=== PATIENT | male | born 1990 | race Caucasian/White ===

== ENCOUNTER 2020-03-09 08:18 | Emergency (ER) | payer BC ==
[2020-03-09 08:35] VITALS: BP 121/95; PULSE 74
--- NOTE | 2020-03-09 09:15 | EDM.PDOC ---
ED HPI GENERAL MEDICAL PROBLEM - General Chief Complaint: Abdominal Pain Stated Complaint: RT SIDE PAIN Time Seen by Provider: 03/09/20 09:02 - History of Present Illness INITIAL COMMENTS - FREE TEXT/NARRATIVE: 29-year-old male comes to the emergency room with abdominal pain. Patient has had on and off abdominal pain mostly on the right side for the last 4 to 5 weeks. He has not had associated vomiting diarrhea or constipation with this. Patient had a CAT scan done at the beginning of this month that may been suggestive of umbilical hernia but no acute pathology identified. The patient can only correlate the onset of this pain perhaps associated with dairy products. The pain is mostly right upper quadrant but tends to extend down into the right lower quadrant and occasionally into his back. Patient denies any bur angel or frequency with urination. Right Flank Pain Score (Numeric/FACES): 7 - Related Data Allergies Allergy/AdvReac Type Severity Reaction Status Date / Time Penicillins Allergy Cannot Verified 03/09/20 08:35 Remember pseudoephedrine Allergy Other Verified 03/09/20 08:35 Home Meds: Home Meds . [No Known Home Meds] 12/31/15 [History] Past Medical History - Past Health History Medical/Surgical History: Denies Medical/Surgical History Gastrointestinal History: Reports: GERD (untreated) Endocrine/Metabolic History: Reports: Obesity/BMI 30+ - Past Surgical History HEENT Surgical History: Reports: Adenoidectomy, Tonsillectomy Social & Family History - Living Situation & Occupation Living situation: Reports: , with Spouse Occupation: Employed ED ROS GENERAL - Review of Systems Review Of Systems: See Below Constitutional: Reports: No Symptoms HEENT: Reports: No Symptoms Respiratory: Reports: No Symptoms Cardiovascular: Reports: No Symptoms GI/Abdominal: Reports: Abdominal Pain. Denies: Constipation, Diarrhea, Nausea, Vomiting : Reports: No Symptoms Musculoskeletal: Reports: No Symptoms Skin: Reports: No Symptoms Neurological: Reports: No Symptoms Psychiatric: Reports: No Symptoms Hematologic/Lymphatic: Reports: No Symptoms ED EXAM, GI/ABD - Physical Exam Exam: See Below Exam Limited By: No Limitations General Appearance: Alert, No Apparent Distress Head: Atraumatic, Normocephalic Neck: Normal Inspection, Supple, Non-Tender, Full Range of Motion Respiratory/Chest: No Respiratory Distress, Lungs Clear, Normal Breath Sounds Cardiovascular: Regular Rate, Rhythm, No Edema, No Murmur GI/Abdominal Exam: Normal Bowel Sounds, Soft, Other (Significant obesity. He has some right-sided discomfort with palpation from the upper portion of the lower quadrant on up. This seems to be more lateral however he did have fairly significant discomfort in the area over the gallbladder.) Back Exam: Normal Inspection, CVA Tenderness (R) (This is somewhat vague). No: CVA Tenderness (L) Course - Vital Signs Last Recorded V/S: Last Vital Signs Temp 36.6 C 03/09/20 08:30 Pulse 74 03/09/20 08:30 Resp 16 03/09/20 08:30 BP 121/95 H 03/09/20 08:30 Pulse Ox 96 03/09/20 08:30 - Orders/Labs/Meds Labs: Laboratory Tests 03/09/20 03/09/20 03/09/20 Range/Units 09:45 09:45 11:05 WBC 7.03 (4.23-9.07) K/mm3 RBC 5.71 (4.63-6.08) M/mm3 Hgb 15.3 (13.7-17.5) gm/dl Hct 48.0 (40.1-51.0) % MCV 84.1 (79.0-92.2) fl MCH 26.8 (25.7-32.2) pg MCHC 31.9 L (32.2-35.5) g/dl RDW Std Deviation 42.2 (35.1-43.9) fL Plt Count 211 (163-337) K/mm3 MPV 13.0 H (9.4-12.3) fl Neut % (Auto) 64.1 (34.0-67.9) % Lymph % (Auto) 26.7 (21.8-53.1) % [place] % (Auto) 7.8 (5.3-12.2) % Eos % (Auto) 1.0 (0.8-7.0) Baso % (Auto) 0.3 (0.1-1.2) % Neut # (Auto) 4.50 (1.78-5.38) K/mm3 Lymph # (Auto) 1.88 (1.32-3.57) K/mm3 [place] # (Auto) 0.55 (0.30-0.82) K/mm3 Eos # (Auto) 0.07 (0.04-0.54) K/mm3 Baso # (Auto) 0.02 (0.01-0.08) K/mm3 Sodium 142 (136-145) mEq/L Potassium 4.5 (3.5-5.1) mEq/L Chloride 106 (98-107) mEq/L Carbon Dioxide 28 (21-32) mEq/L Anion Gap 12.5 (5-15) BUN 11 (7-18) mg/dL Creatinine 0.9 (0.7-1.3) mg/dL Est Cr Clr Drug Dosing 127.30 mL/min Estimated GFR (MDRD) > 60 (>60) mL/min BUN/Creatinine Ratio 12.2 L (14-18) Glucose 86 (74-106) mg/dL Calcium 9.1 (8.5-10.1) mg/dL Total Bilirubin 0.5 (0.2-1.0) mg/dL AST 30 (15-37) U/L ALT 69 H (16-63) U/L Alkaline Phosphatase 94 (46-116) U/L Total Protein 7.1 (6.4-8.2) g/dl Albumin 3.6 (3.4-5.0) g/dl Globulin 3.5 gm/dL Albumin/Globulin Ratio 1.0 (1-2) Lipase 81 (73-393) U/L Urine Color Yellow (Yellow) Urine Appearance Clear (Clear) Urine pH 7.5 (5.0-8.0) Ur Specific [place] 1.025 (1.005-1.030) Urine Protein Negative (Negative) Urine Glucose (UA) Negative (Negative) Urine Ketones Negative (Negative) Urine Occult Blood Negative (Negative) Urine Nitrite Negative (Negative) Urine Bilirubin Negative (Negative) Urine Urobilinogen 0.2 (0.2-1.0) Ur Leukocyte Esterase Negative (Negative) - Re-Assessments/Exams Free Text/Narrative Re-Assessment/Exam: 03/09/20 11:01 The blood work is unrevealing at this point. Urinalysis has not been obtained. 03/09/20 11:49 Laboratory evaluation including the urinalysis is unrevealing. I did discuss the pros and cons of a CT with the patient and we both agree that repeating it is of little to no benefit. We will proceed with an outpatient gallbladder ultrasound. At this time I think his pain could perhaps be muscle skeletal versus gallbladder. Not acting like a kidney stone and this probably would have shown up on his CT a few weeks ago. He has no rebound or guarding. Departure - Departure Time of Disposition: 11:52 Disposition: Home, Self-Care 01 Clinical Impression: Right upper quadrant pain - Discharge Information Referrals: Tiffani Rodas MD [Primary Care Provider] - Forms: ED Department Discharge Additional Instructions: Return to the emergency room with any questions problems or worsening symptoms. Follow-up with your regular physician at the end of this week. Have your gallbladder ultrasound done as directed. They will call and schedule this. You should follow-up with your regular healthcare provider to get the results of this. Consider Tylenol on a regular basis for the discomfort. Sepsis Event Note (ED) - Evaluation Sepsis Screening Result: No Definite Risk - Focused Exam Vital Signs: Vital Signs Temp Pulse Resp BP Pulse Ox 03/09/20 08:30 36.6 C 74 16 121/95 H 96
== END 2020-03-09 12:04 | disposition home or self-care (01) ==
LOC: JD.ED 08:18
DX: R10.11 Right upper quadrant pain (principal); E66.9 Obesity, unspecified; Z68.41 Body mass index [BMI] 40.0-44.9, adult; Z88.0 Allergy status to penicillin; Z88.8 Allergy status to other drugs, medicaments and biological substances
CPT/HCPCS: 36415; 80053; 81003; 83690; 85025; 99283; 99284

== ENCOUNTER 2020-04-20 11:13 | Emergency (ER) | payer BC ==
[2020-04-20] MEDS ORDERED: Ondansetron 4 MG/2 ML SDV IVPUSH ONE (11:45)
[2020-04-20] MEDS ORDERED: Sodium Chloride 0.9% 1,000 ML IV SCH (11:45)
[2020-04-20] MEDS ORDERED: HYDROmorphone 1 MG/ML Syringe IVPUSH STA (11:45)
[2020-04-20] MEDS ORDERED: Sodium Chloride 0.9% 10 ML Syringe FLUSH PRN (11:47)
[2020-04-20] MEDS ORDERED: Alum Hydrox/Mag Hydrox/Simeth 30 ML, Lidocaine 2% 15 ML PO ONE ×2 (11:48)
--- NOTE | 2020-04-20 11:54 | EDM.PDOC ---
ED HPI GENERAL MEDICAL PROBLEM - General Chief Complaint: Abdominal Pain Stated Complaint: POSSIBLE HERNIA /VOMITING X 2 WEEKS Time Seen by Provider: 04/20/20 11:34 Source of Information: Reports: Patient, RN Notes Reviewed History Limitations: Reports: No Limitations - History of Present Illness INITIAL COMMENTS - FREE TEXT/NARRATIVE: Patient is a 29-year-old male who presents to the ED for the evaluation of his abdominal pain, with associated nausea/vomiting. Patient notes that he does have an umbilical hernia, that he was diagnosed with roughly 2 months ago. He was worked up at [facility], but states he transferred care to our facility with Silvino Robles, and Dr. Banuelos for ongoing management. He had an appointment to see Dr. Banuelos roughly 2 weeks ago but he had a slight cough so they turned him away. His Covid test at that time was negative. He has not reported any increase in symptoms that would suggest Covid infection. He notes that he does have history of reflux with this hernia, and notes that his cough was due to that. He did reschedule his appoint with Dr. Banuelos, this week Monday. He does note however for the last 2 weeks, he has not been able to keep anything down for solid food and has been trying to keep up with Pedialyte and Gatorade. He states anytime he tries to eat solid food, it comes straight back up along with some stomach bile. He does note that he has lost about 15 to 20 pounds of weight over the last 2 to 3 weeks as well. He has no fevers or chills, cough, or shortness of breath, he does have some abdomen tenderness, by the hernia, and generalized around this. He notes that it hurts quite a bit to take a deep breath, so he feels subjectively short of breath due to this. Patient denies any other abdominal surgeries. Abdomen Pain Score (Numeric/FACES): 4 - Related Data Allergies Allergy/AdvReac Type Severity Reaction Status Date / Time Penicillins Allergy Cannot Verified 04/20/20 11:24 Remember pseudoephedrine Allergy Other Verified 04/20/20 11:24 Home Meds: Home Meds Cyclobenzaprine [Flexeril] 10 mg PO BID PRN 04/20/20 [History] Ondansetron [Zofran ODT] 8 mg SL ASDIRECTED PRN 04/20/20 [History] Past Medical History Gastrointestinal History: Reports: GERD, Other (See Below) Other Gastrointestinal History: umbilical hernia Musculoskeletal History: Reports: Fracture Endocrine/Metabolic History: Reports: Obesity/BMI 30+ - Past Surgical History HEENT Surgical History: Reports: Adenoidectomy, Tonsillectomy Social & Family History - Family History Family Medical History: No Pertinent Family History - Tobacco Use Tobacco Use Status *Q: Never Tobacco User Second Hand Smoke Exposure: No - Caffeine Use Caffeine Use: Reports: Soda - Recreational Drug Use Recreational Drug Use: No - Living Situation & Occupation Living situation: Reports: , with Spouse Occupation: Employed ED ROS GENERAL - Review of Systems Review Of Systems: Comprehensive ROS is negative, except as noted in HPI. ED EXAM, GI/ABD - Physical Exam Exam: See Below Exam Limited By: No Limitations General Appearance: Alert, WD/WN, No Apparent Distress Respiratory/Chest: No Respiratory Distress, Lungs Clear, Normal Breath Sounds, No Accessory Muscle Use, Chest Non-Tender Cardiovascular: Normal Peripheral Pulses, Regular Rate, Rhythm, No Edema GI/Abdominal Exam: Normal Bowel Sounds, Soft, No Distention, No Mass, Hernia (umbilical noted 12 o clock) Back Exam: Other (There are 2 areas on the patient's back, that he was suspicious of after getting the possible metastatic diagnosis. 1 is a pedunculated lesion on the left mid thoracic area, seems to be weeping at the base roughly dime sized. There is another area on the right shoulder as well, patient notes he has had a dermatologic work-up at some point and they told him not to worry about it.) Extremities: Normal Inspection, Normal Capillary Refill Neurological: Alert, Oriented, Normal Cognition, No Motor/Sensory Deficits Psychiatric: Normal Affect, Normal Mood Skin Exam: Warm, Dry, Intact, Normal Color, No Rash Course - Vital Signs Last Recorded V/S: Last Vital Signs Temp 98.9 F 04/20/20 16:47 Pulse 96 04/20/20 16:47 Resp 18 04/20/20 16:47 BP 132/93 H 04/20/20 16:47 Pulse Ox 96 04/20/20 16:47 - Orders/Labs/Meds Orders: Active Orders 24 hr Category Date Time Status Peripheral IV Insertion Adult [OM.PC] Routine Oth 04/20/20 11:47 Ordered Labs: Laboratory Tests 04/20/20 04/20/20 04/20/20 Range/Units 11:55 11:55 12:10 WBC 11.62 H (4.23-9.07) K/mm3 RBC 6.23 H (4.63-6.08) M/mm3 Hgb 16.5 (13.7-17.5) gm/dl Hct 50.6 (40.1-51.0) % MCV 81.2 (79.0-92.2) fl MCH 26.5 (25.7-32.2) pg MCHC 32.6 (32.2-35.5) g/dl RDW Std Deviation 40.7 (35.1-43.9) fL Plt Count 224 (163-337) K/mm3 MPV 13.3 H (9.4-12.3) fl Neutrophils % (Manual) 79 H (40-60) % Band Neutrophils % 0 (0-10) % Lymphocytes % (Manual) 14 L (20-40) % Atypical Lymphs % 0 % Monocytes % (Manual) 7 (2-10) % Eosinophils % (Manual) 0 L (0.8-7.0) % Basophils % (Manual) 0 L (0.2-1.2) Platelet Estimate Adequate RBC Morph Comment Normal Sodium 140 (136-145) mEq/L Potassium 4.1 (3.5-5.1) mEq/L Chloride 103 (98-107) mEq/L Carbon Dioxide 26 (21-32) mEq/L Anion Gap 15.1 H (5-15) BUN 10 (7-18) mg/dL Creatinine 0.9 (0.7-1.3) mg/dL Est Cr Clr Drug Dosing 127.30 mL/min Estimated GFR (MDRD) > 60 (>60) mL/min BUN/Creatinine Ratio 11.1 L (14-18) Glucose 85 (74-106) mg/dL Lactic Acid 1.1 (0.4-2.0) mmol/L Calcium 9.4 (8.5-10.1) mg/dL Total Bilirubin 0.8 (0.2-1.0) mg/dL AST 35 (15-37) U/L ALT 46 (16-63) U/L Alkaline Phosphatase 120 H (46-116) U/L C-Reactive Protein 4.6 H* (<1.0) mg/dL Total Protein 7.6 (6.4-8.2) g/dl Albumin 3.8 (3.4-5.0) g/dl Globulin 3.8 gm/dL Albumin/Globulin Ratio 1.0 (1-2) Urine Color (Yellow) Urine Appearance (Clear) Urine pH (5.0-8.0) Ur Specific [place] (1.005-1.030) Urine Protein (Negative) Urine Glucose (UA) (Negative) Urine Ketones (Negative) Urine Occult Blood (Negative) Urine Nitrite (Negative) Urine Bilirubin (Negative) Urine Urobilinogen (0.2-1.0) Ur Leukocyte Esterase (Negative) Urine RBC (0-5) /hpf Urine WBC (0-5) /hpf Ur Squamous Epith Cells (0-5) /hpf Urine Bacteria (FEW) /hpf Urine Mucus (FEW) /hpf Influenza Type A RNA (NEGATIVE) Influenza Type B RNA (NEGATIVE) SARS-CoV-2 RNA (MARI) (NEGATIVE) 04/20/20 04/20/20 Range/Units 14:25 14:45 WBC (4.23-9.07) K/mm3 RBC (4.63-6.08) M/mm3 Hgb (13.7-17.5) gm/dl Hct (40.1-51.0) % MCV (79.0-92.2) fl MCH (25.7-32.2) pg MCHC (32.2-35.5) g/dl RDW Std Deviation (35.1-43.9) fL Plt Count (163-337) K/mm3 MPV (9.4-12.3) fl Neutrophils % (Manual) (40-60) % Band Neutrophils % (0-10) % Lymphocytes % (Manual) (20-40) % Atypical Lymphs % % Monocytes % (Manual) (2-10) % Eosinophils % (Manual) (0.8-7.0) % Basophils % (Manual) (0.2-1.2) Platelet Estimate RBC Morph Comment Sodium (136-145) mEq/L Potassium (3.5-5.1) mEq/L Chloride (98-107) mEq/L Carbon Dioxide (21-32) mEq/L Anion Gap (5-15) BUN (7-18) mg/dL Creatinine (0.7-1.3) mg/dL Est Cr Clr Drug Dosing mL/min Estimated GFR (MDRD) (>60) mL/min BUN/Creatinine Ratio (14-18) Glucose (74-106) mg/dL Lactic Acid (0.4-2.0) mmol/L Calcium (8.5-10.1) mg/dL Total Bilirubin (0.2-1.0) mg/dL AST (15-37) U/L ALT (16-63) U/L Alkaline Phosphatase (46-116) U/L C-Reactive Protein (<1.0) mg/dL Total Protein (6.4-8.2) g/dl Albumin (3.4-5.0) g/dl Globulin gm/dL Albumin/Globulin Ratio (1-2) Urine Color Yellow (Yellow) Urine Appearance Clear (Clear) Urine pH 7.5 (5.0-8.0) Ur Specific [place] 1.010 (1.005-1.030) Urine Protein Negative (Negative) Urine Glucose (UA) Negative (Negative) Urine Ketones 3+ H (Negative) Urine Occult Blood Trace-intact H (Negative) Urine Nitrite Negative (Negative) Urine Bilirubin Negative (Negative) Urine Urobilinogen 0.2 (0.2-1.0) Ur Leukocyte Esterase Negative (Negative) Urine RBC 0-5 (0-5) /hpf Urine WBC 0-5 (0-5) /hpf Ur Squamous Epith Cells 0-5 (0-5) /hpf Urine Bacteria Few (FEW) /hpf Urine Mucus Not seen (FEW) /hpf Influenza Type A RNA Negative (NEGATIVE) Influenza Type B RNA Negative (NEGATIVE) SARS-CoV-2 RNA (MARI) Negative (NEGATIVE) Meds: Medications Discontinued Medications Generic Name Dose Route Start Last Admin Trade Name Freq PRN Reason Stop Dose Admin Al Hydroxide/Mg Hydroxide 30 0 ml 04/20/20 11:48 04/20/20 12:23 ml/ Lidocaine HCl 15 ml PO 04/20/20 11:49 45 ml ONETIME ONE Administration Diatrizoate Meglum/Diatrizoate Sod 90 ml 04/20/20 12:32 04/20/20 12:36 Gastrografin 37% PO 04/20/20 12:33 45 ml ONETIME ONE Administration Hydromorphone HCl 1 mg 04/20/20 11:45 04/20/20 12:17 Dilaudid IVPUSH 04/20/20 11:46 1 mg ONETIME STA Administration Hydromorphone HCl 1 mg 04/20/20 16:25 04/20/20 16:34 Dilaudid IVPUSH 04/20/20 16:26 1 mg ONETIME ONE Administration Sodium Chloride 1,000 mls @ 999 mls/hr 04/20/20 11:45 04/20/20 12:22 Normal Saline IV 999 mls/hr ASDIRECTED EVAN Administration Iopamidol 25 ml 04/20/20 12:32 04/20/20 12:35 Isovue-300 (61%) IVPUSH 04/20/20 12:33 25 ml ONETIME ONE Administration Iopamidol 100 ml 04/20/20 12:32 04/20/20 12:35 Isovue-300 (61%) IVPUSH 04/20/20 12:33 100 ml ONETIME ONE Administration Ondansetron HCl 4 mg 04/20/20 11:45 04/20/20 12:15 Zofran IVPUSH 04/20/20 11:46 4 mg ONETIME ONE Administration Sodium Chloride 10 ml 04/20/20 11:47 04/20/20 12:20 Saline Flush FLUSH 10 ml ASDIRECTED PRN Administration Keep Vein Open Sodium Chloride 10 ml 04/20/20 12:32 04/20/20 12:36 Saline Flush FLUSH 04/20/20 12:33 10 ml ONETIME ONE Administration - Re-Assessments/Exams Free Text/Narrative Re-Assessment/Exam: 04/20/20 11:53 Patient presents to the ED for his hernia with associated nausea/vomiting. I am concerned about the possibility of a strangulated hernia. We will get CT imaging for evaluation, get basic labs given some pain medications some nausea medications, for initial evaluation and management. 04/20/20 12:51 Patient's labs have been done, demonstrate no major focal abnormalities, CRP mildly elevated at 4.7, lactic acid in normal limits at 1.1. Again I am worried that there might be some strangulation going on. And it is also concerning that he is lost over 15 to 20 pounds in the last 2 weeks as he has not been able to eat any solid foods. Still awaiting CT results, but may be we can get the gentleman in for more urgent evaluation and/or management. 04/20/20 13:[address] has been performed, there are multiple nodular densities within the approximate greater omentum, suspicious for numerous lymph nodes possibly from metastatic disease. Ascites is identified within the abdomen and pelvis. Vague low-density lesions within the right lobe possibly due to metastatic lesions. Small left sided pleural effusion, and mild basilar left atelectasis, and there is a fat-containing umbilical hernia with no inflammatory change to suggest strangulation at this time. I did relay this information to the patient, we will get a chest x-ray, and a scrotum ultrasound for further evaluation. I did discuss this with Dr. Caballero as well, he states that testicle lesions, or lymphoma would be in the differential for possible etiology. I will try to call oncology at [facility], for further work-up. 04/20/20 14:53 Dr. Conley was oncologist outside [employer], and does tentatively accept the patient for admission pending discharges. They know it will be a few hours before he can be transferred to [place]. Again we are doing some further work-up to include ultrasounds. Chest x-ray was without remarkable findings at today's visit. We will try to get the patient transferred to [facility] for possible biopsies of areas that were suspicious. 04/20/20 15:52 Patient's COVID-19 screen did come back negative. We will discharge him at this time, for transfer to [place]. 04/20/20 15:58 There are a few skin lesions on the back, the patient was concerned about, I did tell him to follow-up with the doctors in [place], for possible biopsies of those areas. 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 A CT was performed, and there are multiple lymph nodes, that are suspicious for metastatic disease. You are being sent to [facility] in [place] for further evaluation, for biopsies. Please be forthcoming with the doctors about any lesions or otherwise on your body, so that they can provide you appropriate care. It is likely that you will just have biopsies taken, will need to wait a little bit for results, and then have an appropriate plan set forth for you. When you are discharged from this hospital, please try not to delay getting to [place], get what you need at home, and go straight to [place] for further management. You will probably have to present to the ER desk, and tell them you are there for direct admission. Sepsis Event Note (ED) - Evaluation Sepsis Screening Result: No Definite Risk - Focused Exam Vital Signs: Vital Signs Temp Pulse Resp BP Pulse Ox 04/20/20 16:47 98.9 F 96 18 132/93 H 96 04/20/20 16:25 98.9 F 96 18 132/93 H 96 04/20/20 11:20 96.9 F 104 H 18 140/102 H 96 - My Orders Last 24 Hours: My Active Orders 04/20/20 11:47 Peripheral IV Insertion Adult [OM.PC] Routine - Assessment/Plan Last 24 Hours: My Active Orders 04/20/20 11:47 Peripheral IV Insertion Adult [OM.PC] Routine
[2020-04-20] MEDS ORDERED: Sodium Chloride 0.9% 10 ML Syringe FLUSH ONE (12:32)
[2020-04-20] MEDS ORDERED: Diatrizoate Meglumine/Diatrizoate Sodium 37% 120 ML Bottle PO ONE (12:32)
[2020-04-20] MEDS ORDERED: Iopamidol 612 MG/ML 50 ML SDV IVPUSH ONE (12:32)
[2020-04-20] MEDS ORDERED: Iopamidol 612 MG/ML 100 ML Bottle IVPUSH ONE (12:32)
--- NOTE | 2020-04-20 13:16 | CT ---
CT abdomen and pelvis Technique: Multiple axial sections were obtained from above the dome of the diaphragm inferiorly through the pubic symphysis. Intravenous contrast was utilized. No oral contrast has been given. Reconstructed coronal and sagittal images were obtained. Findings: Small left-sided pleural effusion is seen. Minimal left basilar atelectasis is noted. There is a mild amount of ascites seen around the liver as well as within the abdomen and pelvis. Low density areas are seen within the left lobe of the liver. These low-density lesions are not well identified but the largest lesion measures approximately 2.6 cm. There is some fatty infiltration also seen within the right lobe of the liver. Spleen shows no focal abnormality. Adrenal glands show no nodule. Pancreas is within normal limits. Multiple small scattered nodular densities are seen anteriorly within the approximate greater omentum most likely due to multiple lymph nodes raising the possibility of metastatic disease. Small fat-containing umbilical hernia is noted. No pelvic mass or adenopathy is appreciated. Kidneys show symmetric contrast enhancement with no hydronephrosis or discrete mass. Delayed images show contrast excretion from both kidneys into nondilated ureters and into the bladder. Bone window settings were reviewed which show nothing acute. Impression: 1. Multiple nodular densities within the approximate greater omentum suspicious for numerous lymph nodes possibly from metastatic disease. 2. Ascites is identified within the abdomen and pelvis. 3. Vague low density lesions within the right lobes possibly due to metastatic lesions. 4. Small left-sided pleural effusion and mild left basilar atelectasis. 5. Fat-containing umbilical hernia with no inflammatory change. Diagnostic code #9
--- NOTE | 2020-04-20 14:46 | CR ---
Chest: 2 views of the chest were obtained. Comparison: Prior chest x-ray of 12/31/15. Heart size and mediastinum are normal. Lungs are clear with no acute parenchymal change. Bony structures appear within normal limits for the patient's age. Impression: 1. Nothing acute is seen on 2 view chest x-ray. Diagnostic code #1
[2020-04-20 15:39] LABS: CORONAVIRUS COVID-19 NAA NEGATIVE (NEGATIVE)
--- NOTE | 2020-04-20 15:58 | US ---
Testicular ultrasound: Multiple real-time images of both testicles were obtained. Comparison: No prior testicular imaging is available. Findings: Testicles show small calcifications. These are fairly widely distributed and most likely are benign. No focal abnormality is otherwise seen. Both arterial and venous blood flow are seen. Very small amount of fluid is seen around the left testicle. There is a left-sided epididymal cyst measuring 8 mm. Measurements: Right testicle: 4.4 x 2.2 x 2.8 cm Left testicle: 4.8 x 2.1 x 2.9 cm Impression: 1. Small scattered calcifications within both testicles. These are most likely benign given their wide distribution. 2. Other findings as noted above which are benign. Diagnostic code #3
--- NOTE | 2020-04-20 15:59 | US ---
Limited abdominal ultrasound: Multiple real-time images of the upper right abdomen were obtained. Comparison: Prior CT abdomen and pelvis performed earlier on the same day. Limitations: Poor ultrasound windows, unable to visualize left lobe of the liver, right lobe poorly visualized Findings: Liver not well seen. Gallbladder shows no shadowing gallstones. No gallbladder wall thickening is appreciated. Right kidney shows no hydronephrosis or mass. Right kidney has a length of approximately 10.6 cm. Pancreas is poorly seen. Scattered ascites is present. Main portal vein shows normal hepatopedal flow. Impression: 1. Suboptimal study as noted above. 2. Scattered ascites is seen. 3. No other gross abnormality is appreciated. Diagnostic code #2
[2020-04-20] MEDS ORDERED: HYDROmorphone 1 MG/ML Syringe IVPUSH ONE (16:25)
[2020-04-20 17:04] VITALS: BP 132/93
[2020-04-20 17:11] VITALS: PULSE 96
== END 2020-04-20 16:55 ==
LOC: JD.ED 11:13
DX: C77.8 Secondary and unspecified malignant neoplasm of lymph nodes of multiple regions (principal); C80.1 Malignant (primary) neoplasm, unspecified; J90 Pleural effusion, not elsewhere classified; R18.8 Other ascites; Z88.5 Allergy status to narcotic agent; Z88.8 Allergy status to other drugs, medicaments and biological substances
CPT/HCPCS: 0240U; 36415; 71046; 74177; 76705; 76870; 80053; 81001; 83605; 85007; 85027; 86140; 93975; 96374; 96375; 96376; 99285; A9270; J1170; J2405; J7030; Q9963; Q9967

== ENCOUNTER 2020-05-24 15:17 | Emergency (ER) | payer BC ==
[2020-05-24 15:53] VITALS: BP 141/99; PULSE 87
--- NOTE | 2020-05-24 17:02 | EDM.PDOC ---
ED HPI GENERAL MEDICAL PROBLEM - General Chief Complaint: Abdominal Pain Stated Complaint: ABDOMINAL PAIN Time Seen by Provider: 05/24/20 16:45 Source of Information: Reports: Patient, Family History Limitations: Reports: No Limitations - History of Present Illness INITIAL COMMENTS - FREE TEXT/NARRATIVE: 29-year-old male presents to the ED due to increased abdominal pain over the last 3 days. 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 Patient has developed significant ascites and required 4 paracentesis treatments in the last month to relieve abdominal pain and pressure. Today he presents with increased abdominal pain and pressure with difficulty taking a full deep breath. Patient last had chemotherapy on May 20. This subsequently has produced significant intermittent abdominal cramping pain with large volume diarrhea stool x3 yesterday and twice today. He took Imodium 2 tablets with initial diarrhea stool and subsequently 1 further after diarrhea stool. Mild associated nausea. He has been keeping down fluids and feels he has had adequate urinary flow. Denies fever or chills. Of note the patient is on Lovenox subcu once daily in the morning for prevention of DVT/pulmonary embolism. When the patient left [facility] and [place] he was on Lovenox twice daily. Patient is currently being followed by Dr. Retana oncologist at [facility] and care is going to be continued here in [place] at the infusion center by Dr. Joshua. She is currently on fentanyl patch he believes 12 mcg/h. He has a prescription for 50 mcg/h patches which she will fill tentatively tomorrow. Onset: Gradual Onset Date: 05/22/20 Duration: Day(s):, Getting Worse Location: Reports: Abdomen (Diffuse abdominal pressure discomfort with increased difficulty breathing today due to ascites.) Quality: Reports: Ache, Pressure, Other (Occasional sharp stabbing cramping pain usually) Severity: Severe Improves with: Reports: None Worsens with: Reports: Other Context: Reports: Other (She does identify April 202019 to have ascites secondary to nonspecific malignancy involving the omentum and peritoneum. Subsequent biopsy of lymph nodes revealed a nonspecific adenocarcinoma. Upper GI endoscopy proved to be negative. Colonoscopy proved to be difficult due to retention of stool but no definitive mass was appreciated in the large bowel. At present he is receiving chemotherapy on a weekly basis aimed at adenocarcinoma of the colon.). Denies: Activity, Exercise, Lifting, Sick Contact, Trauma Associated Symptoms: Reports: Cough, cough w sputum, Loss of Appetite, Malaise, Nausea/Vomiting, Shortness of Breath, Weakness (Intermittent nausea no vomiting Fuhs weakness). Denies: Confusion, Chest Pain, Diaphoresis, Fever/Chills, Headaches Treatments WIRE DRAWING SETTER: Reports: Other (see below) Other Treatments WIRE DRAWING SETTER: dilaudid 3 mg Abdomen Pain Score (Numeric/FACES): 7 - Related Data Allergies Allergy/AdvReac Type Severity Reaction Status Date / Time Penicillins Allergy Severe Cannot Verified 05/24/20 15:45 Remember pseudoephedrine Allergy Severe Other Verified 05/24/20 15:45 Home Meds: Home Meds Cyclobenzaprine [Flexeril] 10 mg PO BID PRN 04/20/20 [History] Ondansetron [Zofran ODT] 8 mg SL ASDIRECTED PRN 04/20/20 [History] Past Medical History Other Cardiovascular History: 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-getting lovenox shots Gastrointestinal History: Reports: GERD, Other (See Below) Other Gastrointestinal History: umbilical hernia Musculoskeletal History: Reports: Fracture Endocrine/Metabolic History: Reports: Obesity/BMI 30+ Oncologic (Cancer) History: Reports: Other (See Below) Other Oncologic History: lymph node of abdominal wall - Past Surgical History HEENT Surgical History: Reports: Adenoidectomy, Tonsillectomy Social & Family History - Family History Family Medical History: No Pertinent Family History - Tobacco Use Tobacco Use Status *Q: Former Tobacco User Used Tobacco, but Quit: Yes Month/Year Tobacco Last Used: 3 months - Caffeine Use Caffeine Use: Reports: None - Recreational Drug Use Recreational Drug Use: No - Living Situation & Occupation Living situation: Reports: , with Spouse Occupation: Employed ED ROS GENERAL - Review of Systems Review Of Systems: See Below Constitutional: Reports: Malaise, Weakness, Fatigue, Decreased Appetite, Weight Loss. Denies: Fever, Chills HEENT: Reports: No Symptoms Respiratory: Reports: Shortness of Breath, Cough. Denies: Wheezing, Pleuritic Chest Pain, Sputum, Hemoptysis (Nonproductive cough) Cardiovascular: Reports: Dyspnea on Exertion ( Mild edema lower extremities), Edema (Remittent.), Lightheadedness, Orthopnea. Denies: Chest Pain, Blood Pressure Problem, Claudication, Palpitations Endocrine: Reports: Fatigue GI/Abdominal: Reports: Abdominal Pain (See history of present illness), Diarrhea (Dense chemotherapy given 3 days ago. On average 3 loose bowel movements per day) : Reports: No Symptoms Musculoskeletal: Reports: No Symptoms Skin: Reports: No Symptoms Neurological: Reports: No Symptoms Psychiatric: Reports: No Symptoms Hematologic/Lymphatic: Reports: No Symptoms Immunologic: Reports: No Symptoms ED EXAM, GI/ABD - Physical Exam Exam: See Below Exam Limited By: No Limitations General Appearance: Alert, WD/WN, Mild Distress, Other (Patient is pallid in color and appears to be in moderate discomfort. Temperature was 35.8. Heart rate 87 and sinus on the monitor respiratory of 20 with O2 sats of 97% room air BP initially elevated 1 4199.) Eyes: Bilateral: Normal Appearance (Mild blepharal pallor and very minimal scleral icterus appreciated on exam) Throat/Mouth: Other (Tongue is moist. No oropharyngeal thrush or) Head: Atraumatic, Normocephalic ( inflammation) Neck: Normal Inspection, Supple, Non-Tender, Full Range of Motion. No: Carotid Bruit, Lymphadenopathy (L), Lymphadenopathy (R) Respiratory/Chest: Lungs Clear (Tachypnea at rest), Normal Breath Sounds, No Accessory Muscle Use, Respiratory Distress. No: Rales, Rhonchi, Wheezing Cardiovascular: Normal Peripheral Pulses, Regular Rate, Rhythm, No Edema, No Gallop, No Murmur, No Rub GI/Abdominal Exam: Distended (The abdomen is diffusely distended and firm to palpation compatible with ascites. No palpable masses appreciated on the abdominal wall), Tender (Diffuse abdominal tenderness worse right upper quadrant of the abdomen distribution of his liver. Liver is palpable 1 cm below the right costal margin.), Abnormal Bowel Sounds (Bowel sounds are active in all 4 quadrants.), Hepatomegaly, Other (Abdominal wall has numerous superficial ecchymoses secondary to Lovenox injections twice daily for the last week). No: Splenomegaly Back Exam: Normal Inspection, Full Range of Motion. No: CVA Tenderness (L), CVA Tenderness (R) Extremities: Normal Inspection, Normal Range of Motion, Non-Tender, Pedal Edema (Is pedal edema right lower extremity) Neurological: Alert, Oriented, CN II-XII Intact, Normal Cognition Psychiatric: Normal Affect, Normal Mood Skin Exam: Warm, Dry, Intact, Pallor (Pallor.) Course - Vital Signs Last Recorded V/S: Last Vital Signs Temp 35.8 C L 05/24/20 15:51 Pulse 87 05/24/20 15:51 Resp 20 05/24/20 15:51 BP 141/99 H 05/24/20 15:51 Pulse Ox 97 05/24/20 15:51 - Orders/Labs/Meds Orders: Active Orders 24 hr Category Date Time Status Chest 1V Frontal [CR] Stat Exams 05/24/20 17:01 Taken fentaNYL [Duragesic] Med 05/24/20 22:45 Active 25 mcg TRDERM Q72H Medication Orders Fentanyl (Duragesic) 25 mcg TRDERM Q72H EVAN Last Admin: 05/24/20 23:02 Dose: 25 mcg Documented by: ROSALIE Meds: Medications Generic Name Dose Route Start Last Admin Trade Name Freq PRN Reason Stop Dose Admin Fentanyl 25 mcg 05/24/20 22:45 05/24/20 23:02 Duragesic TRDERM 25 mcg Q72H EVAN Administration Discontinued Medications Generic Name Dose Route Start Last Admin Trade Name Freq PRN Reason Stop Dose Admin Hydromorphone HCl 1 mg 05/24/20 18:04 05/24/20 19:35 Dilaudid IVPUSH 05/24/20 18:05 1 mg ONETIME ONE Administration Hydromorphone HCl Confirm 05/24/20 21:18 05/24/20 21:24 Dilaudid Administered 05/24/20 21:19 Not Given Dose 1 mg .ROUTE .STK-MED ONE Hydromorphone HCl 1 mg 05/24/20 21:20 05/24/20 21:37 Dilaudid IVPUSH 05/24/20 21:21 1 mg ONETIME ONE Administration Hydromorphone HCl 1 mg 05/24/20 22:31 05/24/20 23:01 Dilaudid IVPUSH 05/24/20 22:32 1 mg ONETIME ONE Administration Lidocaine/Epinephrine 20 ml 05/24/20 18:05 05/24/20 22:00 Xylocaine 1% With Epinephrine 1:100,000 INJECT 05/24/20 18:06 20 ml ONETIME ONE Administration Lidocaine/Epinephrine Confirm 05/24/20 18:17 05/24/20 21:25 Xylocaine 1% With Epinephrine 1:100,000 Administered 05/24/20 18:18 Not Given Dose 20 ml .ROUTE .STK-MED ONE Metoclopramide HCl 10 mg 05/24/20 21:21 05/24/20 21:35 Reglan IVPUSH 05/24/20 21:22 10 mg ONETIME ONE Administration Metoclopramide HCl Confirm 05/24/20 21:21 05/24/20 21:25 Reglan Administered 05/24/20 21:22 Not Given Dose 10 mg .ROUTE .STK-MED ONE Midazolam HCl 2 mg 05/24/20 18:05 Versed 1 Mg/Ml IVPUSH 05/24/20 18:06 ONETIME ONE Midazolam HCl Confirm 05/24/20 18:22 05/24/20 21:24 Versed 1 Mg/Ml Administered 05/24/20 18:23 Not Given Dose 4 mg .ROUTE .STK-MED ONE Midazolam HCl 2 mg 05/24/20 21:20 05/24/20 21:40 Versed 1 Mg/Ml IVPUSH 05/24/20 21:21 2 mg ONETIME ONE Administration - Radiology Interpretation Free Text/Narrative:: 29-year-old male presents to the ED in the hopes of getting a paracentesis done to relieve his diffuse abdominal pain. 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 Subsequently he was seen at [facility]. Initial biopsies there revealed a nonspecific adenocarcinoma. Upper GI endoscopy did n ot reveal any positive findings. Lower GI endoscopy revealed significant stool in the colon but no positive findings for a colonic tumor. Patient is being treated at this time by oncology services at [facility] in [place] primarily by Dr. Retana with a transfer to Dr. Joshua who comes to [place] every 2 weeks for treatment with chemotherapy at the infusion center to lessen his travel needs to [place]. Patient has had paracentesis x4 in the last month with the last procedure performed on May 20. Last dose of chemotherapy was given May 22. Patient has subsequently had mild nausea and diarrhea post chemotherapy treatment. Examination confirms significant ascites with decreased air entry to both lower lung lopez. No rales appreciated on exam of the lungs. Patient feels he is getting adequate fluids at this time and declines IV. He has a PICC line left antecubital fossa. Plan chest x-ray to be completed to make sure there is no significant pleural effusions. Plan will then be to perform paracentesis under local anesthetic. - Re-Assessments/Exams Free Text/Narrative Re-Assessment/Exam: 05/24/20 18:06 chest x-ray reveals decreased volume of both lung lopez due to ascites. There is mild diffuse vascular congestion pattern without pleural effusion. Cardiac silhouette is normal in size. Patient wishes to pursue paracentesis to relieve his shortness of breath. Last paracentesis was done 6 days ago in [facility] in [place]. Consent form to be signed. Plan to use lidocaine 1% with epinephrine since he is injecting himself once daily with Lovenox. 05/24/20 21:21 patient has been patiently waiting in the busy ER for paracentesis procedure to be performed. Initial medications i.e. Dilaudid 1 mg and Versed 1 mg have worn off. At present he is nauseated with increased diffuse abdominal pain due to a combination of invasion of the peritoneum from carcinoma and significant ascites. Patient will be given Reglan 10 mg IV with repeat Dilaudid 1 mg IV and Versed 2 mg IV at this time. Plan to go ahead with paracentesis once he is comfortable. 05/24/20 22:32 Attempts at paracentesis x2 were unsuccessful at removing any fluid from the abdominal cavity. I was fairly confident that I had reached the peritoneal cavity on both occasions. Patient tolerated procedure very well. Subsequent ultrasound performed at the bedside reveals only about 100 250 mils of fluid in the pelvis and a few pockets of fluid in the right paracolic gutter. I could see no fluid in the left paracolic gutter or around the spleen. Procedure was therefore abandoned. It appears that the patient's increased abdominal pain is actually probably invasion of tumor into the peritoneum. I believe his respiratory splinting is secondary to increased abdominal pain and inability to take a full deep breath. Bedside ultrasound did not reveal any significant fluid around the liver either. Urinary bladder is empty. Plan I am going to place the patient on 25 mcg/h fentanyl patch as he is currently been on the 12 mcg/h patches for the last 2 weeks without control of his pain. He has been using 2 mg Dilaudid tablets 1-1/2 tablets every 4 hours as needed for breakthrough pain with very little relief. Departure - Departure Time of Disposition: 22:45 Disposition: Home, Self-Care 01 Condition: Fair Clinical Impression: Adenocarcinoma carcinomatosis Abdominal pain Qualifiers: Abdominal location: generalized Qualified Code(s): R10.84 - Generalized abdominal pain - Discharge Information *PRESCRIPTION DRUG MONITORING PROGRAM REVIEWED*: Not Applicable *COPY OF PRESCRIPTION DRUG MONITORING REPORT IN PATIENT SIMONE: Not Applicable Instructions: Abdominal Pain, Adult, [id number] Referrals: Narayan Robles NP [Primary Care Provider] - Forms: ED Department Discharge Additional Instructions: Evaluation in the emergency room today in regards to increased abdominal pain and diffuse pressure throughout the abdomen worsened by deep breathing and movement. Associated development of diarrhea since having chemotherapy on Monday last week. Recent diagnosis of an adenocarcinoma in the abdomen of unclear source or etiology. 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 Concern today was of increased abdominal pressure discomfort felt to be secondary to accumulation of fluid in the abdomen which we called ascites. Last paracentesis or drainage of fluid from the abdomen was done 5 days ago while you were in [place]. An x-ray of your chest performed in the ED today revealed decreased filling of the lungs to about 65% of normal capacity felt to be limited by fluid in the abdomen. Unfortunately on attempts at removing fluid from the abdomen call paracentesis in your right lower quadrant no fluid was obtained. An ultrasound done at the bedside revealed only small pockets of fluid in the pelvis and right lower quadrant with no fluid in the left paracolic gutter. Therefore it appears that your limited ability to take a deep breath secondary to deep breathing making the abdominal pain worse. Pain management is required and I would suggest increasing her fentanyl patch in the morning from 12 mcg/h to 25 mcg/h which will get you through the next 72 hours and hopefully things can be sorted out with your insurance company about fentanyl prescription and appropriate dosage. Usually we would only double the dose every week to 2 weeks before increasing the dose. Also oral Dilaudid may not be very helpful as it is poorly absorbed. You might find Percocet 10/325 mg 1 tablet or 2 tablets every 4-6 hours for breakthrough pain more successful in pain management. Return to medical care this week as planned. Pain management needs to become involved in getting your abdominal pain under control. Return to medical care sooner if you develop any fever chills or persistent nausea and vomiting. Hopefully diarrhea will settle down with pain management. Fluids to be Gatorade/Powerade which is identical to IV fluid replacement. Ideally sipping 5 to 6 ounces per hour will usually be absorbed without aggravating diarrhea. Avoid all dairy products and no apple juice or grape juice until stools are formed back up after recent chemotherapy. Sepsis Event Note (ED) - Evaluation Sepsis Screening Result: No Definite Risk - Focused Exam Vital Signs: Vital Signs Temp Pulse Resp BP Pulse Ox 05/24/20 15:51 35.8 C L 87 20 141/99 H 97 - My Orders Last 24 Hours: My Active Orders 05/24/20 17:01 Chest 1V Frontal [CR] Stat 05/24/20 22:45 fentaNYL [Duragesic] 25 mcg TRDERM Q72H - Assessment/Plan Last 24 Hours: My Active Orders 05/24/20 17:01 Chest 1V Frontal [CR] Stat 05/24/20 22:45 fentaNYL [Duragesic] 25 mcg TRDERM Q72H
[2020-05-24] MEDS ORDERED: HYDROmorphone 1 MG/ML Syringe IVPUSH ONE ×3 (18:04→22:31)
[2020-05-24] MEDS ORDERED: Lidocaine 1% with EPINEPHrine 1:100,000 20 ML MDV INJECT ONE (18:05)
[2020-05-24] MEDS ORDERED: Midazolam 1 MG/ML 2 ML SDV IVPUSH ONE ×2 (18:05→21:20)
[2020-05-24] MEDS ORDERED: Lidocaine 1% with EPINEPHrine 1:100,000 10 ML MDV ONE (18:17)
[2020-05-24] MEDS ORDERED: Midazolam 1 MG/ML 2 ML SDV ONE (18:22)
[2020-05-24] MEDS ORDERED: HYDROmorphone 1 MG/ML Syringe ONE (21:18)
[2020-05-24] MEDS ORDERED: Metoclopramide 10 MG/2 ML SDV IVPUSH ONE (21:21)
[2020-05-24] MEDS ORDERED: Metoclopramide 10 MG/2 ML SDV ONE (21:21)
[2020-05-24] MEDS ORDERED: fentaNYL 25 MCG/HR Transdermal Patch TRDERM SCH (22:45)
--- NOTE | 2020-05-25 09:43 | CR ---
Chest: Portable view of the chest was obtained. Comparison: No prior chest imaging is available. Heart size and mediastinum are normal. Left-sided PICC line is seen with tip lying within the superior vena cava. Lungs are clear with no acute parenchymal change. Bony structures are grossly intact. Impression: 1. Presumed PICC line with tip lying within the superior vena cava. 2. Nothing acute is otherwise appreciated on portable chest x-ray. Diagnostic code #2
== END 2020-05-24 23:10 | disposition home or self-care (01) ==
LOC: JD.ED 15:17
DX: R10.84 Generalized abdominal pain (principal); C80.0 Disseminated malignant neoplasm, unspecified; E66.9 Obesity, unspecified; Z68.41 Body mass index [BMI] 40.0-44.9, adult; Z87.891 Personal history of nicotine dependence
CPT/HCPCS: 71045; 96374; 96375; 96376; 99152; 99284; A9270; J1170; J2250; J2765; 99285

== ENCOUNTER 2020-05-29 14:56 | Emergency (ER) | payer BC ==
[2020-05-29 15:27] VITALS: BP 156/108; PULSE 100
[2020-05-29] MEDS ORDERED: cefTRIAXone 2 GM in Sodium Chloride 0.9% 100 ML IV ONE (16:04)
--- NOTE | 2020-05-29 16:11 | EDM.PDOC ---
ED HPI GENERAL MEDICAL PROBLEM - General Chief Complaint: Skin Complaint Stated Complaint: PICC LINE IS HOT AND PAINFUL Time Seen by Provider: 05/29/20 15:40 Source of Information: Reports: Patient, Family (mother), RN Notes Reviewed History Limitations: Reports: No Limitations - History of Present Illness INITIAL COMMENTS - FREE TEXT/NARRATIVE: Patient is a 29-year-old male who presents to the ED for the evaluation of a suspected infection. Patient has extensive cancer, and does have a PICC line to his left inner arm. The dressing has no sort of drainage, and is intact, and it was last accessed or changed on May 27, 2020. Patient notes that his last chemo treatment was 05/22/2020. Patient notes that he just feels generalized fatigue, and pain all over which does not seem to be out of his normal aches and pains. He is had no nausea/vomiting/diarrhea, mother notes that he had a temperature at home of 99 F and 101 F. Patient states he does not feel febrile. He is complaining of some left lateral upper arm redness and warmth. Patient's oncologist is Dr. Vanessa but also will be seeing Dr. Johnston. Patient notes that he had a Neupogen injection on Monday, and also dexamethasone in his PICC line on Monday of this last week. He has had IM shots or injections to his left upper arm that he was aware of. Abdominal Pain Score (Numeric/FACES): 6 - Related Data Allergies Allergy/AdvReac Type Severity Reaction Status Date / Time metoclopramide [From Reglan] Allergy Severe Tremors Verified 05/29/20 17:30 Penicillins Allergy Severe Cannot Verified 05/29/20 17:30 Remember pseudoephedrine Allergy Severe Other Verified 05/29/20 17:30 Home Meds: Home Meds Cyclobenzaprine [Flexeril] 10 mg PO BID PRN 04/20/20 [History] Ondansetron [Zofran ODT] 8 mg SL ASDIRECTED PRN 04/20/20 [History] Cefdinir [Omnicef] 300 mg PO BID 7 Days #14 cap 05/29/20 [Rx] Dicyclomine [Bentyl] 20 mg PO ASDIRECTED 05/29/20 [History] Enoxaparin [Lovenox] 1 syringe SUBCUT BID 05/29/20 [History] Escitalopram [Lexapro] 10 mg PO ASDIRECTED 05/29/20 [History] HYDROmorphone [Dilaudid] 1.5 tab PO Q2HR PRN 05/29/20 [History] LORazepam [Ativan] 0.5 mg PO ASDIRECTED 05/29/20 [History] Loperamide [Imodium] 2 mg PO ASDIRECTED 05/29/20 [History] Melatonin 5 mg PO ASDIRECTED 05/29/20 [History] Promethazine [Phenergan] 25 mg TOP ASDIRECTED PRN 05/29/20 [History] dexAMETHasone [Decadron] 8 mg PO ASDIRECTED 05/29/20 [History] fentaNYL [Duragesic] 25 mcg TD Q72H 05/29/20 [History] Past Medical History Other Cardiovascular History: 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-getting lovenox shots Gastrointestinal History: Reports: GERD, Other (See Below) Other Gastrointestinal History: umbilical hernia Musculoskeletal History: Reports: Fracture Endocrine/Metabolic History: Reports: Obesity/BMI 30+ Oncologic (Cancer) History: Reports: Metastatic (thought to be adenocarcinoma; source unspecified), Other (See Below) Other Oncologic History: lymph node of abdominal wall - Past Surgical History HEENT Surgical History: Reports: Adenoidectomy, Tonsillectomy Other Oncologic Surgeries/Procedures: reports GI cancer Social & Family History - Family History Family Medical History: No Pertinent Family History - Tobacco Use Tobacco Use Status *Q: Former Tobacco User Used Tobacco, but Quit: Yes Month/Year Tobacco Last Used: 2019 - Caffeine Use Caffeine Use: Reports: Coffee, Energy Drinks, Soda, Tea - Recreational Drug Use Recreational Drug Use: No - Living Situation & Occupation Living situation: Reports: , with Spouse Occupation: Employed ED ROS GENERAL - Review of Systems Review Of Systems: Comprehensive ROS is negative, except as noted in HPI. ED EXAM, SKIN/RASH Exam: See Below Exam Limited By: No Limitations General Appearance: Alert, WD/WN, No Apparent Distress Respiratory/Chest: No Respiratory Distress, Lungs Clear, Normal Breath Sounds, No Accessory Muscle Use, Chest Non-Tender Cardiovascular: Normal Peripheral Pulses, Regular Rate, Rhythm, No Edema Peripheral Pulses: 2+: Radial (L), Radial (R) GI/Abdominal: Normal Bowel Sounds, Soft, Non-Tender, No Distention, No Mass, Other (multiple ecchymotic lesions to abdomen wall, but no tenderness/warmth) Extremities: Normal Capillary Refill, Increased Warmth (to left upper lateral arm), Redness (to Left upper lateral arm) Neurological: Alert, Oriented, Normal Cognition, No Motor/Sensory Deficits Psychiatric: Normal Affect, Normal Mood Skin: Warm, Dry, Intact, No Rash, Erythema (to Left upper lateral arm) Course - Vital Signs Last Recorded V/S: Last Vital Signs Temp 96.9 F 05/29/20 15:23 Pulse 100 05/29/20 15:23 Resp 16 05/29/20 15:23 BP 156/108 H 05/29/20 15:23 Pulse Ox 98 05/29/20 15:23 - Orders/Labs/Meds Orders: Active Orders 24 hr Category Date Time Status CULTURE BLOOD [BC] Stat Lab 05/29/20 16:11 Ordered CULTURE BLOOD [BC] Stat Lab 05/29/20 16:11 Ordered OCCULT BLOOD DIAGNOSTIC [OP] Routine Lab 05/29/20 16:55 Received Blood Culture x2 Reflex Set [OM.PC] Stat Oth 05/29/20 16:11 Ordered Labs: Laboratory Tests 05/29/20 05/29/20 05/29/20 Range/Units 16:19 16:19 16:20 WBC 2.66 L (4.23-9.07) K/mm3 RBC 5.06 (4.63-6.08) M/mm3 Hgb 13.2 L D (13.7-17.5) gm/dl Hct 41.5 (40.1-51.0) % MCV 82.0 (79.0-92.2) fl MCH 26.1 (25.7-32.2) pg MCHC 31.8 L (32.2-35.5) g/dl RDW Std Deviation 45.5 H (35.1-43.9) fL Plt Count 109 L D (163-337) K/mm3 MPV 12.6 H (9.4-12.3) fl Neutrophils % (Manual) 46 (40-60) % Band Neutrophils % 3 (0-10) % Lymphocytes % (Manual) 39 (20-40) % Atypical Lymphs % 0 % Monocytes % (Manual) 11 H (2-10) % Eosinophils % (Manual) 1 (0.8-7.0) % Basophils % (Manual) 0 L (0.2-1.2) Platelet Estimate Decreased Plt Morphology Comment See note RBC Morph Comment Normal Sodium 140 (136-145) mEq/L Potassium 4.0 (3.5-5.1) mEq/L Chloride 102 (98-107) mEq/L Carbon Dioxide 27 (21-32) mEq/L Anion Gap 15.0 (5-15) BUN 11 (7-18) mg/dL Creatinine 0.7 (0.7-1.3) mg/dL Est Cr Clr Drug Dosing 163.67 mL/min Estimated GFR (MDRD) > 60 (>60) mL/min BUN/Creatinine Ratio 15.7 (14-18) Glucose 86 (74-106) mg/dL Calcium 9.1 (8.5-10.1) mg/dL Total Bilirubin 0.7 (0.2-1.0) mg/dL AST 114 H (15-37) U/L ALT 216 H (16-63) U/L Alkaline Phosphatase 145 H (46-116) U/L C-Reactive Protein 4.0 H* (<1.0) mg/dL Total Protein 6.7 (6.4-8.2) g/dl Albumin 3.1 L (3.4-5.0) g/dl Globulin 3.6 gm/dL Albumin/Globulin Ratio 0.9 L (1-2) MRSA (PCR) Negative Meds: Medications Discontinued Medications Generic Name Dose Route Start Last Admin Trade Name Freq PRN Reason Stop Dose Admin Hydromorphone HCl 1 mg 05/29/20 17:09 05/29/20 17:16 Dilaudid IVPUSH 05/29/20 17:10 1 mg ONETIME ONE Administration Ceftriaxone Sodium 2 gm/ 100 mls @ 200 mls/hr 05/29/20 16:04 05/29/20 16:23 Sodium Chloride IV 05/29/20 16:33 200 mls/hr ONETIME ONE Administration Metoclopramide HCl 10 mg 05/29/20 17:09 05/29/20 17:18 Reglan IVPUSH 05/29/20 17:10 Not Given ONETIME ONE Ondansetron HCl 4 mg 05/29/20 17:19 05/29/20 17:23 Zofran IVPUSH 05/29/20 17:20 4 mg ONETIME ONE Administration - Re-Assessments/Exams Free Text/Narrative Re-Assessment/Exam: 05/29/20 16:09 Patient presents to the ED for a red and warm upper arm. Basic labs will be obtained along with a set of cultures from the PICC line, MRSA swab by PCR, I did have Dr. Caballero evaluate his arm pain he does think that this is an early cellulitis. He does suggest trying 2 g Rocephin in the ER. 05/29/20 18:15 Patient does have a decreased white count but again he is going through chemo. He did get the 2 g Rocephin in the ER, and tolerated this well however he had some nausea and pain while being in the ER he was given 1 mg Dilaudid and some Zofran for ongoing management. Patient's MRSA swab is negative. We will get the patient home with Omnicef twice daily for the next 7 days for suspected cellulitis and have him follow-up with his provider on Monday. Departure - Departure Time of Disposition: 18:16 Disposition: Home, Self-Care 01 Condition: Good Clinical Impression: Cellulitis of upper extremity Qualifiers: Laterality: left Qualified Code(s): L03.114 - Cellulitis of left upper limb - Discharge Information *PRESCRIPTION DRUG MONITORING PROGRAM REVIEWED*: No *COPY OF PRESCRIPTION DRUG MONITORING REPORT IN PATIENT SIMONE: No Prescriptions: Cefdinir [Omnicef] 300 mg PO BID 7 Days #14 cap Instructions: Cellulitis, Adult, [id number] Referrals: Narayan Robles NP [Primary Care Provider] - Forms: ED Department Discharge Additional Instructions: You were evaluated in the ER today regarding a suspected skin infection. It does appear that you have a cellulitis. You were given an antibiotic, Omnicef 1 tablet 2 times a day, please take as prescribed until the course is done or told otherwise by different provider. Please note that this antibiotic will take at least 48 hours to start working appropriately. You were given a dose of IV Rocephin in the ER, for the suspected cellulitis. The antibiotic was electronically prescribed to [facility], you will need to go there tomorrow between the hours of 9 AM to 12 PM, to obtain the medication and take as directed as they were only open during this timeframe tomorrow. You may try to use heat/ice packs to the area to help reduce pain/swelling. Please continue all other medications as previously prescribed by your regular doctor. Recommend you follow-up with your oncologist/primary care physician on Monday, to make sure that your symptoms are getting better as expected. Please return to the ER at any time if your symptoms change or worsen. Sepsis Event Note (ED) - Evaluation Sepsis Screening Result: No Definite Risk - Focused Exam Vital Signs: Vital Signs Temp Pulse Resp BP Pulse Ox 05/29/20 15:23 96.9 F 100 16 156/108 H 98 - My Orders Last 24 Hours: My Active Orders 05/29/20 16:11 CULTURE BLOOD [BC] Stat CULTURE BLOOD [BC] Stat Blood Culture x2 Reflex Set [OM.PC] Stat - Assessment/Plan Last 24 Hours: My Active Orders 05/29/20 16:11 CULTURE BLOOD [BC] Stat CULTURE BLOOD [BC] Stat Blood Culture x2 Reflex Set [OM.PC] Stat
[2020-05-29] MEDS ORDERED: HYDROmorphone 1 MG/ML Syringe IVPUSH ONE (17:09)
[2020-05-29] MEDS ORDERED: Metoclopramide 10 MG/2 ML SDV IVPUSH ONE (17:09)
[2020-05-29] MEDS ORDERED: Ondansetron 4 MG/2 ML SDV IVPUSH ONE (17:19)
== END 2020-05-29 18:35 | disposition home or self-care (01) ==
LOC: JD.ED 14:56
DX: L03.114 Cellulitis of left upper limb (principal); E66.9 Obesity, unspecified; Z68.38 Body mass index [BMI] 38.0-38.9, adult; Z87.891 Personal history of nicotine dependence
CPT/HCPCS: 36415; 80053; 82272; 85007; 85027; 86140; 87040; 87641; 96365; 96375; 99283; J0696; J1170; J2405; 99284

== ENCOUNTER 2020-06-04 16:20 | Emergency (ER) | payer BC ==
[2020-06-04 16:31] VITALS: BP 127/96; PULSE 123
[2020-06-04] MEDS ORDERED: HYDROmorphone 1 MG/ML Syringe IVPUSH ONE ×2 (16:57→18:20)
--- NOTE | 2020-06-04 16:59 | EDM.PDOC ---
ED HPI GENERAL MEDICAL PROBLEM - General Chief Complaint: Respiratory Problem Stated Complaint: SOB/FLUID ON LUNGS Time Seen by Provider: 06/04/20 16:30 Source of Information: Reports: Patient, Family (Other) History Limitations: Reports: Other (And is very fatigued tired looking.) - History of Present Illness INITIAL COMMENTS - FREE TEXT/NARRATIVE: 29-year-old male patient presents to the ED at the request of Dr. Hollins, surgeon at [facility]. Apparently Nakia Fleming had a CT scan of his chest abdomen pelvis done yesterday through the [facility] and was identified to have bilateral pleural effusions taking up about 25% of both lung lopez slightly worse on the left side as compared to the right. He had phoned into the clinic later in the day and felt that he could not make it until tomorrow to get to [place] where plan thoracentesis has been arranged. Therefore Dr. Lopez gave me a call and the patient and advised him to come to the ED where I would perform thoracentesis for the patient. However once he came to the emergency room with his mother they asked if interventional radiology would become involved for the procedure. Apparently this is what is done in [place]. I advised them that we are critical care access hospital and do not have access to interventional radiology services. I offered my services since I have done thoracentesis on a multitude of occasions over the last 40 years. However they felt uncomfortable without interventional radiology availability. I did discuss this with Dr. Sanchez--and he agreed he does not have access to interventional radiology either and that they perhaps would be better served by going to [facility] if he is finding the difficulty breathing intolerable. Looking at his CT it does not appear to be severe at this point time. He does have an associated diffuse ascites but not an overabundance of ascites that would benefit from paracentesis of the abdomen. During his stay in the emergency room he asked for some medication for pain relief. He was therefore given Dilaudid 1 mg IV through his PICC line. While we were sorting out whether or not they were going to [facility] or wait to tomorrow morning the patient felt markedly improved from the Dilaudid IV and was finally able to get a little bit asleep even in the ER on the [facility] . The patient felt that this was the first time he gotten good enough pain relief that he could finally sleep for a period of time in spite of being on fentanyl patch 25 mcg/h. The made a conscious decision due to the weather being bad as it is -18 below 0 with 38 below windshield that they would travel to [place] during the daylight hours tomorrow for proposed interventional radiology services. Onset: Gradual Onset Date: 05/31/20 (X-ray done 5 degrees ago did not show any evidence of pleural effusions.) Duration: Day(s):, Getting Worse Location: Reports: Chest (Identified bilateral pleural effusions on CT scan of the chest abdomen pelvis done yesterday. 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 He is currently receiving chemotherapy on a weekly basis.) Quality: Reports: Other (Pain with breathing and dyspnea.) Severity: Moderate Improves with: Reports: None Worsens with: Reports: Other (Not lay flat due to dyspnea.) Context: Denies: Activity, Exercise, Lifting, Sick Contact, Trauma, Other Associated Symptoms: Reports: Cough, Loss of Appetite, Malaise (Nonproductive), Nausea/Vomiting (Nausea and still spitting up), Shortness of Breath, Weakness (Severe and generalized.). Denies: Confusion, Chest Pain, cough w sputum, Diaphoresis, Fever/Chills, Headaches, Rash ( combination of saliva and gastric content), Seizure, Syncope Treatments FOOD ORDER DELIVERY RUNNER: Denies: Acetaminophen Chest Pain Score (Numeric/FACES): 10 - Related Data Allergies Allergy/AdvReac Type Severity Reaction Status Date / Time metoclopramide [From Reglan] Allergy Severe Tremors Verified 05/29/20 17:30 Penicillins Allergy Severe Cannot Verified 05/29/20 17:30 Remember pseudoephedrine Allergy Severe Other Verified 05/29/20 17:30 Home Meds: Home Meds Cyclobenzaprine [Flexeril] 10 mg PO BID PRN 04/20/20 [History] Ondansetron [Zofran ODT] 8 mg SL ASDIRECTED PRN 04/20/20 [History] Cefdinir [Omnicef] 300 mg PO BID 7 Days #14 cap 05/29/20 [Rx] Dicyclomine [Bentyl] 20 mg PO ASDIRECTED 05/29/20 [History] Enoxaparin [Lovenox] 1 syringe SUBCUT BID 05/29/20 [History] Escitalopram [Lexapro] 10 mg PO ASDIRECTED 05/29/20 [History] HYDROmorphone [Dilaudid] 1.5 tab PO Q2HR PRN 05/29/20 [History] LORazepam [Ativan] 0.5 mg PO ASDIRECTED 05/29/20 [History] Loperamide [Imodium] 2 mg PO ASDIRECTED 05/29/20 [History] Melatonin 5 mg PO ASDIRECTED 05/29/20 [History] Promethazine [Phenergan] 25 mg TOP ASDIRECTED PRN 05/29/20 [History] dexAMETHasone [Decadron] 8 mg PO ASDIRECTED 05/29/20 [History] fentaNYL [Duragesic] 25 mcg TD Q72H 05/29/20 [History] Past Medical History Other Cardiovascular History: 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-getting lovenox shots Gastrointestinal History: Reports: GERD, Other (See Below) Other Gastrointestinal History: umbilical hernia Musculoskeletal History: Reports: Fracture Endocrine/Metabolic History: Reports: Obesity/BMI 30+ Oncologic (Cancer) History: Reports: Metastatic, Other (See Below) Other Oncologic History: lymph node of abdominal wall - Past Surgical History HEENT Surgical History: Reports: Adenoidectomy, Tonsillectomy Other Oncologic Surgeries/Procedures: reports GI cancer Social & Family History - Family History Family Medical History: No Pertinent Family History - Tobacco Use Tobacco Use Status *Q: Never Tobacco User - Caffeine Use Caffeine Use: Reports: Soda - Recreational Drug Use Recreational Drug Type: Reports: Marijuana/Hashish Other Recreational Drug Type: medical card - Living Situation & Occupation Living situation: Reports: , with Spouse Occupation: Employed [employer] [facility] [facility] GENER[facility] - Review of Systems Review Of Systems: See Below Constitutional: Reports: Malaise, Weakness, Fatigue, Decreased Appetite, Weight Loss. Denies: Fever, Chills HEENT: Reports: Other Respiratory: Reports: Shortness of Breath, Cough, Other. Denies: Wheezing (Right mouth), Pleuritic Chest Pain, Sputum, Hemoptysis (Nonproductive cough) Cardiovascular: Reports: Dyspnea on Exertion ( both lower extremities with associated ascites), Edema (Occasionally), Lightheadedness. Denies: Chest Pain, Blood Pressure Problem, Claudication, Orthopnea Endocrine: Reports: Fatigue GI/Abdominal: Reports: Abdominal Pain (Persistent diffuse abdominal pain due to invasion of the peritoneum and omentum with adenocarcinoma of unclear etiology.), Diarrhea, Nausea (Postchemotherapy usually large-volume diarrhea stools yellow in color 3-4 times daily). Denies: Distension, Flatus, Hematemesis, Hematochezia, Melena, Vomiting : Reports: No Symptoms Musculoskeletal: Reports: Back Pain Skin: Reports: Bruising (Bruises easily.) Neurological: Reports: Dizziness Psychiatric: Reports: No Symptoms Hematologic/Lymphatic: Reports: No Symptoms Immunologic: Reports: No Symptoms ED EXAM, GENERAL - Physical Exam Exam: See Below Exam Limited By: No Limitations General Appearance: Alert, WD/WN, Moderate Distress, Other (Patient appears quite ill. He continues to have a very pallid appearance to his skin. He appears fatigued and tired. Temperature was 37.7 degrees by nursing staff heart rate was 123 at the bedside respiratory of 20 O2 sats of 92% room air BP 127/96.) Eye Exam: Bilateral Eye: Normal Inspection (He does have some mild scleral icterus as well as lateral pallor.) Throat/Mouth: Other (Tongue is mildly dry and coated) Head: Normocephalic Neck: Normal Inspection, Supple, Non-Tender, Full Range of Motion. No: Lymphadenopathy (L), Lymphadenopathy (R) Respiratory/Chest: Respiratory Distress, Decreased Breath Sounds (Mild tachypnea. Wheeze breath sounds to both posterior lung lopez.) Cardiovascular: Normal Peripheral Pulses, No Edema, No Gallop, No Murmur, No Rub (Cardiac arrest.), Tachycardia Course - Vital Signs Last Recorded V/S: Last Vital Signs Temp 37.7 C 06/04/20 16:28 Pulse 123 H 06/04/20 16:28 Resp 20 06/04/20 16:28 BP 127/96 H 06/04/20 16:28 Pulse Ox 91 L 06/04/20 16:28 - Orders/Labs/Meds Meds: Medications Discontinued Medications Generic Name Dose Route Start Last Admin Trade Name Freq PRN Reason Stop Dose Admin Hydromorphone HCl 1 mg 06/04/20 16:57 06/04/20 17:10 Dilaudid IVPUSH 06/04/20 16:58 1 mg ONETIME ONE Administration Hydromorphone HCl 1 mg 06/04/20 18:20 06/04/20 18:29 Dilaudid IVPUSH 06/04/20 18:21 1 mg ONETIME ONE Administration - Radiology Interpretation Free Text/Narrative:: 29-year-old male who has known to have advanced carcinomatosis of the abdomen i nvolving the peritoneum and the omentum diagnosed April [address] exam. Subsequent biopsies done in [place] revealed it to be an adenocarcinoma but no clear etiology. Upper EGD D exam did not reveal any obvious source of pathology. A colonoscopy was done as part of his staging process but unfortunately was limited by retention of stool in the colon but no obvious tumors were identified within the colon. Subsequently oncologist have been treating him with a combination of chemotherapeutic agents aimed at primarily colon cancer as the likely primary. He came to the ED today at the request of Dr. Lopez after the fall in the office late in the day suggesting that he was so short of breath that he required a thoracentesis. When the patient and the mother came to the ED they were expecting to be met by an interventional radiologist to perform the procedure. Of course this service is not available in our [facility]. I perform thoracentesis on a fairly regular basis through the ER but they did not feel comfortable without interventional radiology services being available. I therefore indicated that they would have to travel to [place] for this service to be available and they have plans to attend the hospital there tomorrow for this procedure be done. Patient is having a good deal of pain while in the department and was therefore given Dilaudid 1 mg IV through his PICC line and he found that this relieved a good portion of his abdominal and thoracic pain to the point that he was able to fall asleep for period of time. While we ironed out the difficulties and decision whether to travel to [place] tonight patient felt that he had gotten satisfactory pain relief with the Dilaudid and requested a second dose so that he might get some sleep tonight as he has not slept well for the last 3-4 nights.. They will travel to [place] tomorrow for planned interventional radiology thoracentesis procedure. He was given a dose of Dilaudid 1 mg IV thro ugh his PICC line at the time of discharge which was about an hour apart from the initial dosage. Departure - Departure Time of Disposition: 18:03 Disposition: Home, Self-Care 01 Condition: Serious Clinical Impression: Bilateral pleural effusion, Ascites, malignant, Adenocarcinoma carcinomatosis - Discharge Information *PRESCRIPTION DRUG MONITORING PROGRAM REVIEWED*: Not Applicable *COPY OF PRESCRIPTION DRUG MONITORING REPORT IN PATIENT SIMONE: Not Applicable Instructions: Pleural Effusion Referrals: Narayan Robles NP [Primary Care Provider] - Forms: ED Department Discharge Additional Instructions: Evaluation in the emergency room today in regards to possible thoracentesis to r emove fluid from your lung. You were under the impression that we had the availability of interventional radiology to perform this procedure. Unfortunately that is not the case. We are a critical care access hospital with only 25 beds and no specialist other than surgeons that work primarily at [facility] here in [place]. We do have a hospital surgeon who works party plan demonstrator and an orthopedic surgeon or bone surgeon that works for [employer] but happens to live here in [place] and takes call 10 days a month. Other that we have no specialized services. It is therefore my opinion that he would be best served by traveling to [place] tomorrow as planned where interventional radiology is certainly available at [facility] in [place]. You did receive Dilaudid 1 mg intravenously through your PICC line for pain relief while in the emergency department tonight. Continue all medications at home as previously prescribed. Sepsis Event Note (ED) - Evaluation Sepsis Screening Result: No Definite Risk - Focused Exam Vital Signs: Vital Signs Temp Pulse Resp BP Pulse Ox 06/04/20 16:28 37.7 C 123 H 20 127/96 H 91 L
== END 2020-06-04 18:55 | disposition home or self-care (01) ==
LOC: JD.ED 16:20
DX: J90 Pleural effusion, not elsewhere classified (principal); R18.0 Malignant ascites; C80.0 Disseminated malignant neoplasm, unspecified; E66.9 Obesity, unspecified; Z68.38 Body mass index [BMI] 38.0-38.9, adult; Z88.8 Allergy status to other drugs, medicaments and biological substances; Z88.0 Allergy status to penicillin; Z79.01 Long term (current) use of anticoagulants; Z79.899 Other long term (current) drug therapy
CPT/HCPCS: 96374; 96376; 99283; J1170; 99284

== ENCOUNTER 2020-06-30 14:17 | Emergency (ER) | payer BC ==
[2020-06-30] MEDS ORDERED: Sodium Chloride 0.9% 10 ML Syringe FLUSH PRN (14:57)
[2020-06-30] MEDS ORDERED: HYDROmorphone 1 MG/ML Syringe IVPUSH ONE ×2 (14:57→17:33)
[2020-06-30] MEDS ORDERED: Lactated Ringers 1,000 ML IV ONE (14:59)
--- NOTE | 2020-06-30 15:37 | CR ---
Chest: Portable view of the chest was obtained. Comparison: Prior portable chest x-ray of 05/24/20. Left-sided PICC line is seen. Tip lies in satisfactory position near the right atrial and superior vena cava junction. Lungs are clear with no acute parenchymal change. Heart size and mediastinum are normal. No acute osseous finding is appreciated. Impression: 1. Left-sided PICC line satisfactory in position. 2. Nothing acute is seen on portable chest x-ray. Diagnostic code #2
[2020-06-30] MEDS ORDERED: Potassium Chloride 10 MEQ in Premix Bag 1 BAG IV ONE ×2 (16:06→17:43)
--- NOTE | 2020-06-30 17:11 | EDM.PDOC ---
ED HPI GENERAL MEDICAL PROBLEM - General Chief Complaint: Abdominal Pain Stated Complaint: [facility] Time Seen by Provider: 06/30/20 14:44 Source of Information: Reports: Patient, Family (spouse), RN Notes Reviewed - History of Present Illness INITIAL COMMENTS - FREE TEXT/NARRATIVE: 29 yr old male comes in with N/vomiting, generalized weakness, diarrhea. He has hx of cancer diagnosed about 3 1/2 months ago. 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 He has had very poor appetite. It is about 2 1/2 weeks since his last chemo. which was "round 3" He states the first 2 rounds of chemo were not too bad but this last one has really made him ill. He has had ascites and has also had what he describes as prior pleral effusion drained by IR. He has an appointment tomorrow morning in [place] to see IR for "further drainage". Abdominal Pain Score (Numeric/FACES): 3 - Related Data Allergies Allergy/AdvReac Type Severity Reaction Status Date / Time metoclopramide [From Reglan] Allergy Severe Tremors Verified 06/30/20 14:18 Penicillins Allergy Severe Cannot Verified 06/30/20 14:18 Remember pseudoephedrine Allergy Severe Other Verified 06/30/20 14:18 Home Meds: Home Meds Cyclobenzaprine [Flexeril] 10 mg PO BID PRN 04/20/20 [History] Ondansetron [Zofran ODT] 8 mg SL ASDIRECTED PRN 04/20/20 [History] Cefdinir [Omnicef] 300 mg PO BID 7 Days #14 cap 05/29/20 [Rx] Dicyclomine [Bentyl] 20 mg PO ASDIRECTED 05/29/20 [History] Enoxaparin [Lovenox] 1 syringe SUBCUT BID 05/29/20 [History] Escitalopram [Lexapro] 10 mg PO ASDIRECTED 05/29/20 [History] HYDROmorphone [Dilaudid] 1.5 tab PO Q2HR PRN 05/29/20 [History] LORazepam [Ativan] 0.5 mg PO ASDIRECTED 05/29/20 [History] Loperamide [Imodium] 2 mg PO ASDIRECTED 05/29/20 [History] Melatonin 5 mg PO ASDIRECTED 05/29/20 [History] Promethazine [Phenergan] 25 mg TOP ASDIRECTED PRN 05/29/20 [History] dexAMETHasone [Decadron] 8 mg PO ASDIRECTED 05/29/20 [History] fentaNYL [Duragesic] 25 mcg TD Q72H 05/29/20 [History] Past Medical History Other Cardiovascular History: 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-getting lovenox shots Gastrointestinal History: Reports: GERD, Other (See Below) Other Gastrointestinal History: umbilical hernia Musculoskeletal History: Reports: Fracture Endocrine/Metabolic History: Reports: Obesity/BMI 30+ Oncologic (Cancer) History: Reports: Metastatic, Other (See Below) Other Oncologic History: lymph node of abdominal wall - Past Surgical History HEENT Surgical History: Reports: Adenoidectomy, Tonsillectomy Other Oncologic Surgeries/Procedures: reports GI cancer Social & Family History - Family History Family Medical History: No Pertinent Family History - Tobacco Use Tobacco Use Status *Q: Unknown Ever Used Tobacco - Caffeine Use Caffeine Use: Reports: Soda - Living Situation & Occupation Living situation: Reports: , with Spouse Occupation: Employed ED ROS GENERAL - Review of Systems Review Of Systems: See Below Constitutional: Denies: Fever, Chills HEENT: Denies: Throat Pain Respiratory: Reports: Shortness of Breath (mild). Denies: Cough Cardiovascular: Denies: Chest Pain GI/Abdominal: Reports: Diarrhea, Nausea, Vomiting. Denies: Abdominal Pain Skin: Denies: Rash Neurological: Reports: Dizziness, Weakness (generalized) ED EXAM, GENERAL - Physical Exam Exam: See Below General Appearance: Alert, Mild Distress, Cachetic Throat/Mouth: Other (oral mucosa mildly dry) Head: Atraumatic Neck: Supple Respiratory/Chest: No Respiratory Distress, Lungs Clear, Normal Breath Sounds Cardiovascular: Regular Rate, Rhythm GI/Abdominal: Soft, Tender (moderate diffuse tenderness, extensive bruising R abd (from lovenox injections)) Back Exam: No: CVA Tenderness (L), CVA Tenderness (R) Extremities: No: Pedal Edema, Leg Pain, Redness Neurological: Alert, Oriented, No Motor/Sensory Deficits Skin Exam: Warm, Dry, Pallor Course - Vital Signs Last Recorded V/S: Last Vital Signs Temp 97.4 F 06/30/20 16:18 Pulse 99 06/30/20 16:18 Resp 18 06/30/20 16:18 BP 131/92 H 06/30/20 16:18 Pulse Ox 95 06/30/20 16:18 - Orders/Labs/Meds Orders: Active Orders 24 hr Category Date Time Status Peripheral IV Care [RC] . DIRECTED Care 06/30/20 14:59 Active Sodium Chloride 0.9% [Saline Flush] Med 06/30/20 14:57 Active 10 ml FLUSH ASDIRECTED PRN Peripheral IV Insertion Adult [OM.PC] Stat Oth 06/30/20 14:57 Ordered Labs: Laboratory Tests 06/30/20 06/30/20 06/30/20 Range/Units 15:18 15:18 15:18 WBC 18.82 H (4.23-9.07) K/mm3 RBC 4.16 L (4.63-6.08) M/mm3 Hgb 10.9 L D (13.7-17.5) gm/dl Hct 34.1 L (40.1-51.0) % MCV 82.0 (79.0-92.2) fl MCH 26.2 (25.7-32.2) pg MCHC 32.0 L (32.2-35.5) g/dl RDW Std Deviation 54.9 H (35.1-43.9) fL Plt Count 140 L (163-337) K/mm3 MPV 11.7 (9.4-12.3) fl Neut % (Auto) 80.3 H (34.0-67.9) % Lymph % (Auto) 5.5 L (21.8-53.1) % Blanco % (Auto) 7.7 (5.3-12.2) % Eos % (Auto) 0 L (0.8-7.0) Baso % (Auto) 0.5 (0.1-1.2) % Neut # (Auto) 15.13 H (1.78-5.38) K/mm3 Lymph # (Auto) 1.04 L (1.32-3.57) K/mm3 Blanco # (Auto) 1.44 H (0.30-0.82) K/mm3 Eos # (Auto) 0.00 L (0.04-0.54) K/mm3 Baso # (Auto) 0.09 H (0.01-0.08) K/mm3 Manual Slide Review Abnormal smear Sodium 139 (136-145) mEq/L Potassium 3.0 L (3.5-5.1) mEq/L Chloride 97 L (98-107) mEq/L Carbon Dioxide 30 (21-32) mEq/L Anion Gap 15.0 (5-15) BUN 12 (7-18) mg/dL Creatinine 0.5 L (0.7-1.3) mg/dL Est Cr Clr Drug Dosing 229.14 mL/min Estimated GFR (MDRD) > 60 (>60) mL/min BUN/Creatinine Ratio 24.0 H (14-18) Glucose 84 (74-106) mg/dL Calcium 8.7 (8.5-10.1) mg/dL Magnesium (1.8-2.4) mg/dl Total Bilirubin 0.7 (0.2-1.0) mg/dL AST 44 H (15-37) U/L ALT 29 (16-63) U/L Alkaline Phosphatase 127 H (46-116) U/L NT-Pro-B Natriuret Pep 399 H (0-125) pg/mL Total Protein 6.0 L (6.4-8.2) g/dl Albumin 2.4 L (3.4-5.0) g/dl Globulin 3.6 gm/dL Albumin/Globulin Ratio 0.7 L (1-2) Lipase 289 (73-393) U/L 06/30/20 Range/Units 15:18 WBC (4.23-9.07) K/mm3 RBC (4.63-6.08) M/mm3 Hgb (13.7-17.5) gm/dl Hct (40.1-51.0) % MCV (79.0-92.2) fl MCH (25.7-32.2) pg MCHC (32.2-35.5) g/dl RDW Std Deviation (35.1-43.9) fL Plt Count (163-337) K/mm3 MPV (9.4-12.3) fl Neut % (Auto) (34.0-67.9) % Lymph % (Auto) (21.8-53.1) % Blanco % (Auto) (5.3-12.2) % Eos % (Auto) (0.8-7.0) Baso % (Auto) (0.1-1.2) % Neut # (Auto) (1.78-5.38) K/mm3 Lymph # (Auto) (1.32-3.57) K/mm3 Blanco # (Auto) (0.30-0.82) K/mm3 Eos # (Auto) (0.04-0.54) K/mm3 Baso # (Auto) (0.01-0.08) K/mm3 Manual Slide Review Sodium (136-145) mEq/L Potassium (3.5-5.1) mEq/L Chloride (98-107) mEq/L Carbon Dioxide (21-32) mEq/L Anion Gap (5-15) BUN (7-18) mg/dL Creatinine (0.7-1.3) mg/dL Est Cr Clr Drug Dosing mL/min Estimated GFR (MDRD) (>60) mL/min BUN/Creatinine Ratio (14-18) Glucose (74-106) mg/dL Calcium (8.5-10.1) mg/dL Magnesium 2.0 (1.8-2.4) mg/dl Total Bilirubin (0.2-1.0) mg/dL AST (15-37) U/L ALT (16-63) U/L Alkaline Phosphatase (46-116) U/L NT-Pro-B Natriuret Pep (0-125) pg/mL Total Protein (6.4-8.2) g/dl Albumin (3.4-5.0) g/dl Globulin gm/dL Albumin/Globulin Ratio (1-2) Lipase (73-393) U/L - Re-Assessments/Exams Free Text/Narrative Re-Assessment/Exam: 06/30/20 17:37 WBC 18,800, hgb 10.9, K+ 3.0, anion gap 15. AST 44, ALT nl, Alk phos 127, BNP 399. 06/30/20 19:10. 2nd bag of IV potassium is close to done. He has been given 1 liter of NS plus the extra fluid with 2 bags 10 meq potassium IV. He has had 2 mg dilaudid IV while here in the ED. He has a lot of opiates on board with his long acting morphine, fentanyl patch and the 1 mg dilaudid IV en route by ambulance 5 hrs ago plus what we have given IV while here in the ED. Departure - Departure Time of Disposition: 19:06 Disposition: Home, Self-Care 01 Condition: Fair Clinical Impression: Vomiting, Dehydration, Peritoneal carcinoma, Hypokalemia - Discharge Information Referrals: Narayan Robles, CLEARING DISTRIBUTION CLERK [Primary Care Provider] - Forms: ED Department Discharge Additional Instructions: Zofran as previously prescribed if needed for further nausea or vomiting. See IR tomorrow AM in [place] as planned. Consider going to [facility] tomorrow if you do not feel well enough to continue at home. Return to our ED as needed. Sepsis Event Note (ED) - Evaluation Sepsis Screening Result: No Definite Risk - Focused Exam Vital Signs: Vital Signs Temp Pulse Resp BP Pulse Ox 06/30/20 16:18 97.4 F 99 18 131/92 H 95 06/30/20 14:19 96.7 F L 107 H 16 135/97 H 95 - My Orders Last 24 Hours: My Active Orders 06/30/20 14:57 Sodium Chloride 0.9% [Saline Flush] 10 ml FLUSH ASDIRECTED PRN Peripheral IV Insertion Adult [OM.PC] Stat 06/30/20 14:59 Peripheral IV Care [RC] . DIRECTED - Assessment/Plan Last 24 Hours: My Active Orders 06/30/20 14:57 Sodium Chloride 0.9% [Saline Flush] 10 ml FLUSH ASDIRECTED PRN Peripheral IV Insertion Adult [OM.PC] Stat 06/30/20 14:59 Peripheral IV Care [RC] . DIRECTED
[2020-06-30] MEDS ORDERED: Potassium Chloride 100 ML ONE (17:44)
[2020-06-30 19:42] VITALS: BP 134/96; PULSE 95
== END 2020-06-30 19:30 | disposition home or self-care (01) ==
LOC: SUPCPDRO 14:17 → JD.ED 14:17
DX: E86.0 Dehydration (principal); C48.2 Malignant neoplasm of peritoneum, unspecified; E87.6 Hypokalemia; R11.10 Vomiting, unspecified; E66.9 Obesity, unspecified; Z68.34 Body mass index [BMI] 34.0-34.9, adult; Z88.8 Allergy status to other drugs, medicaments and biological substances; Z88.0 Allergy status to penicillin; Z79.899 Other long term (current) drug therapy
CPT/HCPCS: 36415; 71045; 80053; 83690; 83735; 83880; 85025; 96365; 96366; 96375; 96376; 99285; J1170; J3480; J7120; 99284

== ENCOUNTER 2020-07-01 08:44 | Emergency (ER) | payer BC ==
[2020-07-01] MEDS ORDERED: Promethazine 25 MG in Sodium Chloride 0.9% 50 ML IV ONE (09:05)
[2020-07-01] MEDS ORDERED: HYDROmorphone 1 MG/ML Syringe IVPUSH ONE ×3 (09:05→15:12)
[2020-07-01] MEDS ORDERED: Ondansetron 4 MG/2 ML SDV IVPUSH ONE ×2 (09:08→15:11)
--- NOTE | 2020-07-01 09:10 | EDM.PDOC ---
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 Patient was diagnosed with cancer involving the abdomen primarily in the omentum with ascites on April 20, 2020. Subsequently has been receiving chemotherapy on a weekly basis for an adenocarcinoma presumably of GI or colonic origin. He presents today with acute onset of nausea vomiting and diffuse abdominal pain. He is scheduled for or paracentesis with interventional radiology services at [facility] at 11:00 this morning. Pain is primarily coming from the abdomen. He is currently on fentanyl 25 mcg patch and a 12 mcg patch at the same time to relieve his pain. Currently pain is rated as 10 out of 10 in his abdomen. Cannot take a deep breath due to limitations from pain. He reports he is still voiding. Cannot keep anything down at this point time. He estimates now that he lost about 100 pounds of weight in total. Onset: Other (Chronic abdominal pain just worse today.) Onset Date: 04/14/20 Duration: Chronic, Getting Worse Location: Reports: Chest (Feels short of breath.), Abdomen (Diffuse severe abdominal pain suspect due to invasion of the peritoneum from carcinoma. Known to have metastatic disease to his liver.) Quality: Reports: Other (This morning.) Severity: Severe (Early pain is 10/10.) Improves with: Reports: Rest Worsens with: Reports: Other Context: Denies: Activity, Exercise, Lifting, Sick Contact, Trauma, Other Associated Symptoms: Reports: Chest Pain (Occasional cough nonproductive), Cough, Loss of Appetite, Malaise, Nausea/Vomiting, Shortness of Breath, Weakness (Did once this morning after changing his fentanyl patches. Generalized severe weakness.). Denies: No Other Symptoms ( feels full in his chest.), Confusion, cough w sputum, Diaphoresis, Fever/Chills, Headaches, Rash, Seizure, Syncope Treatments BATTERY CHARGER TESTER: Reports: Other (see below) (None.) Abdomen Pain Score (Numeric/FACES): 10 - Related Data Allergies Allergy/AdvReac Type Severity Reaction Status Date / Time Penicillins Allergy Unknown Cannot Verified 07/01/20 12:26 Remember pseudoephedrine Allergy Unknown Other Verified 07/01/20 12:26 metoclopramide [From Reglan] AdvReac Intermediate Tremors Verified 07/01/20 12:26 Home Meds: Home Meds Cyclobenzaprine [Flexeril] 10 mg PO BID PRN 04/20/20 [History] Ondansetron [Zofran ODT] 8 mg SL ASDIRECTED PRN 04/20/20 [History] Dicyclomine [Bentyl] 20 mg PO ASDIRECTED 05/29/20 [History] Escitalopram [Lexapro] 10 mg PO ASDIRECTED 05/29/20 [History] HYDROmorphone [Dilaudid] 1.5 tab PO Q2HR PRN 05/29/20 [History] LORazepam [Ativan] 0.5 mg PO ASDIRECTED 05/29/20 [History] Loperamide [Imodium] 2 mg PO ASDIRECTED 05/29/20 [History] Promethazine [Phenergan] 25 mg TOP ASDIRECTED PRN 05/29/20 [History] dexAMETHasone [Decadron] 8 mg PO ASDIRECTED 05/29/20 [History] fentaNYL [Duragesic] 25 mcg TD Q72H 05/29/20 [History] Apixaban [Eliquis] 5 mg PO BID 07/01/20 [History] Cannabidiol (Cbd) Extract [CBD Oil] 1 dose PO ASDIRECTED PRN 07/01/20 [History] fentaNYL [Duragesic] 12 mcg TOP ASDIRECTED PRN 07/01/20 [History] Past Medical History Other Cardiovascular History: 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-getting lovenox shots Gastrointestinal History: Reports: GERD, Other (See Below) Other Gastrointestinal History: umbilical hernia Musculoskeletal History: Reports: Fracture Endocrine/Metabolic History: Reports: Obesity/BMI 30+ Oncologic (Cancer) History: Reports: Metastatic, Other (See Below) Other Oncologic History: lymph node of abdominal wall - Past Surgical History HEENT Surgical History: Reports: Adenoidectomy, Tonsillectomy Other Oncologic Surgeries/Procedures: reports GI cancer Social & Family History - Family History Family Medical History: No Pertinent Family History - Tobacco Use Tobacco Use Status *Q: Never Tobacco User - Caffeine Use Caffeine Use: Reports: None - Recreational Drug Use Recreational Drug Use: No - Living Situation & Occupation Living situation: Reports: , with Spouse Occupation: Employed ED ROS GENERAL - Review of Systems Review Of Systems: See Below Constitutional: Reports: Malaise, Weakness, Fatigue, Decreased Appetite, Weight Loss (Since onset of illness in April 20 he has lost approximately). Denies: Fever, Chills HEENT: Reports: No Symptoms ( 100 pounds.) Respiratory: Reports: Shortness of Breath, Cough. Denies: Wheezing, Pleuritic Chest Pain Cardiovascular: Reports: Chest Pain (Productive), Dyspnea on Exertion (Times.), Lightheadedness. Denies: Blood Pressure Problem, Claudication, Edema, Orthopnea Endocrine: Reports: Fatigue GI/Abdominal: Reports: Abdominal Pain (See history of present illness.). Denies: Constipation : Reports: No Symptoms Musculoskeletal: Reports: Back Pain Skin: Reports: Bruising (Easily. Abdominal wall is covered with bruises from injections.) Neurological: Reports: No Symptoms Psychiatric: Reports: No Symptoms Hematologic/Lymphatic: Reports: No Symptoms Immunologic: Reports: No Symptoms ED EXAM, GI/ABD - Physical Exam Exam: See Below Exam Limited By: No Limitations General Appearance: Alert, WD/WN, Severe Distress, Other (Pallid and cool to touch. Mildly diaphoretic) Eyes: Bilateral: Normal Appearance (Mild blepharal pallor. No scleral icterus.) Throat/Mouth: Other (Is moist today.) Neck: Normal Inspection, Supple, Non-Tender, Full Range of Motion. No: Lymphadenopathy (L), Lymphadenopathy (R) Respiratory/Chest: No Respiratory Distress, Lungs Clear, Normal Breath Sounds, No Accessory Muscle Use, Respiratory Distress (Shallow breathing.) Cardiovascular: Regular Rate, Rhythm, No Edema, No Gallop, No Murmur, No Rub GI/Abdominal Exam: Normal Bowel Sounds, Soft, Tender (Normalized tenderness throughout the entire abdomen. The abdominal wall is covered with multiple large ecchymoses from injections of Lovenox.) Back Exam: No: CVA Tenderness (L), CVA Tenderness (R) Extremities: Normal Inspection, Normal Range of Motion, Non-Tender, No Pedal Edema, Other (She has a PICC line left antecubital fossa) Neurological: Alert, Oriented, CN II-XII Intact, Normal Cognition Psychiatric: Flat Affect Skin Exam: Warm, Dry, Intact, Pallor (Palliative encounter.) Course - Vital Signs Last Recorded V/S: Last Vital Signs Temp 36.7 C 07/01/20 12:49 Pulse 92 07/01/20 15:30 Resp 13 07/01/20 08:52 BP 130/90 07/01/20 15:30 Pulse Ox 98 07/01/20 15:30 - Orders/Labs/Meds Labs: Laboratory Tests 07/01/20 07/01/20 07/01/20 Range/Units 09:30 09:30 10:55 WBC 18.45 H (4.23-9.07) K/mm3 RBC 3.86 L (4.63-6.08) M/mm3 Hgb 10.2 L (13.7-17.5) gm/dl Hct 31.9 L (40.1-51.0) % MCV 82.6 (79.0-92.2) fl MCH 26.4 (25.7-32.2) pg MCHC 32.0 L (32.2-35.5) g/dl RDW Std Deviation 54.3 H (35.1-43.9) fL Plt Count 117 L (163-337) K/mm3 MPV 11.7 (9.4-12.3) fl Neut % (Auto) 82.3 H (34.0-67.9) % Lymph % (Auto) 5.0 L (21.8-53.1) % Dent % (Auto) 8.0 (5.3-12.2) % Eos % (Auto) 0.2 L (0.8-7.0) Baso % (Auto) 0.2 (0.1-1.2) % Neut # (Auto) 15.20 H (1.78-5.38) K/mm3 Lymph # (Auto) 0.92 L (1.32-3.57) K/mm3 Dent # (Auto) 1.47 H (0.30-0.82) K/mm3 Eos # (Auto) 0.03 L (0.04-0.54) K/mm3 Baso # (Auto) 0.04 (0.01-0.08) K/mm3 Manual Slide Review Abnormal smear Sodium 138 (136-145) mEq/L Potassium 3.0 L (3.5-5.1) mEq/L Chloride 97 L (98-107) mEq/L Carbon Dioxide 28 (21-32) mEq/L Anion Gap 16.0 H (5-15) BUN 11 (7-18) mg/dL Creatinine 0.6 L (0.7-1.3) mg/dL Est Cr Clr Drug Dosing 190.95 mL/min Estimated GFR (MDRD) > 60 (>60) mL/min BUN/Creatinine Ratio 18.3 H (14-18) Glucose 81 (74-106) mg/dL Lactic Acid 1.1 (0.4-2.0) mmol/L Calcium 8.5 (8.5-10.1) mg/dL Magnesium 1.8 (1.8-2.4) mg/dl Total Bilirubin 0.7 (0.2-1.0) mg/dL GGT 123 H (15-85) U/L AST 41 H (15-37) U/L ALT 25 (16-63) U/L Alkaline Phosphatase 117 H (46-116) U/L C-Reactive Protein 8.1 H* (<1.0) mg/dL Total Protein 5.9 L (6.4-8.2) g/dl Albumin 2.3 L (3.4-5.0) g/dl Globulin 3.6 gm/dL Albumin/Globulin Ratio 0.6 L (1-2) Lipase 319 (73-393) U/L SARS-CoV-2 RNA (MARI) (NEGATIVE) 07/01/20 Range/Units 11:05 WBC (4.23-9.07) K/mm3 RBC (4.63-6.08) M/mm3 Hgb (13.7-17.5) gm/dl Hct (40.1-51.0) % MCV (79.0-92.2) fl MCH (25.7-32.2) pg MCHC (32.2-35.5) g/dl RDW Std Deviation (35.1-43.9) fL Plt Count (163-337) K/mm3 MPV (9.4-12.3) fl Neut % (Auto) (34.0-67.9) % Lymph % (Auto) (21.8-53.1) % Dent % (Auto) (5.3-12.2) % Eos % (Auto) (0.8-7.0) Baso % (Auto) (0.1-1.2) % Neut # (Auto) (1.78-5.38) K/mm3 Lymph # (Auto) (1.32-3.57) K/mm3 Dent # (Auto) (0.30-0.82) K/mm3 Eos # (Auto) (0.04-0.54) K/mm3 Baso # (Auto) (0.01-0.08) K/mm3 Manual Slide Review Sodium (136-145) mEq/L Potassium (3.5-5.1) mEq/L Chloride (98-107) mEq/L Carbon Dioxide (21-32) mEq/L Anion Gap (5-15) BUN (7-18) mg/dL Creatinine (0.7-1.3) mg/dL Est Cr Clr Drug Dosing mL/min Estimated GFR (MDRD) (>60) mL/min BUN/Creatinine Ratio (14-18) Glucose (74-106) mg/dL Lactic Acid (0.4-2.0) mmol/L Calcium (8.5-10.1) mg/dL Magnesium (1.8-2.4) mg/dl Total Bilirubin (0.2-1.0) mg/dL GGT (15-85) U/L AST (15-37) U/L ALT (16-63) U/L Alkaline Phosphatase (46-116) U/L C-Reactive Protein (<1.0) mg/dL Total Protein (6.4-8.2) g/dl Albumin (3.4-5.0) g/dl Globulin gm/dL Albumin/Globulin Ratio (1-2) Lipase (73-393) U/L SARS-CoV-2 RNA (MARI) Negative (NEGATIVE) - Radiology Interpretation Free Text/Narrative:: 29-year-old male with 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 Presents with recurrent ascites. He had associated development of nausea and vomiting this morning after changing his fentanyl patches. Currently on the 25 mcg/h patch and a 12 mcg/h patch for pain relief. Started vomiting and this is what brought him to the ED this morning. Complains of severe diffuse abdominal pain. Patient is scheduled for interventional radiology to remove fluid from the peritoneal cavity or paracentesis today in [place] at 11:00. Patient does have a PICC line left upper extremity. It will be accessed. He was given Zofran 4 mg IV for initial nausea relief and 1 mg of Dilaudid. Plan will also be to give him Phenergan 25 mg IV for further nausea relief. He is hoping to be admitted to the hospital. Preferably this will be done in [place] where he can have his paracentesis done either later today or tomorrow. Routine labs were ordered. - Re-Assessments/Exams Free Text/Narrative Re-Assessment/Exam: 07/01/20 10:35 reevaluation he still having a significant amount of abdominal pain. He rates it currently as a 4 out of 10. He is dry in the mouth and will be offered some water with ice. Will repeat Dilaudid 0.5 mg IV for further pain relief. Mother is present now. The plan was for him to travel to [place] today for interventional radiology to perform his paracentesis. At this point time he believes he needs admission to the hospital. Mother does not believe she can take him by car and therefore he would have to be transported by ambulance. I will discuss with hospitalist at [place] in this regard. 07/01/20 10:48 White count is elevated at 18.45. I believe white count is elevated secondary to dexamethasone use. Differential shows 82.3% neutrophils. Hemoglobin is low at 10.2 with hematocrit of 31.9. Platelet count is 117,000. The smear reveals 1+ anisocytosis and lymphopenia. Sodium 138 potassium low at 3.0 chloride 97 bicarb is 28. Anion gap is 16.0 BUN is 11 with a creatinine of 0.6 GFR is 60. Glucose 81 with a calcium of 8.5. Magnesium 1.8 total b ilirubin is 0.7 and GGT elevated at 123 AST is 41 with an ALT of 25 alk phosphatase 117. C-reactive protein is elevated at 8.1. Total protein is 5.9 with an albumin fraction of 2.3 globulin is 3.6 lipase 319. 07/01/20 10:49 discussion with the family i.e. his mother and himself they prefer to be transferred to [place] so that he can have interventional radiology pursue paracentesis as had been planned earlier this morning. Mother does not believe she can transport him at this point time via private vehicle. IV will be started at normal saline 75 mils per hour. 07/01/20 11:04 I have spoken through the 1 call nurse at [facility] in [place] and she is going to discuss case with Dr. Rosales engineer remote control diesel for oncology today. Then she will speak with hospitalist Dr. Quesada. At this point time they are very short of beds and may be a while till we can transfer him to that facility. He is going to follow me back when she gets things ironed out in that regard. 07/01/20 11:25 I have spoke with Dr. Quesada at [facility] in [place] on- call hospitalist and she is graciously accepted care. There will be a delay since there is no bed available at this time. Patient will be transferred to that facility. Per ground ambulance once a bed becomes available. COVID-19 screen did come back negative. 07/01/20 13:13 I just rechecked the patient. He states he still has pain 3 out of 10 but does not want any further analgesia at this time. Still awaiting a bed to become available at [facility] before transport. Free Text/Narrative Re-Assessment/Exam: 07/01/20 14:53 a bed has now become available in [facility]. Therefore ambulance has been summoned to provide transport to that facility. 07/01/20 15:12 right at the time of discharge the patient began retching and vomiting. Will repeat Zofran 4 mg IV and Dilaudid 1 mg IV for pain relief. Departure - Departure Time of Disposition: 15:30 Disposition: DC/Tfer to Acute Hospital 02 Condition: Serious Clinical Impression: Carcinomatosis peritonei, Ascites, malignant, Hypokalemia Chronic pain Qualifiers: Chronic pain type: chronic pain syndrome Qualified Code(s): G89.4 - Chronic pain syndrome - Discharge Information *PRESCRIPTION DRUG MONITORING PROGRAM REVIEWED*: Not Applicable *COPY OF PRESCRIPTION DRUG MONITORING REPORT IN PATIENT SIMONE: Not Applicable Referrals: Narayan Robles, HAND SHOES SEWER [Primary Care Provider] - Forms: ED Department Discharge Additional Instructions: Patient transferred to [facility] in [place] for control of nausea vomiting and pain management. He also is going to require paracentesis which is carried out primarily by interventional radiology at that facility almost on a weekly basis since diagnosis of adenocarcinoma of the abdomen of unclear etiology in the early part of April of this year. Sepsis Event Note (ED) - Evaluation Sepsis Screening Result: No Definite Risk - Focused Exam Vital Signs: Vital Signs Temp Pulse Resp BP Pulse Ox 07/01/20 15:30 92 130/90 98 07/01/20 12:49 36.7 C 94 133/89 98 07/01/20 09:35 95 129/88 07/01/20 08:52 36.3 C 101 H 13 150/98 H 98
[2020-07-01] MEDS ORDERED: HYDROmorphone 0.5 MG/0.5 ML Syringe IVPUSH ONE (10:34)
[2020-07-01] MEDS ORDERED: Dextrose 5%-0.9% NaCl 1,000 ML IV SCH (10:45)
[2020-07-01] MEDS: Potassium Chloride 10 MEQ in Premix Bag 1 BAG IV SCH ×3 (12:13→14:24)
[2020-07-01] MEDS ORDERED: HYDROmorphone 1 MG/ML Syringe ONE (15:14)
[2020-07-01] MEDS ORDERED: Ondansetron 4 MG/2 ML SDV ONE (15:15)
[2020-07-01 15:52] VITALS: BP 130/90; PULSE 92
== END 2020-07-01 15:30 ==
LOC: JD.ED 08:44
DX: C78.6 Secondary malignant neoplasm of retroperitoneum and peritoneum (principal); R18.0 Malignant ascites; E87.6 Hypokalemia; E66.9 Obesity, unspecified; Z88.0 Allergy status to penicillin; Z88.8 Allergy status to other drugs, medicaments and biological substances; Z79.899 Other long term (current) drug therapy; Z79.01 Long term (current) use of anticoagulants; Z20.822 Contact with and (suspected) exposure to COVID-19
CPT/HCPCS: 36415; 80053; 82977; 83605; 83690; 83735; 85025; 86140; 87635; 96365; 96366; 96367; 96375; 96376; 99284; J1170; J2405; J2550; J3480; J7042; 99285; U0002

== ENCOUNTER 2020-08-03 18:16 | Emergency (ER) | payer BC ==
[2020-08-03] MEDS ORDERED: Sodium Chloride 0.9% 10 ML Syringe FLUSH PRN (19:06)
[2020-08-03] MEDS ORDERED: HYDROmorphone 1 MG/ML Syringe IVPUSH ONE ×2 (19:08→21:17)
--- NOTE | 2020-08-03 19:44 | EDM.PDOC ---
<LuxJameson A - Last Filed: 08/04/20 00:02> ED HPI GENERAL MEDICAL PROBLEM - General Chief Complaint: Abdominal Pain Stated Complaint: [facility] Time Seen by Provider: 08/03/20 18:29 - Related Data Allergies Allergy/AdvReac Type Severity Reaction Status Date / Time lactose Allergy Severe Vomiting Verified 08/03/20 20:37 metoclopramide [From Reglan] Allergy Severe Abdominal Verified 08/03/20 20:37 Pain Penicillins Allergy Severe Hives Verified 08/03/20 20:37 pseudoephedrine Allergy Severe Other Verified 08/03/20 20:37 Home Meds: Home Meds Cyclobenzaprine [Flexeril] 10 mg PO BID PRN 04/20/20 [History] Dicyclomine [Bentyl] 20 mg PO QID 05/29/20 [History] Escitalopram [Lexapro] 10 mg PO DAILY 05/29/20 [History] LORazepam [Ativan] 0.5 mg PO ASDIRECTED 05/29/20 [History] Loperamide [Imodium] 2 mg PO ASDIRECTED PRN 05/29/20 [History] Promethazine [Phenergan] 25 mg TOP Q6H PRN 05/29/20 [History] fentaNYL [Duragesic] 25 mcg TD Q72H 05/29/20 [History] Apixaban [Eliquis] 5 mg PO BID 07/01/20 [History] Cannabidiol (Cbd) Extract [CBD Oil] 1 dose PO ASDIRECTED PRN 07/01/20 [History] Furosemide [Lasix] 40 mg PO DAILY 08/03/20 [History] Melatonin 5 mg PO BEDTIME 08/03/20 [History] Mirtazapine [Remeron] 15 mg PO BEDTIME 08/03/20 [History] Ondansetron [Zofran ODT] 4 mg SL QID PRN 08/03/20 [History] amLODIPine [Norvasc] 10 mg PO DAILY 08/03/20 [History] hydrALAZINE [Apresoline] 25 mg PO TID 08/03/20 [History] oxyCODONE HCl [Oxycontin] 30 mg PO BID PRN 08/03/20 [History] Course - Re-Assessments/Exams Free Text/Narrative Re-Assessment/Exam: 08/03/20 23:54 Case received from Ame Cotter NP. I agree with the history and physical exam as documented. CT of the abdomen and pelvis with oral and IV contrast is read by Goyo as: 1. Numerous peritoneal nodules with omental caking which is consistent with peritoneal metastatic disease with progression since comparison examination. Correlate with patient history. 2. Areas of low density in the liver roughly along the location of the inter lobar fissure which given degree of peritoneal disease probably represents extension of peritoneal disease along the inter lobar fissure with extension into the liver. 3. Moderate ascites which has increased in extent since the comparison examination, presumably malignant ascites. 4. Stable splenomegaly. 5. Multiple small bowel air-fluid levels with borderline/mild small bowel distention without clear point of small bowel obstruction. This likely represents mild ileus. 6. Moderate sized bilateral pleural effusions with associated compressive atelectasis at the lung bases. 7. Stable enlarged pericardial lymph node. 08/04/20 00:02 Test results discussed with the patient and his mother, who is at the bedside. The patient is anxious to go home, but requested an additional shot of Dilaudid prior to discharge. He states that he does not need any new prescriptions for anything. Departure - Departure Time of Disposition: 00:03 Disposition: Home, Self-Care 01 Condition: Fair Clinical Impression: Adenocarcinoma Abdominal pain Qualifiers: Abdominal location: generalized Qualified Code(s): R10.84 - Generalized abdominal pain - Discharge Information *PRESCRIPTION DRUG MONITORING PROGRAM REVIEWED*: Not Applicable *COPY OF PRESCRIPTION DRUG MONITORING REPORT IN PATIENT SIMONE: Not Applicable Instructions: Abdominal Pain, Adult Referrals: Narayan Robles NP [Primary Care Provider] - Forms: ED Department Discharge Additional Instructions: You were seen in the emergency room for abdominal pain in the setting of adenocarcinoma. Work-up in the ER included several blood tests, 2 sets of blood cultures, a urinalysis, a chest x-ray, and a CT of your abdomen and pelvis with oral and IV contrast. Your work-up found evidence for metastatic disease, but with no acute problems, such as a small bowel obstruction. Your pain is most likely due to the development of tolerance to your opioid pain relievers. We recommend that you contact the provider who prescribes your pain medications, to discuss modification of the prescriptions. If any other problems, please do not hesitate to return to the ER. <Ame Cotter - Last Filed: 08/05/20 09:48> ED HPI GENERAL MEDICAL PROBLEM - General Source of Information: Reports: Patient History Limitations: Reports: No Limitations - History of Present Illness INITIAL COMMENTS - FREE TEXT/NARRATIVE: 29-year-old male with a history of adenocarcinoma of the abdomen presents to the emergency department today with complaints of abdominal pain. Patient was recently discharged from [facility] in [place] 4 days ago. Patient was in the hospital for about a month prior to being discharged. He states that he is trying to get stronger at this time as his oncologist, , has discussed the possibility of a fourth round of chemotherapy as he has already undergone 3. Patient presents today with increased abdominal pain to right and left upper quadrants. He does have a low-grade temp of 100.0 at presentation to the emergency department. Patient states that his fentanyl patch is due to be changed tomorrow and he feels like he is just having breakthrough pain due to this. Of note the patient also takes oxycodone short acting and long lasting an addition to the fentanyl patches. Patient states that he had a paracentesis completed just prior to his discharge from [facility] on which was 4 days ago. Patient does have a PICC line in place and he receives TPN 14/11. Bilateral Upper Abdomen Pain Score (Numeric/FACES): 5 Past Medical History Cardiovascular History: Reports: Hypertension Other Cardiovascular History: 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-getting lovenox shots, tachycardia Gastrointestinal History: Reports: GERD, Other (See Below) Other Gastrointestinal History: umbilical hernia, ascities with paracentesis performed, adenocarcinoma with paratenial spread stage 4 Musculoskeletal History: Reports: Fracture Psychiatric History: Reports: Anxiety, Depression Endocrine/Metabolic History: Reports: Obesity/BMI 30+ Hematologic History: Reports: Anticoagulation Therapy Oncologic (Cancer) History: Reports: Metastatic, Other (See Below) Other Oncologic History: lymph node of abdominal wall. adenocarcinoma with parat ineal spread stage 4 - Past Surgical History HEENT Surgical History: Reports: Adenoidectomy, Tonsillectomy GI Surgical History: Reports: Other (See Below) Other GI Surgeries/Procedures: sx attempted to place feeding tube but unsucessfull. Other Oncologic Surgeries/Procedures: reports GI cancer Social & Family History - Family History Family Medical History: No Pertinent Family History - Tobacco Use Tobacco Use Status *Q: Never Tobacco User Second Hand Smoke Exposure: No - Caffeine Use Caffeine Use: Reports: None - Recreational Drug Use Recreational Drug Use: Yes Recreational Drug Type: Reports: Marijuana/Hashish Recreational Drug Use Frequency: Daily - Living Situation & Occupation Living situation: Reports: , with Spouse Occupation: Employed ED ROS GENERAL - Review of Systems Review Of Systems: Comprehensive ROS is negative, except as noted in HPI. ED EXAM, GI/ABD - Physical Exam Exam: See Below Exam Limited By: No Limitations General Appearance: Alert, WD/WN, Mild Distress Ears: Normal External Exam, Hearing Grossly Normal Nose: Normal Inspection Throat/Mouth: Normal Inspection, Normal Lips, Normal Voice, No Airway Compromise Head: Atraumatic, Normocephalic Neck: Normal Inspection, Supple Respiratory/Chest: No Respiratory Distress, Lungs Clear, Normal Breath Sounds, No Accessory Muscle Use, Chest Non-Tender Cardiovascular: Normal Peripheral Pulses, Regular Rate, Rhythm, No Edema, No Murmur GI/Abdominal Exam: Distended, Tender (right and left upper quadrant). No: Normal Bowel Sounds (hypoactive), Soft (slightly firm) (Male) Exam: Deferred Rectal (Males) Exam: Deferred Back Exam: Normal Inspection Extremities: Normal Inspection, Normal Range of Motion, Non-Tender, No Pedal Edema, Normal Capillary Refill Neurological: Alert, Oriented, Normal Cognition Psychiatric: Normal Affect, Normal Mood Skin Exam: Warm, Dry, Intact, No Rash, Pallor Lymphatic: No Adenopathy Course - Vital Signs Text/Narrative:: 29-year-old male with a history of adenocarcinoma recently discharged from [facility] in [place]. Presenting to the emergency department with complaints of increased right and left upper quadrant abdominal pain. Patient states he is on a fentanyl patch 25 mics to be changed every 72 hours. He states that is due to be changed tomorrow so he feels as though he is having breakthrough pain at this time. However on presentation to the emergency department he does have a low-grade temp of 100.0, he is tachycardic and tachypneic. I have ordered a full septic work-up on this patient. I discussed the potential for the need for him to be admitted and he states he does not want to be transferred to [place] if we feel that he needs to be admitted. Last Recorded V/S: Last Vital Signs Temp 99 F 08/04/20 00:31 Pulse 110 H 08/04/20 00:31 Resp 16 08/04/20 00:31 BP 141/99 H 08/04/20 00:31 Pulse Ox 95 08/04/20 00:31 - Orders/Labs/Meds Labs: Laboratory Tests 08/03/20 08/03/20 08/03/20 Range/Units 18:45 19:29 19:37 WBC 6.25 (4.23-9.07) K/mm3 RBC 3.22 L (4.63-6.08) M/mm3 Hgb 8.3 L D (13.7-17.5) gm/dl Hct 29.4 L (40.1-51.0) % MCV 91.3 D (79.0-92.2) fl MCH 25.8 (25.7-32.2) pg MCHC 28.2 L (32.2-35.5) g/dl RDW Std Deviation 65.3 H (35.1-43.9) fL Plt Count 213 D (163-337) K/mm3 MPV 11.8 (9.4-12.3) fl Neutrophils % (Manual) 71 H (40-60) % Band Neutrophils % 2 (0-10) % Lymphocytes % (Manual) 13 L (20-40) % Atypical Lymphs % 0 % Monocytes % (Manual) 12 H (2-10) % Eosinophils % (Manual) 0 L (0.8-7.0) % Basophils % (Manual) 2 H (0.2-1.2) Platelet Estimate Adequate Polychromasia Few Hypochromasia 1+ slight Anisocytosis 1+ slight Macrocytosis 1+ slight RBC Morph Comment Not Reportable PT (9.7-12.0) SECONDS INR Sodium (136-145) mEq/L Potassium (3.5-5.1) mEq/L Chloride (98-107) mEq/L Carbon Dioxide (21-32) mEq/L Anion Gap (5-15) BUN (7-18) mg/dL Creatinine (0.7-1.3) mg/dL Est Cr Clr Drug Dosing mL/min Estimated GFR (MDRD) (>60) mL/min BUN/Creatinine Ratio (14-18) Glucose (74-106) mg/dL Lactic Acid 0.9 (0.4-2.0) mmol/L Calcium (8.5-10.1) mg/dL Total Bilirubin (0.2-1.0) mg/dL AST (15-37) U/L ALT (16-63) U/L Alkaline Phosphatase (46-116) U/L C-Reactive Protein (<1.0) mg/dL Total Protein (6.4-8.2) g/dl Albumin (3.4-5.0) g/dl Globulin gm/dL Albumin/Globulin Ratio (1-2) Urine Color Yellow (Yellow) Urine Appearance Cloudy H (Clear) Urine pH 6.0 (5.0-8.0) Ur Specific [place] > or = 1.030 (1.005-1.030) Urine Protein 2+ H (Negative) Urine Glucose (UA) Negative (Negative) Urine Ketones Negative (Negative) Urine Occult Blood Negative (Negative) Urine Nitrite Negative (Negative) Urine Bilirubin 1+ H (Negative) Urine Urobilinogen 1.0 (0.2-1.0) Ur Leukocyte Esterase Negative (Negative) Urine RBC 0-5 (0-5) /hpf Urine WBC 0-5 (0-5) /hpf Ur Squamous Epith Cells 0-5 (0-5) /hpf Amorphous Sediment Few H (NOT SEEN) /hpf Urine Bacteria Many H (FEW) /hpf Urine Mucus Many H (FEW) /hpf 08/03/20 08/03/20 Range/Units 19:37 19:37 WBC (4.23-9.07) K/mm3 RBC (4.63-6.08) M/mm3 Hgb (13.7-17.5) gm/dl Hct (40.1-51.0) % MCV (79.0-92.2) fl MCH (25.7-32.2) pg MCHC (32.2-35.5) g/dl RDW Std Deviation (35.1-43.9) fL Plt Count (163-337) K/mm3 MPV (9.4-12.3) fl Neutrophils % (Manual) (40-60) % Band Neutrophils % (0-10) % Lymphocytes % (Manual) (20-40) % Atypical Lymphs % % Monocytes % (Manual) (2-10) % Eosinophils % (Manual) (0.8-7.0) % Basophils % (Manual) (0.2-1.2) Platelet Estimate Polychromasia Hypochromasia Anisocytosis Macrocytosis RBC Morph Comment PT 11.3 (9.7-12.0) SECONDS INR 1.06 Sodium 137 (136-145) mEq/L Potassium 3.8 (3.5-5.1) mEq/L Chloride 101 (98-107) mEq/L Carbon Dioxide 25 (21-32) mEq/L Anion Gap 14.8 (5-15) BUN 18 (7-18) mg/dL Creatinine 0.4 L (0.7-1.3) mg/dL Est Cr Clr Drug Dosing 286.42 mL/min Estimated GFR (MDRD) > 60 (>60) mL/min BUN/Creatinine Ratio 45.0 H (14-18) Glucose 92 (74-106) mg/dL Lactic Acid (0.4-2.0) mmol/L Calcium 8.8 (8.5-10.1) mg/dL Total Bilirubin 0.6 (0.2-1.0) mg/dL AST 53 H (15-37) U/L ALT 26 (16-63) U/L Alkaline Phosphatase 167 H (46-116) U/L C-Reactive Protein 7.1 H* (<1.0) mg/dL Total Protein 6.3 L (6.4-8.2) g/dl Albumin 2.1 L (3.4-5.0) g/dl Globulin 4.2 gm/dL Albumin/Globulin Ratio 0.5 L (1-2) Urine Color (Yellow) Urine Appearance (Clear) Urine pH (5.0-8.0) Ur Specific [place] (1.005-1.030) Urine Protein (Negative) Urine Glucose (UA) (Negative) Urine Ketones (Negative) Urine Occult Blood (Negative) Urine Nitrite (Negative) Urine Bilirubin (Negative) Urine Urobilinogen (0.2-1.0) Ur Leukocyte Esterase (Negative) Urine RBC (0-5) /hpf Urine WBC (0-5) /hpf Ur Squamous Epith Cells (0-5) /hpf Amorphous Sediment (NOT SEEN) /hpf Urine Bacteria (FEW) /hpf Urine Mucus (FEW) /hpf Meds: Medications Discontinued Medications Generic Name Dose Route Start Last Admin Trade Name Freq PRN Reason Stop Dose Admin Hydromorphone HCl 1 mg 08/03/20 19:08 08/03/20 19:18 Hydromorphone 1 Mg/Ml Syringe IVPUSH 08/03/20 19:09 1 mg ONETIME ONE Administration Hydromorphone HCl 1 mg 08/03/20 21:17 08/03/20 21:31 Hydromorphone 1 Mg/Ml Syringe IVPUSH 08/03/20 21:18 1 mg ONETIME ONE Administration Hydromorphone HCl 1 mg 08/04/20 00:02 08/04/20 00:08 Hydromorphone 1 Mg/Ml Syringe IVPUSH 08/04/20 00:03 1 mg ONETIME ONE Administration Sodium Chloride 10 ml 08/03/20 19:06 08/03/20 19:24 Sodium Chloride 0.9% 10 Ml Syringe FLUSH 10 ml ASDIRECTED PRN Administration Keep Vein Open - Re-Assessments/Exams Free Text/Narrative Re-Assessment/Exam: 08/03/20 21:01 Radiologist impression portable view of the chest: 1. Nothing acute is appreciated on portable chest x-ray. 08/03/20 21:28 Hematology reveals a WBC of 6.25, hemoglobin 8.3, hematocrit 29.4, 213 Coagulation reveals a pro time 11.3, INR 1.06 Chemistry reveals a sodium of 137, potassium 3.8, chloride 101, BUN 18, creatinine 0.4, glucose 92, lactic acid 0.9, AST 53, ALT 26, alk phos 167, C- reactive protein 7.1 Urinalysis reveals 2+ protein, 1+ bilirubin, nitrite negative, urine leuk esterase negative The patient's mother was able to pull up his most recent lab work from July 30 when he was discharged from [facility]. At that time he had a white blood cell count of 10 and a hemoglobin of 8.2. They did not have CRP readily available at that time. With the patient's worsening abdominal pain although he contributes this to needing to have his fentanyl patch changed, I have elected to order CT of the abdomen and pelvis and the patient is agreeable to this. He is also requesting more pain medication at this time and I have ordered another dose of Dilaudid for him. 08/03/20 22:35 Nursing staff rechecks the patient's temp and report that it is 99.0 Sepsis Event Note (ED) - Evaluation Sepsis Screening Result: Possible Sepsis Risk
--- NOTE | 2020-08-03 20:03 | CR ---
Chest: Portable view of the chest was obtained. Comparison: Prior chest x-ray of 06/30/20. Heart size and mediastinum are normal. Lungs are clear with no acute parenchymal change. Bony structures are grossly intact. Impression: 1. Nothing acute is appreciated on portable chest x-ray. Diagnostic code #1
[2020-08-04] MEDS ORDERED: HYDROmorphone 1 MG/ML Syringe IVPUSH ONE (00:02)
[2020-08-04 00:32] VITALS: BP 141/99; PULSE 110
--- NOTE | 2020-08-04 08:16 | CT ---
CT abdomen and pelvis Technique: Multiple axial sections were obtained from above the dome of the diaphragm inferiorly through the pubic symphysis. Intravenous contrast was utilized. Delayed images were also obtained through the abdomen and pelvis. Reconstructed coronal and sagittal images were obtained. Comparison: Prior CT abdomen and pelvis exam of 04/20/20. Findings: Moderate sized bilateral pleural effusions are noted. Areas of atelectasis are noted adjacent to the pleural effusions. Several lymph nodes are seen within the sub-diaphragmatic area within the mid and right side. Largest lymph node measures about 2.4 cm. These lymph nodes are felt to be fairly stable from prior exam. Irregular density is noted within the left lobe of the liver. This finding does not appear to represent simple cysts and most likely is due to liver metastatic disease. Exact overall dimension is difficult to obtain but measures approximately 5.6 cm. There may be slight extension outside the liver inferiorly. Findings are slightly more prominent than on previous exam. Liver shows fatty infiltration. Spleen is enlarged. Spleen has a length of about 15.0 cm. Adrenal glands show no nodule. Pancreas is atrophied but shows no discrete abnormality. Kidneys show symmetric contrast enhancement without hydronephrosis or mass. Abdominal aorta shows no aneurysm. Scattered small retroperitoneal lymph nodes are noted. Mesenteric lymph nodes are also seen. There is diffuse soft tissue density within the greater omentum compatible with omental metastasis. These lymph nodes are slightly more prominent than on prior exam. Diffuse ascites is noted. Scattered air-fluid level is seen within the small bowel which shows no abrupt termination and this is felt to be incidental. No pelvic mass or adenopathy is appreciated. Appendix is not visualized with certainty. Delayed images show contrast within the bladder and distal ureters. Bone window settings were reviewed which show no acute osseous abnormality. Small fat-containing umbilical hernia is noted. Impression: 1. Stable lymph nodes above the mid and right-sided sub-diaphragmatic region. 2. Moderate bilateral pleural effusions which have increased from prior exam. Areas of atelectasis are seen adjacent to the pleural effusions. 3. Ascites is seen which has increased from prior exam. 4. Left-sided liver mass which shows apparent extension outside the liver. This appears to be slightly increased from prior exam. 5. Small retroperitoneal lymph nodes are seen. Multiple mesenteric lymph nodes as well as caking within the greater omentum are noted. Findings are compatible with diffuse metastatic disease which has worsened from prior exam. 6. Other findings which are believed to be stable and incidental as noted above. Diagnostic code #9 I agree with preliminary report from Goyo, finalized on 0 08/04/20, 12:26 AM CDT
== END 2020-08-04 00:25 | disposition home or self-care (01) ==
LOC: JD.ED 18:16
DX: C76.2 Malignant neoplasm of abdomen (principal); I10 Essential (primary) hypertension; K21.9 Gastro-esophageal reflux disease without esophagitis; E66.9 Obesity, unspecified; Z68.34 Body mass index [BMI] 34.0-34.9, adult; Z91.048 Other nonmedicinal substance allergy status; Z88.8 Allergy status to other drugs, medicaments and biological substances; Z88.0 Allergy status to penicillin; Z79.899 Other long term (current) drug therapy; Z79.01 Long term (current) use of anticoagulants
CPT/HCPCS: 36415; 71045; 74177; 80053; 81001; 83605; 85007; 85027; 85610; 86140; 87040; 96374; 96376; 99285; J1170; 99284

== ENCOUNTER 2020-08-07 18:20 | Emergency (ER) | payer BC ==
[2020-08-07] MEDS ORDERED: HYDROmorphone 1 MG/ML Syringe IVPUSH ONE (18:24)
[2020-08-07] MEDS ORDERED: Ondansetron 4 MG/2 ML SDV IVPUSH ONE (18:25)
[2020-08-07 18:29] VITALS: BP 135/74; PULSE 95
--- NOTE | 2020-08-07 18:30 | EDM.PDOC ---
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 He remains on chemotherapy. He is currently receiving continuous TPN feedings through a PICC line in his left cephalic vein. This afternoon or shortly before arrival they were going to start his TPN which apparently is a new formulation and he started to bleed from his PICC line. Therefore he had to clamp the PICC line to stop the bleeding. Upon arrival here we found there was a scab on the end of the PICC line without a proper pressure valve to prevent any leakage from the PICC line. It was then irrigated with normal saline with no problems. Mom is going to bring up his PICC line attachment to his TPN to make sure that it engages appropriately before we send him home. 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 He will be given Dilaudid 1 mg IV with Zofran 4 mg IV. 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 He has been treated aggressively with chemotherapy for suspect adenocarcinoma of the colon.). Denies: Activity, Exercise, Lifting, Sick Contact, Trauma Associated Symptoms: Denies: Confusion, Chest Pain, Cough, cough w sputum, Diaphoresis, Fever/Chills, Headaches, Loss of Appetite, Malaise, Nausea/Vomiting, Rash, Seizure, Shortness of Breath, Syncope - Related Data Allergies Allergy/AdvReac Type Severity Reaction Status Date / Time lactose Allergy Severe Vomiting Verified 08/07/20 18:25 metoclopramide [From Reglan] Allergy Severe Abdominal Verified 08/07/20 18:25 Pain Penicillins Allergy Severe Hives Verified 08/07/20 18:25 pseudoephedrine Allergy Severe Other Verified 08/07/20 18:25 Home Meds: Home Meds Cyclobenzaprine [Flexeril] 10 mg PO BID PRN 04/20/20 [History] Dicyclomine [Bentyl] 20 mg PO QID 05/29/20 [History] Escitalopram [Lexapro] 10 mg PO DAILY 05/29/20 [History] LORazepam [Ativan] 0.5 mg PO ASDIRECTED 05/29/20 [History] Loperamide [Imodium] 2 mg PO ASDIRECTED PRN 05/29/20 [History] Promethazine [Phenergan] 25 mg TOP Q6H PRN 05/29/20 [History] fentaNYL [Duragesic] 25 mcg TD Q72H 05/29/20 [History] Apixaban [Eliquis] 5 mg PO BID 07/01/20 [History] Cannabidiol (Cbd) Extract [CBD Oil] 1 dose PO ASDIRECTED PRN 07/01/20 [History] Furosemide [Lasix] 40 mg PO DAILY 08/03/20 [History] Melatonin 5 mg PO BEDTIME 08/03/20 [History] Mirtazapine [Remeron] 15 mg PO BEDTIME 08/03/20 [History] Ondansetron [Zofran ODT] 4 mg SL QID PRN 08/03/20 [History] amLODIPine [Norvasc] 10 mg PO DAILY 08/03/20 [History] hydrALAZINE [Apresoline] 25 mg PO TID 08/03/20 [History] oxyCODONE HCl [Oxycontin] 30 mg PO BID PRN 08/03/20 [History] Past Medical History Cardiovascular History: Reports: Hypertension Other Cardiovascular History: 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-getting lovenox shots, tachycardia Gastrointestinal History: Reports: GERD, Other (See Below) Other Gastrointestinal History: umbilical hernia, ascities with paracentesis performed, adenocarcinoma with paratenial spread stage 4 Musculoskeletal History: Reports: Fracture Psychiatric History: Reports: Anxiety, Depression Endocrine/Metabolic History: Reports: Obesity/BMI 30+ Hematologic History: Reports: Anticoagulation Therapy Oncologic (Cancer) History: Reports: Metastatic, Other (See Below) Other Oncologic History: lymph node of abdominal wall. adenocarcinoma with paratineal spread stage 4 - Past Surgical History HEENT Surgical History: Reports: Adenoidectomy, Tonsillectomy GI Surgical History: Reports: Other (See Below) Other GI Surgeries/Procedures: sx attempted to place feeding tube but unsucessfull. Other Oncologic Surgeries/Procedures: reports GI cancer Social & Family History - Family History Family Medical History: No Pertinent Family History - Caffeine Use Caffeine Use: Reports: None - Living Situation & Occupation Living situation: Reports: , with Spouse Occupation: Employed ED ROS GENERAL - Review of Systems Review Of Systems: See Below Constitutional: Reports: Malaise, Weakness, Fatigue, Decreased Appetite, Weight Loss. Denies: Fever, Chills HEENT: Reports: No Symptoms Respiratory: Reports: Shortness of Breath (Has problems with recurrent pleural effusions and requiring) Cardiovascular: Reports: No Symptoms ( thoracentesis.) Endocrine: Reports: Fatigue GI/Abdominal: Reports: Abdominal Pain (Patient has primary adenocarcinoma of unclear primary etiology. It is presumed to be coming from the colon. He is continue to receive chemotherapy in this regard. Diagnosis was made April 202019. He has been receiving chemotherapy almost every week since. He has developed significant asc) : Reports: No Symptoms Musculoskeletal: Reports: Muscle Pain Skin: Reports: Bruising (Relief.) Neurological: Reports: No Symptoms Psychiatric: Reports: Depression Hematologic/Lymphatic: Reports: No Symptoms Immunologic: Reports: No Symptoms ED EXAM, GENERAL - Physical Exam Exam: See Below Exam Limited By: No Limitations General Appearance: Alert, WD/WN, Anxious, Mild Distress, Other (Vital signs are stable.) Extremities: Other (Lamination was limited to the PICC line in his left upper extremity. It appears to enter the cephalic vein. He had a green cap on the end of the PICC line which would allow blood to discharge from the PICC line. Therefore he had the PICC line clamped with a plastic scissors clamp used in dialysis). No: Limited Range of Motion, Increased Warmth, Mottled, Pallor, Redness Neurological: Alert, Oriented, CN II-XII Intact, Normal Cognition Psychiatric: Normal Affect, Normal Mood Skin Exam: Warm, Dry, Intact, Pallor (Pallor.) Course - Vital Signs Last Recorded V/S: Last Vital Signs Temp 36.4 C 08/07/20 18:25 Pulse 95 08/07/20 18:25 Resp 18 08/07/20 18:25 BP 135/74 08/07/20 18:25 Pulse Ox 98 08/07/20 18:25 - Orders/Labs/Meds Meds: Medications Discontinued Medications Generic Name Dose Route Start Last Admin Trade Name Peggy PRN Reason Stop Dose Admin Hydromorphone HCl 1 mg 08/07/20 18:24 08/07/20 18:36 Hydromorphone 1 Mg/Ml Syringe IVPUSH 08/07/20 18:25 1 mg ONETIME ONE Administration Ondansetron HCl 4 mg 08/07/20 18:25 08/07/20 18:36 Ondansetron 4 Mg/2 Ml Sdv IVPUSH 08/07/20 18:26 4 mg ONETIME ONE Administration - Radiology Interpretation Free Text/Narrative:: 29-year-old male presents to our ED for evaluation of blood leaking from his PICC line which is in his left upper arm in the cephalic vein. He uses this daily for TPN and chemotherapy on a weekly basis. Patient has a primary adenocarcinoma of unclear etiology although it is presumed to be coming from the large bowel. He has been receiving chemotherapy every week for the last 3-1/2 months. Today there was blood leaking from the end of his PICC line where he attaches his TPN. We identified that there was a simple cap on the end of his PICC line which when removed would allow free flow of blood out of the PICC line. We simply replaced it with a pressure valve that is used on the end of IV catheter lines for IV tubing etc. His mother will bring up his attachment for his TPN to make sure that it fits into the pressure valve. In the meantime he is asking for something for pain. He is currently on fentanyl 37.5 mg q. hourly. He uses Percocet tablets as needed for breakthrough pain. He will be given Dilaudid 1 mg IV and Zofran 4 mg IV for pain relief. - Re-Assessments/Exams Free Text/Narrative Re-Assessment/Exam: 08/07/20 18:49 mother brought up his TPN fitting and it will work just fine. Patient will therefore be discharged home in the care of mom. Departure - Departure Time of Disposition: 18:49 Disposition: Home, Self-Care 01 Condition: Fair Clinical Impression: Bleeding from PICC line Qualifiers: Encounter type: initial encounter Qualified Code(s): T82.838A - Hemorrhage due to vascular prosthetic devices, implants and grafts, initial encounter - Discharge Information *PRESCRIPTION DRUG MONITORING PROGRAM REVIEWED*: Not Applicable *COPY OF PRESCRIPTION DRUG MONITORING REPORT IN PATIENT SIMONE: Not Applicable Forms: ED Department Discharge Additional Instructions: Evaluation in the emergency room today in regards to spontaneous bleeding from the end of your PICC line in your left upper extremity. This was placed many months ago for chemotherapy and TPN on a daily basis. The cap that was fitting on the end of the PICC line is not used regularly for this. We simply remove this and attached a proper pressure valve that we use in the hospital to attach IV tubing and other lines so that blood or fluids cannot come back out through the pressure valve. The area was irrigated with saline and flushed easily. He did receive pain medication Dilaudid 1 mg IV with Zofran 4 mg IV for acute pain relief while you were in the department. May begin to use TPN as soon as you get home as per your usual with flushing of the line with saline after use. Sepsis Event Note (ED) - Focused Exam Vital Signs: Vital Signs Temp Pulse Resp BP Pulse Ox 08/07/20 18:25 36.4 C 95 18 135/74 98
== END 2020-08-07 19:14 | disposition home or self-care (01) ==
LOC: JD.ED 18:20
DX: T82.838A Hemorrhage due to vascular prosthetic devices, implants and grafts, initial encounter (principal); E66.9 Obesity, unspecified; Z68.41 Body mass index [BMI] 40.0-44.9, adult; Z91.048 Other nonmedicinal substance allergy status; Z88.8 Allergy status to other drugs, medicaments and biological substances; Z88.0 Allergy status to penicillin; Z79.01 Long term (current) use of anticoagulants; Z79.899 Other long term (current) drug therapy; I10 Essential (primary) hypertension
CPT/HCPCS: 96374; 96375; 99283; J1170; J2405; 99284

== ENCOUNTER 2020-08-09 18:58 | Emergency (ER) | payer BC ==
[2020-08-09] MEDS ORDERED: HYDROmorphone 1 MG/ML Syringe IVPUSH ONE ×3 (19:40→23:05)
[2020-08-09] MEDS ORDERED: Ondansetron 4 MG/2 ML SDV IVPUSH ONE (19:40)
[2020-08-09] MEDS ORDERED: Sodium Chloride 0.9% 1,000 ML IV SCH (19:45)
--- NOTE | 2020-08-09 19:46 | EDM.PDOC ---
ED HPI GENERAL MEDICAL PROBLEM - General Chief Complaint: Abdominal Pain Stated Complaint: BACK AND ABDOMINAL PAIN MULTIPLE ISSUES Time Seen by Provider: 08/09/20 19:16 Source of Information: Reports: Patient, Family (Mother) History Limitations: Reports: No Limitations - History of Present Illness INITIAL COMMENTS - FREE TEXT/NARRATIVE: Mr. Fleming is a very pleasant 29-year-old gentleman with a past medical history significant for adenocarcinoma of the abdomen, unknown primary source, diagnosed in March 2020, status post chemotherapy only, although not currently on it d ue to generalized weakness, who states that he has had abdominal and back pain waxing and waning since February 2020, which got much worse today. He also developed nausea and vomiting today. He feels that he is constipated, having only a very small movement today, but no real BM since 08/01/2020. No recent fever. The patient is on several narcotics, including a fentanyl patch. His fentanyl patch was changed yesterday morning, 08/08/2020. Here in the ED, the patient was initially found to be tachycardic at 131 bpm and slightly tachypneic at 22 rpm. He is afebrile, saturating 99% on room air. The patient's PCP is Narayan Robles NP. His Oncologist is Dr. Kwesi Johnston. Generalized Pain Score (Numeric/FACES): 10 - Related Data Allergies Allergy/AdvReac Type Severity Reaction Status Date / Time Penicillins Allergy Severe Hives Verified 08/09/20 19:41 pseudoephedrine Allergy Severe Other Verified 08/09/20 19:41 lactose AdvReac Severe Vomiting Verified 08/09/20 19:41 Home Meds: Home Meds Cyclobenzaprine [Flexeril] 10 mg PO BID PRN 04/20/20 [History] Dicyclomine [Bentyl] 20 mg PO QID 05/29/20 [History] Escitalopram [Lexapro] 10 mg PO DAILY 05/29/20 [History] LORazepam [Ativan] 0.5 mg PO ASDIRECTED 05/29/20 [History] Loperamide [Imodium] 2 mg PO ASDIRECTED PRN 05/29/20 [History] Promethazine [Phenergan] 25 mg TOP Q6H PRN 05/29/20 [History] fentaNYL [Duragesic] 25 mcg TD Q72H 05/29/20 [History] Apixaban [Eliquis] 5 mg PO BID 07/01/20 [History] Cannabidiol (Cbd) Extract [CBD Oil] 1 dose PO ASDIRECTED PRN 07/01/20 [History] Furosemide [Lasix] 40 mg PO DAILY 08/03/20 [History] Melatonin 5 mg PO BEDTIME 08/03/20 [History] Mirtazapine [Remeron] 15 mg PO BEDTIME 08/03/20 [History] Ondansetron [Zofran ODT] 4 mg SL QID PRN 08/03/20 [History] amLODIPine [Norvasc] 10 mg PO DAILY 08/03/20 [History] hydrALAZINE [Apresoline] 25 mg PO TID 08/03/20 [History] oxyCODONE HCl [Oxycontin] 30 mg PO BID PRN 08/03/20 [History] Lactulose 15 ml PO DAILY 08/09/20 [History] Past Medical History Cardiovascular History: Reports: Hypertension Gastrointestinal History: Reports: GERD Psychiatric History: Reports: Anxiety, Depression Endocrine/Metabolic History: Reports: Obesity/BMI 30+ Oncologic (Cancer) History: Reports: Other (See Below) (Stage IV adenocarcinoma of the abdomen, unknown primary source, s/p CTx) - Past Surgical History HEENT Surgical History: Reports: Adenoidectomy, Tonsillectomy Cardiovascular Surgical History: Reports: Other (See Below) (LUE PICC line) GI Surgical History: Reports: Colonoscopy (x 1), EGD (x 1) Other Oncologic Surgeries/Procedures: reports GI cancer Social & Family History - Tobacco Use Tobacco Use Status *Q: Former Tobacco User Tobacco Use Within Last Twelve Months: Vaping (THC) - Caffeine Use Caffeine Use: Reports: None - Alcohol Use Alcohol Use History: Yes Alcohol Use Frequency: Rarely - Recreational Drug Use Recreational Drug Use: No - Living Situation & Occupation Living situation: Reports: , with Family Occupation: Unemployed ED ROS GENERAL - Review of Systems Review Of Systems: Comprehensive ROS is negative, except as noted in HPI. ED EXAM, GI/ABD - Physical Exam Exam: See Below Exam Limited By: No Limitations General Appearance: Alert, WD/WN, Mild Distress (appears to be in pain and vomited during my evaluation) Eyes: Bilateral: Normal Appearance, EOMI Ears: Normal External Exam, Hearing Grossly Normal Nose: Normal Inspection Throat/Mouth: Normal Inspection, Normal Lips, Normal Voice, No Airway Compromise Head: Atraumatic, Normocephalic Neck: Normal Inspection, Full Range of Motion Respiratory/Chest: No Respiratory Distress, Lungs Clear, Normal Breath Sounds, No Accessory Muscle Use Cardiovascular: Normal Peripheral Pulses, Regular Rate, Rhythm, No Gallop, No JVD, No Murmur, No Rub GI/Abdominal Exam: No Distention, No Abnormal Bruit, No Mass, Tender (generalized, non-focal), Abnormal Bowel Sounds (no bowel sounds heard) Extremities: Normal Inspection, Normal Range of Motion, Normal Capillary Refill Neurological: Alert, Oriented, Normal Cognition, No Motor/Sensory Deficits Psychiatric: Normal Affect Skin Exam: Warm, Dry, Intact, Normal Color, No Rash Course - Vital Signs Last Recorded V/S: Last Vital Signs Temp 38.8 C H 08/09/20 23:14 Pulse 129 H 08/09/20 23:14 Resp 18 08/09/20 23:14 BP 134/100 H 08/09/20 23:14 Pulse Ox 97 08/09/20 23:14 - Orders/Labs/Meds Orders: Active Orders 24 hr Category Date Time Status Abdomen Pelvis w Cont [CT] Stat Exams 08/09/20 19:39 Taken CULTURE BLOOD [BC] Stat Lab 08/09/20 23:30 Received CULTURE BLOOD [BC] Stat Lab 08/09/20 23:35 Received Levofloxacin/Dextrose 5%-Water [Levaquin in D5W 750 MG/ Med 08/09/20 23:17 Active 150 ML] 750 mg Premix Bag 1 bag IV ONETIME Sodium Chloride 0.9% [Normal Saline] 1,000 ml Med 08/09/20 19:45 Active IV ASDIRECTED Blood Culture x2 Reflex Set [OM.PC] Stat Oth 08/09/20 23:16 Ordered Medication Orders Sodium Chloride (Normal Saline) 1,000 mls @ 150 mls/hr IV ASDIRECTED EVAN Last Admin: 08/09/20 19:57 Dose: 150 mls/hr Documented by: HERMMIC Levofloxacin/Dextrose 750 mg/ (Premix) 150 mls @ 100 mls/hr IV ONETIME STA Stop: 08/10/20 00:46 Last Admin: 08/09/20 23:42 Dose: 100 mls/hr Documented by: HERMMIC Labs: Laboratory Tests 08/09/20 08/09/20 08/09/20 Range/Units 19:55 19:55 22:43 WBC 7.06 (4.23-9.07) K/mm3 RBC 3.38 L (4.63-6.08) M/mm3 Hgb 8.6 L (13.7-17.5) gm/dl Hct 30.5 L (40.1-51.0) % MCV 90.2 (79.0-92.2) fl MCH 25.4 L (25.7-32.2) pg MCHC 28.2 L (32.2-35.5) g/dl RDW Std Deviation 60.3 H (35.1-43.9) fL Plt Count 273 (163-337) K/mm3 MPV 12.4 H (9.4-12.3) fl Neutrophils % (Manual) 70 H (40-60) % Band Neutrophils % 0 (0-10) % Lymphocytes % (Manual) 16 L (20-40) % Atypical Lymphs % 0 % Monocytes % (Manual) 14 H (2-10) % Eosinophils % (Manual) 0 L (0.8-7.0) % Basophils % (Manual) 0 L (0.2-1.2) Platelet Estimate Adequate Hypochromasia 2+ moderate Anisocytosis 2+ moderate RBC Morph Comment Abnormal Sodium 140 (136-145) mEq/L Potassium 3.7 (3.5-5.1) mEq/L Chloride 103 (98-107) mEq/L Carbon Dioxide 25 (21-32) mEq/L Anion Gap 15.7 H (5-15) BUN 22 H (7-18) mg/dL Creatinine 0.5 L (0.7-1.3) mg/dL Est Cr Clr Drug Dosing 214.70 mL/min Estimated GFR (MDRD) > 60 (>60) mL/min BUN/Creatinine Ratio 44.0 H (14-18) Glucose 87 (74-106) mg/dL Calcium 9.0 (8.5-10.1) mg/dL Magnesium 1.9 (1.8-2.4) mg/dl Total Bilirubin 0.6 (0.2-1.0) mg/dL AST 56 H (15-37) U/L ALT 28 (16-63) U/L Alkaline Phosphatase 170 H (46-116) U/L Total Protein 6.8 (6.4-8.2) g/dl Albumin 2.2 L (3.4-5.0) g/dl Globulin 4.6 gm/dL Albumin/Globulin Ratio 0.5 L (1-2) SARS-CoV-2 RNA (MARI) Negative (NEGATIVE) Meds: Medications Generic Name Dose Route Start Last Admin Trade Name Freq PRN Reason Stop Dose Admin Sodium Chloride 1,000 mls @ 150 mls/hr 08/09/20 19:45 08/09/20 19:57 Normal Saline IV 150 mls/hr ASDIRECTED EVAN Administration Levofloxacin/Dextrose 750 mg/ 150 mls @ 100 mls/hr 08/09/20 23:17 08/09/20 23:42 Premix IV 08/10/20 00:46 100 mls/hr ONETIME STA Administration Discontinued Medications Generic Name Dose Route Start Last Admin Trade Name Peggy PRN Reason Stop Dose Admin Hydromorphone HCl 1 mg 08/09/20 19:40 08/09/20 19:58 Hydromorphone 1 Mg/Ml Syringe IVPUSH 08/09/20 19:41 1 mg ONETIME ONE Administration Hydromorphone HCl 1 mg 08/09/20 21:45 08/09/20 22:13 Hydromorphone 1 Mg/Ml Syringe IVPUSH 08/09/20 21:46 1 mg ONETIME ONE Administration Hydromorphone HCl 1 mg 08/09/20 23:05 08/09/20 23:41 Hydromorphone 1 Mg/Ml Syringe IVPUSH 08/09/20 23:06 1 mg ONETIME ONE Administration Metoclopramide HCl 10 mg 08/09/20 21:45 08/09/20 22:13 Metoclopramide 10 Mg/2 Ml Sdv IVPUSH 08/09/20 21:46 10 mg ONETIME STA Administration Ondansetron HCl 4 mg 08/09/20 19:40 08/09/20 19:58 Ondansetron 4 Mg/2 Ml Sdv IVPUSH 08/09/20 19:41 4 mg ONETIME ONE Administration - Re-Assessments/Exams Free Text/Narrative Re-Assessment/Exam: 08/09/20 19:41 As above, the patient has stage IV adenocarcinoma of the abdomen, with waxing and waning abdominal and back pain since February, worse today than usual, along with nausea and vomiting. He also reports that he has not had a bowel movement since last Monday. On examination, I hear no bowel sounds. I have ordered a work-up that includes several blood tests, and a CT of the abdomen and pelvis with IV contrast. In the meantime, the patient will be given IV Dilaudid, IV Zofran, and IV fluid. 08/09/20 21:51 The patient's CBC is remarkable for an H/H depressed at 8.6/30.5, with the remainder of his CBC being unremarkable. His CMP is remarkable for an anion gap slightly elevated at 15.7, but with a bicarbonate normal at 25. His BUN is slightly elevated at 22, with a Cr normal at 0.5. His AST is slightly elevated at 56, with an ALT normal at 28, and his alkaline phosphatase is mildly elevated at 170, with the remainder of his CMP being unremarkable. His magnesium level is within normal limits at 1.9. 08/09/20 22:00 CT of the abdomen and pelvis with IV contrast is read by [facility] as: 1. Abnormal gas pattern. Partial/early proximal small bowel obstruction when questioned. 2. There are large bilateral pleural effusions with significant areas of atelectasis at the bases. 3. Epicardial/omental/mesenteric abnormalities suspect for diffuse metastatic disease. 4. Stable pre rectal [sic] fluid collection, smoothly marginated, is is [sic] of unknown significance. 5. Probable hepatic metastatic disease. Pattern stable 6. Diffuse edematous state is a suspect. 7. Other findings as described 08/09/20 22:37 Test results discussed with the patient and his mother. A small bowel obstruction would explain the patient's abdominal pain, nausea, and vomiting. I believe the patient is too complicated for admission to this hospital, therefo re I am recommending transfer to [place]. The patient prefers [facility] in [place]. 08/09/20 22:48 Case discussed with Rosey at [facility] at 22:42. Case then discussed with Dr. Lewis, Hospitalist at [facility], at 22:45. He accepted the patient for admission to their facility. The patient will be transported by ground ambulance. The CT images were pushed to [facility]. 08/09/20 23:14 Notified by Dilia GROVES that the patient has developed a fever of 102 degrees. I will order 2 sets of blood cultures and start the patient on IV Levaquin. Departure - Departure Time of Disposition: 22:49 Disposition: DC/Tfer to [facility] 02 Condition: Fair Clinical Impression: Cancer of abdomen, Partial small bowel obstruction, Nausea & vomiting Abdominal pain Qualifiers: Abdominal location: generalized Qualified Code(s): R10.84 - Generalized abdominal pain - Discharge Information *PRESCRIPTION DRUG MONITORING PROGRAM REVIEWED*: Not Applicable *COPY OF PRESCRIPTION DRUG MONITORING REPORT IN PATIENT SIMONE: Not Applicable Referrals: Narayan Robles NP [Primary Care Provider] - Kwesi Johnston MD [Ordering Only Provider] - Forms: ED Department Discharge Sepsis Event Note (ED) - Evaluation Sepsis Screening Result: No Definite Risk - Focused Exam Vital Signs: Vital Signs Temp Pulse Resp BP BP Pulse Ox 08/09/20 23:14 38.8 C H 129 H 18 134/100 H 97 08/09/20 19:14 37.2 C 131 H 22 H 114/81 99 - My Orders Last 24 Hours: My Active Orders 08/09/20 19:39 Abdomen Pelvis w Cont [CT] Stat 08/09/20 19:45 Sodium Chloride 0.9% [Normal Saline] 1,000 ml IV ASDIRECTED 08/09/20 23:16 Blood Culture x2 Reflex Set [OM.PC] Stat 08/09/20 23:17 Levofloxacin/Dextrose 5%-Water [Levaquin in D5W 750 MG/150 ML] 750 mg Premix Bag 1 bag IV ONETIME 08/09/20 23:30 CULTURE BLOOD [BC] Stat 08/09/20 23:35 CULTURE BLOOD [BC] Stat - Assessment/Plan Last 24 Hours: My Active Orders 08/09/20 19:39 Abdomen Pelvis w Cont [CT] Stat 08/09/20 19:45 Sodium Chloride 0.9% [Normal Saline] 1,000 ml IV ASDIRECTED 08/09/20 23:16 Blood Culture x2 Reflex Set [OM.PC] Stat 08/09/20 23:17 Levofloxacin/Dextrose 5%-Water [Levaquin in D5W 750 MG/150 ML] 750 mg Premix Bag 1 bag IV ONETIME 08/09/20 23:30 CULTURE BLOOD [BC] Stat 08/09/20 23:35 CULTURE BLOOD [BC] Stat
[2020-08-09] MEDS ORDERED: Metoclopramide 10 MG/2 ML SDV IVPUSH STA (21:45)
[2020-08-09 23:15] VITALS: BP 134/100; PULSE 129
[2020-08-09] MEDS ORDERED: Levofloxacin/Dextrose 5%-Water 750 MG in Premix Bag 1 BAG IV STA (23:17)
--- NOTE | 2020-08-10 07:42 | CT ---
CT abdomen and pelvis Technique: Multiple axial sections were obtained from above the dome of the diaphragm inferiorly through the pubic symphysis. Intravenous contrast was utilized. No oral contrast has been given. Reconstructed coronal and sagittal images were obtained as well as delayed images. Comparison: Prior CT abdomen and pelvis exam of 08/03/20. Findings: Moderate bilateral pleural effusions are noted. Slight atelectasis is noted within both posterior lung bases. Scattered areas of low density are noted within the left lobe of the liver. There may be slight extension outside the liver. These appear to be fairly similar to prior exam. Right lobe shows no discrete abnormality. Spleen is enlarged. Adrenal glands show no nodule. Gallbladder contains no calcified gallstones. Pancreas appears atrophied without discrete focal abnormality. Large lymph node is noted within the upper retroperitoneum. Stable lymph node is noted next to the inferior and anterior heart and next to the right diaphragm. There is omental caking being seen within the upper abdomen. This is stable from prior exam. Diffuse ascites is seen within the abdomen or pelvis which is stable. Multiple lymph nodes are noted within the mesentery. Slightly unusual bowel gas pattern is seen. This may relate to ascites but difficult to exclude a mild early partial bowel obstruction. Delayed images show contrast excretion into the ureters and into the bladder. No acute osseous abnormality is appreciated. Impression: 1. Stable mass within the left lobe of the liver. Omental caking is seen as well as multiple mesenteric lymph nodes. Other adenopathy as noted above. 2. Bilateral pleural effusions with bibasilar atelectasis. Ascites is seen within the abdomen and pelvis. 3. Slightly abnormal small bowel pattern. Difficult to exclude a mild partial small bowel obstruction versus change from ascites. 4. Other findings as noted above which are stable. Diagnostic code #9 I agree with preliminary report from [facility], finalized on 08/09/20, 10:55 PM CDT, code #1
== END 2020-08-10 00:05 ==
LOC: JD.ED 18:58
DX: K56.600 Partial intestinal obstruction, unspecified as to cause (principal); C76.2 Malignant neoplasm of abdomen; R11.2 Nausea with vomiting, unspecified; I10 Essential (primary) hypertension; K21.9 Gastro-esophageal reflux disease without esophagitis; E66.9 Obesity, unspecified; Z68.38 Body mass index [BMI] 38.0-38.9, adult; Z88.0 Allergy status to penicillin; Z88.8 Allergy status to other drugs, medicaments and biological substances; Z91.048 Other nonmedicinal substance allergy status; Z79.01 Long term (current) use of anticoagulants; Z79.899 Other long term (current) drug therapy; Z20.822 Contact with and (suspected) exposure to COVID-19
CPT/HCPCS: 36415; 74177; 80053; 83735; 85007; 85027; 87040; 87635; 96365; 96375; 96376; 99285; J1170; J1956; J2405; J2765; J7030; U0002

== ENCOUNTER 2020-08-18 17:26 | Emergency (ER) | payer BC ==
[2020-08-18 17:32] VITALS: BP 138/97; PULSE 118
--- NOTE | 2020-08-18 17:52 | EDM.PDOC ---
ED HPI GENERAL MEDICAL PROBLEM - General Chief Complaint: Chest Pain Stated Complaint: [facility] Time Seen by Provider: 08/18/20 17:50 - History of Present Illness INITIAL COMMENTS - FREE TEXT/NARRATIVE: 29-year-old male presents the emergency room with abdominal pain. Patient is looking for better pain control. 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 The patient was discharged from [facility] [place] where he received mostly IV pain medication he was admitted with a suspected bowel obstruction and had a pneumonia. He was admitted there after being evaluated here on the . Today with his oral pain medications and his fentanyl patch she is not been able to control his pain. He was informed by his oncology group that they really had nothing else to offer him and recommended hospice. However, he would like to try a few more options and has a home palliative care company coming in to try and put together a treatment plan for him. He has not had any recent fevers or chills the patient is unable to eat by mouth gets all his nutrition from [facility] through a PICC line. chest Pain Score (Numeric/FACES): 6 - Related Data Allergies Allergy/AdvReac Type Severity Reaction Status Date / Time Penicillins Allergy Intermediate Hives Verified 08/18/20 17:32 pseudoephedrine Allergy Unknown Other Verified 08/18/20 17:32 lactose AdvReac Intermediate Vomiting Verified 08/18/20 17:32 Home Meds: Home Meds Cyclobenzaprine [Flexeril] 10 mg PO BID PRN 04/20/20 [History] Dicyclomine [Bentyl] 20 mg PO QID 05/29/20 [History] Escitalopram [Lexapro] 10 mg PO DAILY 05/29/20 [History] LORazepam [Ativan] 0.5 mg PO ASDIRECTED 05/29/20 [History] Loperamide [Imodium] 2 mg PO ASDIRECTED PRN 05/29/20 [History] Promethazine [Phenergan] 25 mg TOP Q6H PRN 05/29/20 [History] fentaNYL [Duragesic] 25 mcg TD Q72H 05/29/20 [History] Apixaban [Eliquis] 5 mg PO BID 07/01/20 [History] Cannabidiol (Cbd) Extract [CBD Oil] 1 dose PO ASDIRECTED PRN 07/01/20 [History] Furosemide [Lasix] 40 mg PO DAILY 08/03/20 [History] Melatonin 5 mg PO BEDTIME 08/03/20 [History] Mirtazapine [Remeron] 15 mg PO BEDTIME 08/03/20 [History] Ondansetron [Zofran ODT] 4 mg SL QID PRN 08/03/20 [History] amLODIPine [Norvasc] 10 mg PO DAILY 08/03/20 [History] hydrALAZINE [Apresoline] 25 mg PO TID 08/03/20 [History] oxyCODONE HCl [Oxycontin] 30 mg PO BID PRN 08/03/20 [History] Lactulose 15 ml PO DAILY 08/09/20 [History] Past Medical History Cardiovascular History: Reports: Hypertension Other Cardiovascular History: 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-getting lovenox shots, tachycardia Gastrointestinal History: Reports: GERD Other Gastrointestinal History: umbilical hernia, ascities with paracentesis performed, adenocarcinoma with paratenial spread stage 4 Musculoskeletal History: Reports: Fracture Psychiatric History: Reports: Anxiety, Depression Endocrine/Metabolic History: Reports: Obesity/BMI 30+ Hematologic History: Reports: Anticoagulation Therapy Oncologic (Cancer) History: Reports: Other (See Below) Other Oncologic History: lymph node of abdominal wall. adenocarcinoma with paratineal spread stage 4 - Past Surgical History HEENT Surgical History: Reports: Adenoidectomy, Tonsillectomy Cardiovascular Surgical History: Reports: Other (See Below) GI Surgical History: Reports: Colonoscopy, EGD Other GI Surgeries/Procedures: sx attempted to place feeding tube but unsucessfull. Other Oncologic Surgeries/Procedures: reports GI cancer Social & Family History - Family History Family Medical History: No Pertinent Family History - Tobacco Use Tobacco Use Status *Q: Never Tobacco User - Caffeine Use Caffeine Use: Reports: None - Recreational Drug Use Recreational Drug Type: Reports: Marijuana/Hashish - Living Situation & Occupation Living situation: Reports: , with Family Occupation: Unemployed ED ROS GENERAL - Review of Systems Review Of Systems: See Below Constitutional: Reports: No Symptoms HEENT: Reports: No Symptoms Respiratory: Denies: Shortness of Breath Cardiovascular: Reports: No Symptoms GI/Abdominal: Reports: Abdominal Pain, Constipation : Reports: No Symptoms Musculoskeletal: Reports: No Symptoms Skin: Reports: No Symptoms Neurological: Reports: No Symptoms ED EXAM, GENERAL - Physical Exam Exam: See Below Exam Limited By: No Limitations General Appearance: Alert, No Apparent Distress, Other (He did receive a milligram of Dilaudid in route here and this is helped some but not completely) Head: Atraumatic, Normocephalic Neck: Normal Inspection, Supple, Non-Tender, Full Range of Motion Respiratory/Chest: No Respiratory Distress, Lungs Clear, Normal Breath Sounds Cardiovascular: Regular Rate, Rhythm, No Edema, No Murmur GI/Abdominal: Normal Bowel Sounds, Soft, Tender (He has generalized tenderness no rigidity rebound or guarding) Back Exam: Normal Inspection. No: CVA Tenderness (L), CVA Tenderness (R) Neurological: Alert, Oriented #1 Interpretation EKG Date: 08/18/20 Rhythm: Other (Sinus tach) Rate (Beats/Min): 113 [place]: Normal P-Wave: Present QRS: Other (Normal morphology early transition) ST-T: Normal QT: Normal Comparison: NA - No Prior EKG EKG Interpretation Comments: Abnormal EKG Sinus tachycardia Course - Vital Signs Last Recorded V/S: Last Vital Signs Temp 36.7 C 08/18/20 17:27 Pulse 118 H 08/18/20 17:27 Resp 17 08/18/20 17:27 BP 138/97 H 08/18/20 17:27 Pulse Ox 98 08/18/20 17:27 - Orders/Labs/Meds Orders: Active Orders 24 hr Category Date Time Status EKG 12 Lead [EKG Documentation Completion] [RC] STAT Care 08/18/20 17:29 Active UA RFX DUNG AND CULT IF INDIC [URIN] Stat Lab 08/18/20 18:20 Ordered Sodium Chloride 0.9% [Saline Flush] Med 08/18/20 18:30 Active 10 ml FLUSH ASDIRECTED Medication Orders Sodium Chloride (Sodium Chloride 0.9% 10 Ml Syringe) 10 ml FLUSH ASDIRECTED EVAN Last Admin: 08/18/20 19:42 Dose: 10 ml Documented by: RON Labs: Laboratory Tests 08/18/20 08/18/20 Range/Units 18:58 18:58 WBC 10.98 H (4.23-9.07) K/mm3 RBC 3.48 L (4.63-6.08) M/mm3 Hgb 8.8 L (13.7-17.5) gm/dl Hct 31.1 L (40.1-51.0) % MCV 89.4 (79.0-92.2) fl MCH 25.3 L (25.7-32.2) pg MCHC 28.3 L (32.2-35.5) g/dl RDW Std Deviation 57.1 H (35.1-43.9) fL Plt Count 216 (163-337) K/mm3 MPV 12.3 (9.4-12.3) fl Neut % (Auto) 80.4 H (34.0-67.9) % Lymph % (Auto) 9.0 L (21.8-53.1) % [place] % (Auto) 9.8 (5.3-12.2) % Eos % (Auto) 0.3 L (0.8-7.0) Baso % (Auto) 0.1 (0.1-1.2) % Neut # (Auto) 8.83 H (1.78-5.38) K/mm3 Lymph # (Auto) 0.99 L (1.32-3.57) K/mm3 [place] # (Auto) 1.08 H (0.30-0.82) K/mm3 Eos # (Auto) 0.03 L (0.04-0.54) K/mm3 Baso # (Auto) 0.01 (0.01-0.08) K/mm3 Manual Slide Review Abnormal smear Sodium 140 (136-145) mEq/L Potassium 3.2 L (3.5-5.1) mEq/L Chloride 102 (98-107) mEq/L Carbon Dioxide 30 (21-32) mEq/L Anion Gap 11.2 (5-15) BUN 16 (7-18) mg/dL Creatinine 0.5 L (0.7-1.3) mg/dL Est Cr Clr Drug Dosing 229.14 mL/min Estimated GFR (MDRD) > 60 (>60) mL/min BUN/Creatinine Ratio 32.0 H (14-18) Glucose 96 (74-106) mg/dL Calcium 8.5 (8.5-10.1) mg/dL Total Bilirubin 0.6 (0.2-1.0) mg/dL AST 56 H (15-37) U/L ALT 25 (16-63) U/L Alkaline Phosphatase 139 H (46-116) U/L Total Protein 6.4 (6.4-8.2) g/dl Albumin 2.1 L (3.4-5.0) g/dl Globulin 4.3 gm/dL Albumin/Globulin Ratio 0.5 L (1-2) Meds: Medications Generic Name Dose Route Start Last Admin Trade Name Freq PRN Reason Stop Dose Admin Sodium Chloride 10 ml 08/18/20 18:30 08/18/20 19:42 Sodium Chloride 0.9% 10 Ml Syringe FLUSH 10 ml ASDIRECTED EVAN Administration Discontinued Medications Generic Name Dose Route Start Last Admin Trade Name Freq PRN Reason Stop Dose Admin Hydromorphone HCl 1 mg 08/18/20 18:01 08/18/20 18:10 Hydromorphone 1 Mg/Ml Syringe IVPUSH 08/18/20 18:02 1 mg ONETIME ONE Administration Hydromorphone HCl 1 mg 08/18/20 20:35 Hydromorphone 1 Mg/Ml Syringe IVPUSH 08/18/20 20:36 ONETIME ONE Iopamidol 50 ml 08/18/20 18:21 08/18/20 19:42 Iopamidol 612 Mg/Ml 50 Ml Sdv IVPUSH 08/18/20 18:22 50 ml ONETIME ONE Administration Iopamidol 100 ml 08/18/20 18:21 08/18/20 19:42 Iopamidol 612 Mg/Ml 100 Ml Bottle IVPUSH 08/18/20 18:22 100 ml ONETIME ONE Administration Ondansetron HCl 4 mg 08/18/20 18:01 08/18/20 18:19 Ondansetron 4 Mg/2 Ml Sdv IVPUSH 08/18/20 18:02 4 mg ONETIME ONE Administration - Re-Assessments/Exams Free Text/Narrative Re-Assessment/Exam: 08/18/20 19:08 Patient received 1 mg of Dilaudid in route by EMS we will give another 1/2 mg and then repeated if necessary. We will check a CT of his abdomen and include the chest to make sure nothing else is going on. 08/18/20 20:38 We will give the patient another milligram of Dilaudid at this point his CT shows no acute changes in his abdomen compared to his prior study on the 12th of this month. He has ascites which appears stable and metastatic liver lesions which appear stable and stable appearing omental caking. Chest CT T shows moderate to large bilateral pleural effusions the patient is in no respiratory distress and he has good O2 saturation. I discussed the findings with this with the patient. Discussed the pros and cons of going to [place] which he is really not eager to do. There is no clear medical reason to do a thoracentesis at this time he is breathing okay is maintaining well with what he is got the other problem is he is good skin have reaccumulation with this. Tomorrow he is supposed to meet with the palliative care group to come up with a better home treatment option for his discomfort. After thorough discussion we will discharge him home we will give him another milligram of Dilaudid at this point the patient got through last night without too much difficulty with increasing his OxyIR to 20 mg every 4 hours from 10 which she has been instructed that he could do. Departure - Departure Time of Disposition: 20:41 Disposition: Home, Self-Care 01 Clinical Impression: Adenocarcinoma carcinomatosis, Bilateral pleural effusion - Discharge Information Instructions: Pleural Effusion Referrals: Narayan Robles, PHLEBOTOMY TECHNICIAN [Primary Care Provider] - Forms: ED Department Discharge Additional Instructions: Return to the emergency room with any questions problems or worsening symptoms. Follow-up with your cancer doctors and the people you have set up to drain the fluid around your lungs if you think it is essential. Use your OxyIR 20 mg every 4 hours as you have been instructed to in the past. Meet with the palliative care folks tomorrow as scheduled. Sepsis Event Note (ED) - Evaluation Sepsis Screening Result: No Definite Risk - Focused Exam Vital Signs: Vital Signs Temp Pulse Resp BP Pulse Ox 08/18/20 17:27 36.7 C 118 H 17 138/97 H 98 - My Orders Last 24 Hours: My Active Orders 08/18/20 17:29 EKG 12 Lead [EKG Documentation Completion] [RC] STAT 08/18/20 18:20 UA RFX DUNG AND CULT IF INDIC [URIN] Stat 08/18/20 18:30 Sodium Chloride 0.9% [Saline Flush] 10 ml FLUSH ASDIRECTED - Assessment/Plan Last 24 Hours: My Active Orders 08/18/20 17:29 EKG 12 Lead [EKG Documentation Completion] [RC] STAT 08/18/20 18:20 UA RFX DUNG AND CULT IF INDIC [URIN] Stat 08/18/20 18:30 Sodium Chloride 0.9% [Saline Flush] 10 ml FLUSH ASDIRECTED
[2020-08-18] MEDS ORDERED: Ondansetron 4 MG/2 ML SDV IVPUSH ONE (18:01)
[2020-08-18] MEDS ORDERED: HYDROmorphone 1 MG/ML Syringe IVPUSH ONE ×2 (18:01→20:35)
[2020-08-18] MEDS ORDERED: Iopamidol 612 MG/ML 100 ML Bottle IVPUSH ONE (18:21)
[2020-08-18] MEDS ORDERED: Iopamidol 612 MG/ML 50 ML SDV IVPUSH ONE (18:21)
[2020-08-18] MEDS ORDERED: Sodium Chloride 0.9% 10 ML Syringe FLUSH SCH (18:30)
--- NOTE | 2020-08-18 20:02 | CT ---
CT chest Technique: Multiple axial sections through the chest were obtained. Intravenous contrast was utilized. Reconstructed coronal and sagittal images were obtained. Comparison: No prior chest CT is available, prior chest x-ray of 08/03/20. Findings: Moderately large bilateral pleural effusions are seen on both sides of the chest. Atelectasis is seen adjacent to the pleural effusions. Lungs otherwise are clear. Thoracic aorta shows no aneurysm. Mediastinal and hilar regions show no discrete adenopathy. No axillary adenopathy is seen. No pericardial thickening is seen. Bone window settings were reviewed which show no acute osseous abnormality. Impression: 1. Moderate to large bilateral pleural effusions with adjacent atelectasis on both sides of the chest. 2. No additional abnormality is appreciated. Diagnostic code #3 CT abdomen and pelvis Technique: Multiple axial sections were obtained from above the dome of the diaphragm inferiorly through the pubic symphysis. Intravenous contrast was utilized. No oral contrast was given. Reconstructed coronal and sagittal images were obtained. Comparison: Prior CT abdomen and pelvis exam of 08/10/19. Findings: Left lobe of the liver shows a lesion. This finding is stable from prior study and presumably is metastatic. Spleen is enlarged but is stable. Adrenal glands show no lung nodule. Pancreas is not well identified but shows no discrete abnormality. Gallbladder contains no calcified gallstones. Kidneys show symmetric contrast enhancement without hydronephrosis or mass. Aorta shows no aneurysm. No retroperitoneal adenopathy is seen. There is omental caking felt to be present within the abdomen which is stable from previous exam. Ascites is seen which is stable from prior exam. No pelvic mass or adenopathy is seen. Subcutaneous edema and some skin thickening is seen. Delayed images show contrast within the distal ureters and within the bladder. Bowel gas pattern appears similar to previous exam with no findings of definite obstruction. Bone window settings were reviewed which show no acute osseous finding. Impression: 1. Ascites which is fairly stable from prior exam. 2. Metastatic liver lesion which is also stable. Stable omental caking. 3. Other findings as noted above. No acute abnormality is otherwise seen. Diagnostic code #9
== END 2020-08-18 21:00 | disposition home or self-care (01) ==
LOC: JD.ED 17:26
DX: J90 Pleural effusion, not elsewhere classified (principal); C80.0 Disseminated malignant neoplasm, unspecified; I10 Essential (primary) hypertension; K21.9 Gastro-esophageal reflux disease without esophagitis; E66.9 Obesity, unspecified; Z68.37 Body mass index [BMI] 37.0-37.9, adult; Z88.0 Allergy status to penicillin; Z91.011 Allergy to milk products; Z88.8 Allergy status to other drugs, medicaments and biological substances
CPT/HCPCS: 36415; 71260; 74177; 80053; 85025; 93005; 96374; 96375; 96376; 99285; J1170; J2405; Q9967; 93010; 99284

== ENCOUNTER 2020-08-19 14:52 | Observation (INO) | payer BC ==
[2020-08-19] MEDS ORDERED: HYDROmorphone 1 MG/ML Syringe IVPUSH ONE ×2 (15:33→17:13)
--- NOTE | 2020-08-19 15:35 | EDM.PDOC ---
ED HPI GENERAL MEDICAL PROBLEM - General Chief Complaint: Abdominal Pain Stated Complaint: [facility] Time Seen by Provider: 08/19/20 15:33 - History of Present Illness INITIAL COMMENTS - FREE TEXT/NARRATIVE: 29-year-old male returns the emergency room brought in by EMS after home health palliative care advised him to do so as they cannot put him on hospice yet because his regular healthcare provider is not available. It is their intention to try and get adequate pain control and then get the orders for a intravenous pain pump. Patient has end-stage adenocarcinoma carcinomatosis. I evaluated this patient last evening knowing he had the meeting with the home health palliative care folks this afternoon. CT evaluation shows stable abdomen nominal status as far as liver tumors and omental matting. He has moderate to large pleural effusions noted bilaterally apparently 1 of these was drained in [place] last week. Apparently he has been told by his oncology group at [place] that they have nothing else to offer him. Abdominal Pain Score (Numeric/FACES): 7 - Related Data Allergies Allergy/AdvReac Type Severity Reaction Status Date / Time Penicillins Allergy Intermediate Hives Verified 08/18/20 17:32 pseudoephedrine Allergy Unknown Other Verified 08/18/20 17:32 Home Meds: Home Meds Cyclobenzaprine [Flexeril] 10 mg PO BID PRN 04/20/20 [History] Dicyclomine [Bentyl] 20 mg PO QID 05/29/20 [History] Escitalopram [Lexapro] 10 mg PO DAILY 05/29/20 [History] LORazepam [Ativan] 0.5 mg PO ASDIRECTED 05/29/20 [History] Loperamide [Imodium] 2 mg PO ASDIRECTED PRN 05/29/20 [History] Promethazine [Phenergan] 25 mg TOP Q6H PRN 05/29/20 [History] fentaNYL [Duragesic] 25 mcg TD Q72H 05/29/20 [History] Apixaban [Eliquis] 5 mg PO BID 07/01/20 [History] Cannabidiol (Cbd) Extract [CBD Oil] 1 dose PO ASDIRECTED PRN 07/01/20 [History] Furosemide [Lasix] 40 mg PO DAILY 08/03/20 [History] Melatonin 5 mg PO BEDTIME 08/03/20 [History] Mirtazapine [Remeron] 15 mg PO BEDTIME 08/03/20 [History] Ondansetron [Zofran ODT] 4 mg SL QID PRN 08/03/20 [History] amLODIPine [Norvasc] 10 mg PO DAILY 08/03/20 [History] hydrALAZINE [Apresoline] 25 mg PO TID 08/03/20 [History] oxyCODONE HCl [Oxycontin] 30 mg PO BID PRN 08/03/20 [History] Lactulose 15 ml PO DAILY 08/09/20 [History] Past Medical History Cardiovascular History: Reports: Hypertension Other Cardiovascular History: 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-getting lovenox shots, tachycardia Gastrointestinal History: Reports: GERD Other Gastrointestinal History: umbilical hernia, ascities with paracentesis performed, adenocarcinoma with paratenial spread stage 4 Musculoskeletal History: Reports: Fracture Psychiatric History: Reports: Anxiety, Depression Endocrine/Metabolic History: Reports: Obesity/BMI 30+ Hematologic History: Reports: Anticoagulation Therapy Oncologic (Cancer) History: Reports: Other (See Below) Other Oncologic History: lymph node of abdominal wall. adenocarcinoma with paratineal spread stage 4 - Past Surgical History HEENT Surgical History: Reports: Adenoidectomy, Tonsillectomy Cardiovascular Surgical History: Reports: Other (See Below) GI Surgical History: Reports: Colonoscopy, EGD Other GI Surgeries/Procedures: sx attempted to place feeding tube but unsucessfull. Other Oncologic Surgeries/Procedures: reports GI cancer Social & Family History - Family History Family Medical History: No Pertinent Family History - Caffeine Use Caffeine Use: Reports: None - Living Situation & Occupation Living situation: Reports: , with Family Occupation: Unemployed ED ROS GENERAL - Review of Systems Review Of Systems: See Below Constitutional: Reports: Weakness. Denies: Fever, Chills HEENT: Reports: No Symptoms Respiratory: Reports: No Symptoms Cardiovascular: Reports: Chest Pain GI/Abdominal: Reports: Abdominal Pain, Constipation, Nausea, Vomiting Neurological: Denies: Confusion, Dizziness ED EXAM, GENERAL - Physical Exam Exam: See Below Exam Limited By: No Limitations General Appearance: Alert, Mild Distress (From the pain) Respiratory/Chest: No Respiratory Distress, Lungs Clear, Normal Breath Sounds (Is diminished in the bases) Cardiovascular: Regular Rate, Rhythm, No Murmur, No Rub Course - Vital Signs Last Recorded V/S: Last Vital Signs Temp 36.4 C 08/19/20 14:55 Pulse 115 H 08/19/20 14:55 Resp 16 08/19/20 14:55 BP 141/96 H 08/19/20 14:55 Pulse Ox 92 L 08/19/20 14:55 - Orders/Labs/Meds Meds: Medications Discontinued Medications Generic Name Dose Route Start Last Admin Trade Name Peggy PRN Reason Stop Dose Admin Hydromorphone HCl 1 mg 08/19/20 15:33 08/19/20 15:53 Hydromorphone 1 Mg/Ml Syringe IVPUSH 08/19/20 15:34 1 mg ONETIME ONE Administration Hydromorphone HCl 1 mg 08/19/20 17:13 Hydromorphone 1 Mg/Ml Syringe IVPUSH 08/19/20 17:14 ONETIME ONE Metoclopramide HCl 5 mg 08/19/20 17:10 Metoclopramide 10 Mg/2 Ml Sdv IVPUSH 08/19/20 17:11 ONETIME ONE Ondansetron HCl 4 mg 08/19/20 15:58 08/19/20 16:00 Ondansetron 4 Mg/2 Ml Sdv IVPUSH 08/19/20 15:59 4 mg ONETIME ONE Administration Ondansetron HCl Confirm 08/19/20 15:58 Ondansetron 4 Mg/2 Ml Sdv Administered 08/19/20 15:59 Dose 4 mg .ROUTE .STK-MED ONE - Re-Assessments/Exams Free Text/Narrative Re-Assessment/Exam: 08/19/20 17:18 Patient had a extensive work-up last evening this will not be repeated at this point. Case discussed with Dr. Ortega who is kind enough to place the patient on observation. Departure - Departure Time of Disposition: 17:18 Disposition: Refer to Observation Clinical Impression: Adenocarcinoma carcinomatosis - Discharge Information Referrals: Narayan Robles NP [Primary Care Provider] - Forms: ED Department Discharge Sepsis Event Note (ED) - Evaluation Sepsis Screening Result: No Definite Risk - Focused Exam Vital Signs: Vital Signs Temp Pulse Resp BP Pulse Ox 08/19/20 14:55 36.4 C 115 H 16 141/96 H 92 L
[2020-08-19] MEDS ORDERED: Ondansetron 4 MG/2 ML SDV IVPUSH ONE (15:58)
[2020-08-19] MEDS ORDERED: Ondansetron 4 MG/2 ML SDV ONE (15:58)
[2020-08-19] MEDS ORDERED: Metoclopramide 10 MG/2 ML SDV IVPUSH ONE (17:10)
[2020-08-19] MEDS ORDERED: Albuterol/Ipratropium 3.0-0.5 MG/3 ML Neb Soln NEB PRN (17:39)
[2020-08-19] MEDS ORDERED: hydrALAZINE 20 MG/ML SDV IVPUSH PRN (17:55)
[2020-08-19] MEDS ORDERED: Lactated Ringers 1,000 ML IV SCH (18:00)
[2020-08-19] MEDS ORDERED: AA 5%/Calcium/D20W/Lytes 1,000 ML IV SCH (18:00)
--- NOTE | 2020-08-19 18:19 | PCM.HP.2 ---
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 Patient started to feel abdominal pain in February 2020. 2 weeks ago patient presented to our ER with abdominal pain where patient was found to have partial small bowel obstruction possible due to a malignant tumor. He was transported to [facility] and discharged from the hospital yesterday. During the hospitalization in the hospital, oncology group at the [facility] was consulted. He was determined to have an end stage cancer. Patient saw palliative care physician Dr. Maguire this morning who has accepted this patient for palliative care. As per patient and family, however, the palliative care needs to be approved by his PCP Dr. Narayan Robles and insurance. Dr. Robles is not available today. So patient and the family asked to be admitted to our hospital for pain control and waiting palliative care to be initiated. Other than the abdominal pain which is constant, sharp in nature and 5 out of 10 in severity. He also has nausea and vomiting. His last bowel movement was 5 days ago. Otherwise he denies headache, chest pain, shortness of breath or dysuria. Patient has family (mother) refused further work-up for his cancer and any procedures. They would like to be admitted for pain control only. Abdominal Pain Score (Numeric/FACES): 7 - Related Data Allergies/Adverse Reactions: Allergies Allergy/AdvReac Type Severity Reaction Status Date / Time Penicillins Allergy Intermediate Hives Verified 08/18/20 17:32 pseudoephedrine Allergy Unknown Other Verified 08/18/20 17:32 Home Medications: Home Meds Cyclobenzaprine [Flexeril] 10 mg PO BID PRN 04/20/20 [History] Escitalopram [Lexapro] 10 mg PO DAILY 05/29/20 [History] LORazepam [Ativan] 0.5 mg PO ASDIRECTED 05/29/20 [History] Promethazine [Phenergan] 25 mg TOP Q6H PRN 05/29/20 [History] Apixaban [Eliquis] 5 mg PO BID 07/01/20 [History] Cannabidiol (Cbd) Extract [CBD Oil] 1 dose PO ASDIRECTED PRN 07/01/20 [History] Furosemide [Lasix] 40 mg PO DAILY 08/03/20 [History] Melatonin 5 mg PO BEDTIME 08/03/20 [History] Mirtazapine [Remeron] 15 mg PO BEDTIME 08/03/20 [History] Ondansetron [Zofran ODT] 4 mg SL QID PRN 08/03/20 [History] amLODIPine [Norvasc] 10 mg PO DAILY 08/03/20 [History] hydrALAZINE [Apresoline] 25 mg PO TID 08/03/20 [History] oxyCODONE HCl [Oxycontin] 30 mg PO BID PRN 08/03/20 [History] Pantoprazole [ProTONIX] 1 tab PO BID 08/19/20 [History] Scopolamine [Transderm-Scop] 1 dose TRDERM ASDIRECTED 08/19/20 [History] fentaNYL [Duragesic] 50 mcg TD ASDIRECTED 08/19/20 [History] oxyCODONE 20 mg PO Q4H PRN 08/19/20 [History] oxyCODONE HCl [Oxycontin] 30 mg PO BID PRN 08/19/20 [History] Past Medical History Cardiovascular History: Reports: Hypertension Other Cardiovascular History: 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-getting lovenox shots, tachycardia Gastrointestinal History: Reports: GERD Other Gastrointestinal History: umbilical hernia, ascities with paracentesis performed, adenocarcinoma with paratenial spread stage 4 Musculoskeletal History: Reports: Fracture, Other (See Below) Other Musculoskeletal History: Left foot Psychiatric History: Reports: Anxiety, Depression Endocrine/Metabolic History: Reports: Obesity/BMI 30+ Hematologic History: Reports: Anticoagulation Therapy Oncologic (Cancer) History: Reports: Other (See Below) Other Oncologic History: lymph node of abdominal wall. adenocarcinoma with paratineal spread stage 4 - Past Surgical History HEENT Surgical History: Reports: Adenoidectomy, Tonsillectomy Cardiovascular Surgical History: Reports: Other (See Below) GI Surgical History: Reports: Colonoscopy, EGD Other GI Surgeries/Procedures: sx attempted to place feeding tube but unsucessfull. Other Oncologic Surgeries/Procedures: reports GI cancer Social & Family History - Family History Family Medical History: No Pertinent Family History (Denies genetic diseases in family) - Tobacco Use Tobacco Use Status *Q: Never Tobacco User - Caffeine Use Caffeine Use: Reports: None - Recreational Drug Use Recreational Drug Type: Reports: Marijuana/Hashish Recreational Drug Use Frequency: Daily - Living Situation & Occupation Living situation: Reports: , with Family Occupation: Unemployed H&P Review of Systems - Review of Systems: Review Of Systems: See Below General: Reports: No Symptoms HEENT: Reports: No Symptoms Pulmonary: Reports: No Symptoms Cardiovascular: Reports: No Symptoms Gastrointestinal: Reports: Abdominal Pain, Nausea, Vomiting Genitourinary: Reports: No Symptoms Musculoskeletal: Reports: No Symptoms Skin: Reports: No Symptoms Psychiatric: Reports: No Symptoms Neurological: Reports: No Symptoms Hematologic/Lymphatic: Reports: No Symptoms Immunologic: Reports: No Symptoms Exam - Exam Exam: See Below - Vital Signs Vital Signs: Last Vital Signs Temp 36.4 C 08/19/20 14:55 Pulse 115 H 08/19/20 14:55 Resp 16 08/19/20 14:55 BP 141/96 H 08/19/20 14:55 Pulse Ox 92 L 08/19/20 14:55 Weight: 113.398 kg - Exam General: Alert, Oriented, Cooperative HEENT: Conjunctiva Clear, EOMI, Pupils Equal, Pupils Reactive Neck: Supple, Trachea Midline, Full Range of Motion Lungs: Normal Respiratory Effort, Decreased Breath Sounds Cardiovascular: Regular Rate, Regular Rhythm, Normal S1, Normal S2 GI/Abdominal Exam: Distended, Tender, Abnormal Bowel Sounds Extremities: Normal Inspection, Normal Range of Motion, No Pedal Edema. No: Non-Tender (tenderness, b/l) Skin: Warm, Dry, Intact Neurological: Strength Equal Bilateral, Normal Speech, Normal Tone, Sensation Intact Neuro Extensive - Mental Status: Alert, Oriented x3, Normal Mood/Affect Psychiatric: Normal Mood Sepsis Event Note - Evaluation Sepsis Screening Result: No Definite Risk - Focused Exam Vital Signs: Vital Signs Temp Pulse Resp BP Pulse Ox 08/19/20 14:55 36.4 C 115 H 16 141/96 H 92 L Problem List Initiated/Reviewed/Updated: Yes Orders Last 24hrs: Active Orders 24 hr Category Date Time Status Patient Status [ADT] Routine ADT 08/19/20 17:39 Ordered Accu Check [Blood Glucose Check, Bedside] [RC] Care 08/19/20 17:48 Ordered QIDACANDBED Cardiac Monitoring [RC] CONTINUOUS Care 08/19/20 17:43 Ordered Intake and Output [RC] QSHIFT Care 08/19/20 17:43 Ordered Oxygen Therapy [RC] PRN Care 08/19/20 17:39 Ordered Pulse Oximetry [RC] CONTINUOUS Care 08/19/20 17:43 Ordered RT Aerosol Therapy [RC] ASDIRECTED Care 08/19/20 17:46 Ordered Up to Chair [RC] ASDIRECTED Care 08/19/20 17:39 Ordered VTE/DVT Education [RC] PER UNIT ROUTINE Care 08/19/20 17:39 Ordered Vital Signs [RC] Q4H Care 08/19/20 17:39 Ordered Consult to Air Intelligence Officer [CONS] Routine Cons 08/19/20 17:39 Ordered Nothing per Oral Now Diet [DIET] Diet 08/19/20 Dinner Ordered CBC WITH AUTO DIFF [HEME] DAILY Lab 08/20/20 05:00 Ordered CBC WITH AUTO DIFF [HEME] DAILY Lab 08/21/20 05:00 Ordered CBC WITH AUTO DIFF [HEME] DAILY Lab 08/22/20 05:00 Ordered CBC WITH AUTO DIFF [HEME] DAILY Lab 08/23/20 05:00 Ordered CBC WITH AUTO DIFF [HEME] DAILY Lab 08/24/20 05:00 Ordered CBC WITH AUTO DIFF [HEME] Routine Lab 08/19/20 17:51 Ordered COMPREHENSIVE METABOLIC PN,CMP [CHEM] DAILY Lab 08/20/20 05:00 Ordered COMPREHENSIVE METABOLIC PN,CMP [CHEM] DAILY Lab 08/21/20 05:00 Ordered COMPREHENSIVE METABOLIC PN,CMP [CHEM] DAILY Lab 08/22/20 05:00 Ordered COMPREHENSIVE METABOLIC PN,CMP [CHEM] DAILY Lab 08/23/20 05:00 Ordered COMPREHENSIVE METABOLIC PN,CMP [CHEM] DAILY Lab 08/24/20 05:00 Ordered COMPREHENSIVE METABOLIC PN,CMP [CHEM] Routine Lab 08/19/20 17:51 Ordered CORONAVIRUS COVID-19 MARI [MOLEC] Stat Lab 08/19/20 17:46 Ordered MAGNESIUM [CHEM] Routine Lab 08/19/20 17:39 Ordered PHOSPHORUS [CHEM] Routine Lab 08/19/20 17:39 Ordered TROPONIN I [CHEM] Routine Lab 08/19/20 17:39 Ordered Albuterol/Ipratropium [DuoNeb 3.0-0.5 MG/3 ML] Med 08/19/20 17:39 Ordered 3 ml NEB Q4H PRN Central TPN (Std Protocol) Med 08/19/20 18:00 Ordered AA 5%/Calcium/D20W/Lytes [Clinimix E 09/10] 1,000 ml IV Q24H Enoxaparin [Lovenox] Med 08/19/20 17:45 Ordered 40 mg SUBCUT DAILY HYDROmorphone [Dilaudid] Med 08/19/20 17:39 Ordered 0.5 mg IVPUSH Q2H PRN Lactated Ringers @ 50 MLS/HR(1000ml Bag) Med 08/19/20 18:00 Ordered Lactated Ringers [Ringers, Lactated] 1,000 ml IV ASDIRECTED Morphine Med 08/19/20 17:39 Ordered 2 mg IVPUSH Q4H PRN Ondansetron [Zofran] Med 08/19/20 17:39 Ordered 4 mg IV Q6H PRN hydrALAZINE [Apresoline] Med 08/19/20 17:55 Ordered 10 mg IVPUSH Q4H PRN Resuscitation Status Routine Resus Stat 08/19/20 17:39 Ordered Medication Orders Albuterol/Ipratropium (Albuterol/Ipratropium 3.0-0.5 Mg/3 Ml Neb Soln) 3 ml NEB Q4H PRN PRN Reason: Shortness Of Breath/wheezing Enoxaparin Sodium (Enoxaparin 40 Mg/0.4 Ml Syringe) 40 mg SUBCUT DAILY EVAN Hydralazine HCl (Hydralazine 20 Mg/Ml Sdv) 10 mg IVPUSH Q4H PRN PRN Reason: Hypertension Hydromorphone HCl (Hydromorphone 0.5 Mg/0.5 Ml Syringe) 0.5 mg IVPUSH Q2H PRN PRN Reason: Pain (severe 7-10) Amino Ac/Electrol/Dextrose/Calcium (Clinimix E 09/10) 1,000 mls @ 41.667 mls/hr IV Q24H EVAN; Protocol Lactated Ringer's (Ringers, Lactated) 1,000 mls @ 50 mls/hr IV ASDIRECTED EVAN Morphine Sulfate (Morphine 2 Mg/Ml Syringe) 2 mg IVPUSH Q4H PRN PRN Reason: Pain (moderate 4-6) Stop: 08/20/20 17:45 Ondansetron HCl (Ondansetron 4 Mg/2 Ml Sdv) 4 mg IV Q6H PRN PRN Reason: Nausea/Vomiting Assessment/Plan Comment:: Patient is a 29-year-old male with a 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 Assessment: 1. Metastatic signit ring cell carcinoma 2. Small bowel obstruction, partial? 3. Pleural effusion, bilateral 4. Ascites 5. Elevation of liver enzymes 6. Nausea and vomiting 7. leg tenderness, bilateral Plan: 1. Patient will be observed in telemetry. Pulse ox and oxygen therapy if necessary. 2. Patient will be admitted to our hospital for pain control only Patient and family (mother) refused further work-up and any procedures. So no starting will be called. TPN Pain management including IV Dilaudid Zofran 4 mg every 6 hours as needed for nausea and vomiting 3. Repeat liver function in morning 4. leg tenderness bilaterally. Patient and mother refused ultrasound Doppler. 5. DVT prophylaxis: Lovenox (home medication include Eliquis but patient is not able to take oral medications) 6. CODE STATUS: Full. Discussed with the patient and the mother who would like to have both CPR and intubation. Disposition: Patient has been accepted by palliative care physician Dr. Maguire into palliative care. Awaiting for being approved by his PCP Dr. Narayan Robles and insurance. Dr. Robles could not be reached today - Mortality Measure Prognosis:: Poor
[2020-08-19] MEDS: HYDROmorphone 0.5 MG/0.5 ML Syringe IVPUSH PRN ×2 (20:19→23:06)
[2020-08-19] MEDS: Morphine 2 MG/ML SYRINGE IVPUSH PRN (21:38)
[2020-08-19] MEDS: Enoxaparin 40 MG/0.4 ML Syringe SUBCUT SCH (21:49)
[2020-08-19] MEDS: Ondansetron 4 MG/2 ML SDV IV PRN (23:06)
[2020-08-20] MEDS: HYDROmorphone 0.5 MG/0.5 ML Syringe IVPUSH PRN ×3 (02:00→06:44)
[2020-08-20] MEDS: Morphine 2 MG/ML SYRINGE IVPUSH PRN (03:18)
[2020-08-20] MEDS: Ondansetron 4 MG/2 ML SDV IV PRN ×3 (05:49→23:46)
[2020-08-20] MEDS: HYDROmorphone 1 MG/ML Syringe IVPUSH PRN ×7 (09:29→22:30)
[2020-08-20] MEDS: Enoxaparin 40 MG/0.4 ML Syringe SUBCUT SCH (09:33)
[2020-08-20] MEDS ORDERED: Scopolamine 1.5 MG Transdermal Patch TRDERM SCH (12:00)
--- NOTE | 2020-08-20 14:02 | PCM.PN ---
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 Patient complains of more abdominal pain, 9 out of 10 Tachycardia. Other vital signs are stable and acceptable. WBC 11.010 Hemoglobin 9.0 Potassium 3.6 AST 63 Spoke to hospice care team Dr. Iverson and Rbea who will probably be able to initiate hospice care tomorrow. Patient and mother would like to have palliative thoracenteses and paracenteses done in the hospital before he goes home. Spoke to Dr. Delcid who suggested patient follow with Dr. Sanchez in office. Dr. Sanchez can do these procedure in office if he feels necessary. Discussed with pt and mother the options: 1) follow with Dr. Sanchez as an outpatient patient; 2) transfer back to [place]. Patient refused to be transferred to back to [place]. Mom is in agreement with patient. I updated to Dr. Iverson and hope they can initiate hospice care for the young boy as soon as possible. - Review of Systems Systems Review Comment:: General: Reports: No Symptoms HEENT: Reports: No Symptoms Pulmonary: Reports: No Symptoms Cardiovascular: Reports: No Symptoms Gastrointestinal: Reports: Abdominal Pain, Nausea, Vomiting Genitourinary: Reports: No Symptoms Musculoskeletal: Reports: No Symptoms Skin: Reports: No Symptoms Psychiatric: Reports: No Symptoms Neurological: Reports: No Symptoms Hematologic/Lymphatic: Reports: No Symptoms Immunologic: Reports: No Symptoms - Patient Data Vitals - Most Recent: Last Vital Signs Temp 36.4 C 08/20/20 11:28 Pulse 105 H 08/20/20 11:28 Resp 16 08/20/20 11:28 BP 136/89 08/20/20 11:28 Pulse Ox 95 08/20/20 11:28 Weight - Most Recent: 118.025 kg I&O - Last 24 Hours: Intake & Output 08/19/20 08/20/20 08/20/20 22:59 06:59 14:59 Intake Total 701 Output Total 400 Balance 301 Lab Results Last 24 Hours: Laboratory Results - last 24 hr 04/28/21 04/28/21 04/28/21 Range/Units 17:51 19:13 19:13 WBC 11.08 H (4.23-9.07) K/mm3 RBC 3.52 L (4.63-6.08) M/mm3 Hgb 9.0 L (13.7-17.5) gm/dl Hct 31.9 L (40.1-51.0) % MCV 90.6 (79.0-92.2) fl MCH 25.6 L (25.7-32.2) pg MCHC 28.2 L (32.2-35.5) g/dl RDW Std Deviation 58.1 H (35.1-43.9) fL Plt Count 228 (163-337) K/mm3 MPV 12.7 H (9.4-12.3) fl Neut % (Auto) 76.3 H (34.0-67.9) % Lymph % (Auto) 11.1 L (21.8-53.1) % [place] % (Auto) 12.0 (5.3-12.2) % Eos % (Auto) 0.2 L (0.8-7.0) Baso % (Auto) 0.1 (0.1-1.2) % Neut # (Auto) 8.46 H (1.78-5.38) K/mm3 Lymph # (Auto) 1.23 L (1.32-3.57) K/mm3 [place] # (Auto) 1.33 H (0.30-0.82) K/mm3 Eos # (Auto) 0.02 L (0.04-0.54) K/mm3 Baso # (Auto) 0.01 (0.01-0.08) K/mm3 Manual Slide Review Abnormal smear Sodium (136-145) mEq/L Potassium (3.5-5.1) mEq/L Chloride (98-107) mEq/L Carbon Dioxide (21-32) mEq/L Anion Gap (5-15) BUN (7-18) mg/dL Creatinine (0.7-1.3) mg/dL Est Cr Clr Drug Dosing mL/min Estimated GFR (MDRD) (>60) mL/min BUN/Creatinine Ratio (14-18) Glucose (74-106) mg/dL Calcium (8.5-10.1) mg/dL Phosphorus 4.5 (2.6-4.7) mg/dL Magnesium 2.2 (1.8-2.4) mg/dl Total Bilirubin (0.2-1.0) mg/dL AST (15-37) U/L ALT (16-63) U/L Alkaline Phosphatase (46-116) U/L Troponin I < 0.017 (0.00-0.056) ng/mL Total Protein (6.4-8.2) g/dl Albumin (3.4-5.0) g/dl Globulin gm/dL Albumin/Globulin Ratio (1-2) SARS-CoV-2 RNA (MARI) Negative (NEGATIVE) 08/19/20 08/20/20 08/20/20 Range/Units 19:13 05:57 05:57 WBC 11.10 H (4.23-9.07) K/mm3 RBC 3.54 L (4.63-6.08) M/mm3 Hgb 9.0 L (13.7-17.5) gm/dl Hct 32.1 L (40.1-51.0) % MCV 90.7 (79.0-92.2) fl MCH 25.4 L (25.7-32.2) pg MCHC 28.0 L (32.2-35.5) g/dl RDW Std Deviation 58.6 H (35.1-43.9) fL Plt Count 212 (163-337) K/mm3 MPV 12.7 H (9.4-12.3) fl Neut % (Auto) 76.0 H (34.0-67.9) % Lymph % (Auto) 11.9 L (21.8-53.1) % [place] % (Auto) 11.1 (5.3-12.2) % Eos % (Auto) 0.4 L (0.8-7.0) Baso % (Auto) 0.2 (0.1-1.2) % Neut # (Auto) 8.45 H (1.78-5.38) K/mm3 Lymph # (Auto) 1.32 (1.32-3.57) K/mm3 [place] # (Auto) 1.23 H (0.30-0.82) K/mm3 Eos # (Auto) 0.04 (0.04-0.54) K/mm3 Baso # (Auto) 0.02 (0.01-0.08) K/mm3 Manual Slide Review Abnormal smear Sodium 141 141 (136-145) mEq/L Potassium 3.3 L 3.6 (3.5-5.1) mEq/L Chloride 102 102 (98-107) mEq/L Carbon Dioxide 30 28 (21-32) mEq/L Anion Gap 12.3 14.6 (5-15) BUN 17 18 (7-18) mg/dL Creatinine 0.6 L 0.5 L (0.7-1.3) mg/dL Est Cr Clr Drug Dosing 190.95 229.14 mL/min Estimated GFR (MDRD) > 60 > 60 (>60) mL/min BUN/Creatinine Ratio 28.3 H 36.0 H (14-18) Glucose 100 97 (74-106) mg/dL Calcium 8.7 8.8 (8.5-10.1) mg/dL Phosphorus (2.6-4.7) mg/dL Magnesium (1.8-2.4) mg/dl Total Bilirubin 0.6 0.7 (0.2-1.0) mg/dL AST 61 H 63 H (15-37) U/L ALT 22 23 (16-63) U/L Alkaline Phosphatase 135 H 140 H (46-116) U/L Troponin I (0.00-0.056) ng/mL Total Protein 6.6 6.6 (6.4-8.2) g/dl Albumin 2.2 L 2.2 L (3.4-5.0) g/dl Globulin 4.4 4.4 gm/dL Albumin/Globulin Ratio 0.5 L 0.5 L (1-2) SARS-CoV-2 RNA (MARI) (NEGATIVE) Med Orders - Current: Current Medications Albuterol/Ipratropium (Albuterol/Ipratropium 3.0-0.5 Mg/3 Ml Neb Soln) 3 ml NEB Q4H PRN PRN Reason: Shortness Of Breath/wheezing Amlodipine Besylate (Amlodipine 10 Mg Tab) 10 mg PO DAILY EVAN Apixaban (Apixaban 5 Mg Tab) 5 mg PO BID EVAN Hydralazine HCl (Hydralazine 20 Mg/Ml Sdv) 10 mg IVPUSH Q4H PRN PRN Reason: Hypertension Hydralazine HCl (Hydralazine 25 Mg Tab) 25 mg PO TID [facility] Hydromorphone HCl (Hydromorphone 1 Mg/Ml Syringe) 1.5 mg IVPUSH Q2H PRN PRN Reason: Pain Tpn Custom By Vashti: (Pt's Own Tpn) 1,500 mls @ 62.5 mls/hr IVPUSH Q24H [facility] Miscellaneous Information (Remove Scopolamine Patch) 1 ea TRDERM Q72H [facility] Last Admin: 08/20/20 13:02 Dose: 1 ea Documented by: Morphine Sulfate (Morphine 2 Mg/Ml Syringe) 2 mg IVPUSH Q4H PRN PRN Reason: Pain (moderate 4-6) Stop: 08/20/20 17:45 Last Admin: 08/20/20 03:18 Dose: 2 mg Documented by: Ondansetron HCl (Ondansetron 4 Mg/2 Ml Sdv) 4 mg IV Q6H PRN PRN Reason: Nausea/Vomiting Last Admin: 08/20/20 11:17 Dose: 4 mg Documented by: Pantoprazole Sodium (Pantoprazole 40 Mg Tab.Cr) 40 mg PO BID [facility] Scopolamine (Scopolamine 1.5 Mg Transdermal Patch) 1.5 mg TRDERM Q72H [facility] Last Admin: 08/20/20 13:01 Dose: 1.5 mg Documented by: Discontinued Medications Enoxaparin Sodium (Enoxaparin 40 Mg/0.4 Ml Syringe) 40 mg SUBCUT DAILY [facility] Last Admin: 08/20/20 09:33 Dose: Not Given Documented by: Hydromorphone HCl (Hydromorphone 1 Mg/Ml Syringe) 1 mg IVPUSH ONETIME ONE Stop: 08/19/20 15:34 Last Admin: 08/19/20 15:53 Dose: 1 mg Documented by: Hydromorphone HCl (Hydromorphone 1 Mg/Ml Syringe) 1 mg IVPUSH ONETIME ONE Stop: 08/19/20 17:14 Last Admin: 08/19/20 17:24 Dose: 0.5 mg Documented by: Hydromorphone HCl (Hydromorphone 0.5 Mg/0.5 Ml Syringe) 0.5 mg IVPUSH Q2H PRN PRN Reason: Pain (severe 7-10) Last Admin: 08/20/20 06:44 Dose: 0.5 mg Documented by: Hydromorphone HCl (Hydromorphone 1 Mg/Ml Syringe) 1 mg IVPUSH Q2H PRN PRN Reason: Pain Last Admin: 08/20/20 11:17 Dose: 1 mg Documented by: Amino Ac/Electrol/Dextrose/Calcium (Clinimix E 5/20) 1,000 mls @ 20 mls/hr IV TITRATE EVAN; Protocol Lactated Ringer's (Ringers, Lactated) 1,000 mls @ 50 mls/hr IV ASDIRECTED EVAN Last Infusion: 08/20/20 04:30 Dose: 0 mls/hr Documented by: Metoclopramide HCl (Metoclopramide 10 Mg/2 Ml Sdv) 5 mg IVPUSH ONETIME ONE Stop: 08/19/20 17:11 Last Admin: 08/19/20 17:24 Dose: 5 mg Documented by: Ondansetron HCl (Ondansetron 4 Mg/2 Ml Sdv) 4 mg IVPUSH ONETIME ONE Stop: 08/19/20 15:59 Last Admin: 08/19/20 16:00 Dose: 4 mg Documented by: Ondansetron HCl (Ondansetron 4 Mg/2 Ml Sdv) Confirm Administered Dose 4 mg .ROUTE .STK-MED ONE Stop: 08/19/20 15:59 Last Admin: 08/19/20 17:25 Dose: Not Given Documented by: - Exam Physical Findings Comments:: General: Alert, Oriented, Cooperative HEENT: Conjunctiva Clear, EOMI, Pupils Equal, Pupils Reactive Neck: Supple, Trachea Midline, Full Range of Motion Lungs: Normal Respiratory Effort, Decreased Breath Sounds Cardiovascular: Regular Rate, Regular Rhythm, Normal S1, Normal S2 GI/Abdominal Exam: Distended, Tender, Abnormal Bowel Sounds Extremities: Normal Inspection, Normal Range of Motion, No Pedal Edema. No: Non-Tender (tenderness, b/l) Skin: Warm, Dry, Intact Neurological: Strength Equal Bilateral, Normal Speech, Normal Tone, Sensation Intact Neuro Extensive - Mental Status: Alert, Oriented x3, Normal Mood/Affect Psychiatric: Normal Mood - Patient Data Lab Results Last 24 hrs: Laboratory Results - last 24 hr 08/19/20 08/19/20 08/19/20 Range/Units 17:51 19:13 19:13 WBC 11.08 H (4.23-9.07) K/mm3 RBC 3.52 L (4.63-6.08) M/mm3 Hgb 9.0 L (13.7-17.5) gm/dl Hct 31.9 L (40.1-51.0) % MCV 90.6 (79.0-92.2) fl MCH 25.6 L (25.7-32.2) pg MCHC 28.2 L (32.2-35.5) g/dl RDW Std Deviation 58.1 H (35.1-43.9) fL Plt Count 228 (163-337) K/mm3 MPV 12.7 H (9.4-12.3) fl Neut % (Auto) 76.3 H (34.0-67.9) % Lymph % (Auto) 11.1 L (21.8-53.1) % [place] % (Auto) 12.0 (5.3-12.2) % Eos % (Auto) 0.2 L (0.8-7.0) Baso % (Auto) 0.1 (0.1-1.2) % Neut # (Auto) 8.46 H (1.78-5.38) K/mm3 Lymph # (Auto) 1.23 L (1.32-3.57) K/mm3 [place] # (Auto) 1.33 H (0.30-0.82) K/mm3 Eos # (Auto) 0.02 L (0.04-0.54) K/mm3 Baso # (Auto) 0.01 (0.01-0.08) K/mm3 Manual Slide Review Abnormal smear Sodium (136-145) mEq/L Potassium (3.5-5.1) mEq/L Chloride (98-107) mEq/L Carbon Dioxide (21-32) mEq/L Anion Gap (5-15) BUN (7-18) mg/dL Creatinine (0.7-1.3) mg/dL Est Cr Clr Drug Dosing mL/min Estimated GFR (MDRD) (>60) mL/min BUN/Creatinine Ratio (14-18) Glucose (74-106) mg/dL Calcium (8.5-10.1) mg/dL Phosphorus 4.5 (2.6-4.7) mg/dL Magnesium 2.2 (1.8-2.4) mg/dl Total Bilirubin (0.2-1.0) mg/dL AST (15-37) U/L ALT (16-63) U/L Alkaline Phosphatase (46-116) U/L Troponin I < 0.017 (0.00-0.056) ng/mL Total Protein (6.4-8.2) g/dl Albumin (3.4-5.0) g/dl Globulin gm/dL Albumin/Globulin Ratio (1-2) SARS-CoV-2 RNA (MARI) Negative (NEGATIVE) 08/19/20 08/20/20 08/20/20 Range/Units 19:13 05:57 05:57 WBC 11.10 H (4.23-9.07) K/mm3 RBC 3.54 L (4.63-6.08) M/mm3 Hgb 9.0 L (13.7-17.5) gm/dl Hct 32.1 L (40.1-51.0) % MCV 90.7 (79.0-92.2) fl MCH 25.4 L (25.7-32.2) pg MCHC 28.0 L (32.2-35.5) g/dl RDW Std Deviation 58.6 H (35.1-43.9) fL Plt Count 212 (163-337) K/mm3 MPV 12.7 H (9.4-12.3) fl Neut % (Auto) 76.0 H (34.0-67.9) % Lymph % (Auto) 11.9 L (21.8-53.1) % [place] % (Auto) 11.1 (5.3-12.2) % Eos % (Auto) 0.4 L (0.8-7.0) Baso % (Auto) 0.2 (0.1-1.2) % Neut # (Auto) 8.45 H (1.78-5.38) K/mm3 Lymph # (Auto) 1.32 (1.32-3.57) K/mm3 [place] # (Auto) 1.23 H (0.30-0.82) K/mm3 Eos # (Auto) 0.04 (0.04-0.54) K/mm3 Baso # (Auto) 0.02 (0.01-0.08) K/mm3 Manual Slide Review Abnormal smear Sodium 141 141 (136-145) mEq/L Potassium 3.3 L 3.6 (3.5-5.1) mEq/L Chloride 102 102 (98-107) mEq/L Carbon Dioxide 30 28 (21-32) mEq/L Anion Gap 12.3 14.6 (5-15) BUN 17 18 (7-18) mg/dL Creatinine 0.6 L 0.5 L (0.7-1.3) mg/dL Est Cr Clr Drug Dosing 190.95 229.14 mL/min Estimated GFR (MDRD) > 60 > 60 (>60) mL/min BUN/Creatinine Ratio 28.3 H 36.0 H (14-18) Glucose 100 97 (74-106) mg/dL Calcium 8.7 8.8 (8.5-10.1) mg/dL Phosphorus (2.6-4.7) mg/dL Magnesium (1.8-2.4) mg/dl Total Bilirubin 0.6 0.7 (0.2-1.0) mg/dL AST 61 H 63 H (15-37) U/L ALT 22 23 (16-63) U/L Alkaline Phosphatase 135 H 140 H (46-116) U/L Troponin I (0.00-0.056) ng/mL Total Protein 6.6 6.6 (6.4-8.2) g/dl Albumin 2.2 L 2.2 L (3.4-5.0) g/dl Globulin 4.4 4.4 gm/dL Albumin/Globulin Ratio 0.5 L 0.5 L (1-2) SARS-CoV-2 RNA (MARI) (NEGATIVE) Result Diagrams: 08/20/20 05:57 08/20/20 05:57 Sepsis Event Note - Evaluation Sepsis Screening Result: No Definite Risk - Focused Exam Vital Signs: Vital Signs Temp Pulse Resp BP Pulse Ox Pulse Ox Pulse Ox 08/20/20 11:28 36.4 C 105 H 16 136/89 95 08/20/20 08:33 36.9 C 107 H 16 138/93 H 94 L 08/20/20 08:19 91 L 08/20/20 06:20 95 08/20/20 03:46 36.7 C 116 H 18 143/94 H 97 08/20/20 02:13 94 L - Problem List Review Problem List Initiated/Reviewed/Updated: Yes - My Orders Last 24 Hours: My Active Orders 08/19/20 Dinner Nothing per Oral Now Diet [DIET] 08/19/20 17:39 Patient Status [ADT] Routine Oxygen Therapy [RC] PRN Up to Chair [RC] ASDIRECTED VTE/DVT Education [RC] PER UNIT ROUTINE Vital Signs [RC] Q4HR Consult to Print Traffic Manager [CONS] Routine Albuterol/Ipratropium [DuoNeb 3.0-0.5 MG/3 ML] 3 ml NEB Q4H PRN Morphine 2 mg IVPUSH Q4H PRN Ondansetron [Zofran] 4 mg IV Q6H PRN Resuscitation Status Routine 08/19/20 17:43 Cardiac Monitoring [RC] CONTINUOUS Pulse Oximetry [RC] CONTINUOUS 08/19/20 17:46 RT Aerosol Therapy [RC] ASDIRECTED 08/19/20 17:48 Accu Check [Blood Glucose Check, Bedside] [RC] QIDACANDBED 08/19/20 17:55 hydrALAZINE [Apresoline] 10 mg IVPUSH Q4H PRN 08/19/20 21:00 Non-Formulary Medication [NF Drug] 1,500 each IVPUSH Q24H 08/20/20 08:44 Consult to Hospice [CONS] Routine 08/20/20 11:31 HYDROmorphone [Dilaudid] 1.5 mg IVPUSH Q2H PRN 08/20/20 12:00 Apixaban [Eliquis] 5 mg PO BID Pantoprazole [ProTONIX] 40 mg PO BID Remove Patch 1 ea TRDERM Q72H Scopolamine [Transderm-Scop] 1.5 mg TRDERM Q72H amLODIPine [Norvasc] 10 mg PO DAILY 08/20/20 15:00 hydrALAZINE [Apresoline] 25 mg PO TID 08/21/20 05:00 CBC WITH AUTO DIFF [HEME] DAILY COMPREHENSIVE METABOLIC PN,CMP [CHEM] DAILY 08/22/20 05:00 CBC WITH AUTO DIFF [HEME] DAILY COMPREHENSIVE METABOLIC PN,CMP [CHEM] DAILY 08/23/20 05:00 CBC WITH AUTO DIFF [HEME] DAILY COMPREHENSIVE METABOLIC PN,CMP [CHEM] DAILY 08/24/20 05:00 CBC WITH AUTO DIFF [HEME] DAILY COMPREHENSIVE METABOLIC PN,CMP [CHEM] DAILY - Plan Plan:: Patient is a 29-year-old male with a 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 Assessment: 1. Metastatic signit ring cell carcinoma 2. Small bowel obstruction, partial? 3. Pleural effusion, bilateral 4. Ascites 5. Elevation of liver enzymes 6. Nausea and vomiting 7. leg tenderness, bilateral 8. Hepatic vein thrombosis? Plan: 1. Patient will be observed in telemetry. Pulse ox and oxygen therapy if necess madina. 2. Patient will be admitted to our hospital for pain control only Patient has pleural effusion and ascites. Palliative care team Dr. Iverson suggested to do palliative thoracentesis and paracentesis. Spoke to Dr. Delcid who suggested patient follow with Dr. Sanchez in office. Dr. Sanchez can do these procedure in office if he feels necessary. Discussed with pt and mother the options: 1) follow with Dr. Sanchez as an outpatient patient; 2) transfer back to [place]. Patient refused to be transferred to back to [place]. Mom is in agreement with patient. TPN Pain management including IV Dilaudid (patient has a lot of pain. As per request from patient and mom, he is on Dilaudid 1.5 mg every 2 hours as needed. I explained the pain medication can suppress respiration to both patient and mom who fully understood the side effects of the pain medications) Zofran 4 mg every 6 hours as needed for nausea and vomiting 3. Repeat liver function in morning 4. leg tenderness bilaterally. Patient and mother refused ultrasound Doppler. 5. 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 Since patient has a small bowel obstruction, both patient and mom agreed to have most important and oral medications only including Eliquis. Furthermore patient does not like Lovenox shot. 5. DVT prophylaxis: Eliquis 6. CODE STATUS: Full. Discussed with the patient and the mother who would like to have both CPR and intubation. Disposition: Patient will possibly be discharged to home hospice care tomorrow with Dr. Maguire. f/u with PCP Dr. Narayan Robles
[2020-08-20] MEDS: amLODIPine 10 MG Tab PO SCH (14:08)
[2020-08-20] MEDS: Pantoprazole 40 MG Tab.CR PO SCH ×2 (14:08→20:40)
[2020-08-20] MEDS: Apixaban 5 MG Tab PO SCH ×2 (14:09→20:41)
--- NOTE | 2020-08-20 15:28 | PCM.DCSUM1 ---
Discharge Summary - Hospital Course Diagnosis: Stroke: No - Discharge Data Discharge Date: 08/21/20 Discharge Disposition: Home, Self-Care 01 Condition: Good - Referral to Home Health Primary Care Physician: Narayan Robles NP - Patient Summary/Data Consults: Consultations 08/19/20 17:39 Consult to Emt Intermediate [CONS] Routine 08/20/20 08:44 Consult to Hospice [CONS] Routine - Discharge Plan Home Medications: Home Meds Cyclobenzaprine [Flexeril] 10 mg PO BID PRN 04/20/20 [History] Escitalopram [Lexapro] 10 mg PO DAILY 05/29/20 [History] LORazepam [Ativan] 0.5 mg PO ASDIRECTED 05/29/20 [History] Promethazine [Phenergan] 25 mg TOP Q6H PRN 05/29/20 [History] Apixaban [Eliquis] 5 mg PO BID 07/01/20 [History] Cannabidiol (Cbd) Extract [CBD Oil] 1 dose PO ASDIRECTED PRN 07/01/20 [History] Furosemide [Lasix] 40 mg PO DAILY 08/03/20 [History] Melatonin 5 mg PO BEDTIME 08/03/20 [History] Mirtazapine [Remeron] 15 mg PO BEDTIME 08/03/20 [History] Ondansetron [Zofran ODT] 4 mg SL Q6H PRN 08/03/20 [History] amLODIPine [Norvasc] 10 mg PO DAILY 08/03/20 [History] hydrALAZINE [Apresoline] 25 mg PO TID 08/03/20 [History] Pantoprazole [ProTONIX] 1 tab PO BID 08/19/20 [History] Scopolamine [Transderm-Scop] 1 dose TRDERM ASDIRECTED 08/19/20 [History] fentaNYL [Duragesic] 50 mcg TD ASDIRECTED 08/19/20 [History] oxyCODONE 20 mg PO Q4H PRN 08/19/20 [History] oxyCODONE HCl [Oxycontin] 30 mg PO BID PRN 08/19/20 [History] Patient Handouts: Parenteral Nutrition, Adult, Chronic Pain, Adult, Opioid Pain Medicine Management, [id number] Forms: ED Department Discharge Referrals: Narayan Robles NP [Primary Care Provider] - - Patient Data Vitals - Most Recent: Last Vital Signs Temp 36.4 C 08/20/20 11:28 Pulse 105 H 08/20/20 11:28 Resp 16 08/20/20 11:28 BP 136/89 08/20/20 11:28 Pulse Ox 95 08/20/20 11:28 Weight - Most Recent: 118.025 kg I&O - Last 24 hours: Intake & Output 08/20/20 08/20/20 08/20/20 06:59 14:59 22:59 Intake Total 701 Output Total 400 Balance 301 Lab Results - Last 24 hrs: Laboratory Results - last 24 hr 08/19/20 08/19/20 08/19/20 Range/Units 17:51 19:13 19:13 WBC 11.08 H (4.23-9.07) K/mm3 RBC 3.52 L (4.63-6.08) M/mm3 Hgb 9.0 L (13.7-17.5) gm/dl Hct 31.9 L (40.1-51.0) % MCV 90.6 (79.0-92.2) fl MCH 25.6 L (25.7-32.2) pg MCHC 28.2 L (32.2-35.5) g/dl RDW Std Deviation 58.1 H (35.1-43.9) fL Plt Count 228 (163-337) K/mm3 MPV 12.7 H (9.4-12.3) fl Neut % (Auto) 76.3 H (34.0-67.9) % Lymph % (Auto) 11.1 L (21.8-53.1) % [place] % (Auto) 12.0 (5.3-12.2) % Eos % (Auto) 0.2 L (0.8-7.0) Baso % (Auto) 0.1 (0.1-1.2) % Neut # (Auto) 8.46 H (1.78-5.38) K/mm3 Lymph # (Auto) 1.23 L (1.32-3.57) K/mm3 [place] # (Auto) 1.33 H (0.30-0.82) K/mm3 Eos # (Auto) 0.02 L (0.04-0.54) K/mm3 Baso # (Auto) 0.01 (0.01-0.08) K/mm3 Manual Slide Review Abnormal smear Sodium (136-145) mEq/L Potassium (3.5-5.1) mEq/L Chloride (98-107) mEq/L Carbon Dioxide (21-32) mEq/L Anion Gap (5-15) BUN (7-18) mg/dL Creatinine (0.7-1.3) mg/dL Est Cr Clr Drug Dosing mL/min Estimated GFR (MDRD) (>60) mL/min BUN/Creatinine Ratio (14-18) Glucose (74-106) mg/dL POC Glucose (70-99) mg/dL Calcium (8.5-10.1) mg/dL Phosphorus 4.5 (2.6-4.7) mg/dL Magnesium 2.2 (1.8-2.4) mg/dl Total Bilirubin (0.2-1.0) mg/dL AST (15-37) U/L ALT (16-63) U/L Alkaline Phosphatase (46-116) U/L Troponin I < 0.017 (0.00-0.056) ng/mL Total Protein (6.4-8.2) g/dl Albumin (3.4-5.0) g/dl Globulin gm/dL Albumin/Globulin Ratio (1-2) SARS-CoV-2 RNA (MARI) Negative (NEGATIVE) 08/19/20 08/19/20 08/20/20 Range/Units 19:13 23:04 05:57 WBC 11.10 H (4.23-9.07) K/mm3 RBC 3.54 L (4.63-6.08) M/mm3 Hgb 9.0 L (13.7-17.5) gm/dl Hct 32.1 L (40.1-51.0) % MCV 90.7 (79.0-92.2) fl MCH 25.4 L (25.7-32.2) pg MCHC 28.0 L (32.2-35.5) g/dl RDW Std Deviation 58.6 H (35.1-43.9) fL Plt Count 212 (163-337) K/mm3 MPV 12.7 H (9.4-12.3) fl Neut % (Auto) 76.0 H (34.0-67.9) % Lymph % (Auto) 11.9 L (21.8-53.1) % [place] % (Auto) 11.1 (5.3-12.2) % Eos % (Auto) 0.4 L (0.8-7.0) Baso % (Auto) 0.2 (0.1-1.2) % Neut # (Auto) 8.45 H (1.78-5.38) K/mm3 Lymph # (Auto) 1.32 (1.32-3.57) K/mm3 [place] # (Auto) 1.23 H (0.30-0.82) K/mm3 Eos # (Auto) 0.04 (0.04-0.54) K/mm3 Baso # (Auto) 0.02 (0.01-0.08) K/mm3 Manual Slide Review Abnormal smear Sodium 141 (136-145) mEq/L Potassium 3.3 L (3.5-5.1) mEq/L Chloride 102 (98-107) mEq/L Carbon Dioxide 30 (21-32) mEq/L Anion Gap 12.3 (5-15) BUN 17 (7-18) mg/dL Creatinine 0.6 L (0.7-1.3) mg/dL Est Cr Clr Drug Dosing 190.95 mL/min Estimated GFR (MDRD) > 60 (>60) mL/min BUN/Creatinine Ratio 28.3 H (14-18) Glucose 100 (74-106) mg/dL POC Glucose 107 H (70-99) mg/dL Calcium 8.7 (8.5-10.1) mg/dL Phosphorus (2.6-4.7) mg/dL Magnesium (1.8-2.4) mg/dl Total Bilirubin 0.6 (0.2-1.0) mg/dL AST 61 H (15-37) U/L ALT 22 (16-63) U/L Alkaline Phosphatase 135 H (46-116) U/L Troponin I (0.00-0.056) ng/mL Total Protein 6.6 (6.4-8.2) g/dl Albumin 2.2 L (3.4-5.0) g/dl Globulin 4.4 gm/dL Albumin/Globulin Ratio 0.5 L (1-2) SARS-CoV-2 RNA (MARI) (NEGATIVE) 08/20/20 08/20/20 08/20/20 Range/Units 05:57 06:50 11:33 WBC (4.23-9.07) K/mm3 RBC (4.63-6.08) M/mm3 Hgb (13.7-17.5) gm/dl Hct (40.1-51.0) % MCV (79.0-92.2) fl MCH (25.7-32.2) pg MCHC (32.2-35.5) g/dl RDW Std Deviation (35.1-43.9) fL Plt Count (163-337) K/mm3 MPV (9.4-12.3) fl Neut % (Auto) (34.0-67.9) % Lymph % (Auto) (21.8-53.1) % [place] % (Auto) (5.3-12.2) % Eos % (Auto) (0.8-7.0) Baso % (Auto) (0.1-1.2) % Neut # (Auto) (1.78-5.38) K/mm3 Lymph # (Auto) (1.32-3.57) K/mm3 [place] # (Auto) (0.30-0.82) K/mm3 Eos # (Auto) (0.04-0.54) K/mm3 Baso # (Auto) (0.01-0.08) K/mm3 Manual Slide Review Sodium 141 (136-145) mEq/L Potassium 3.6 (3.5-5.1) mEq/L Chloride 102 (98-107) mEq/L Carbon Dioxide 28 (21-32) mEq/L Anion Gap 14.6 (5-15) BUN 18 (7-18) mg/dL Creatinine 0.5 L (0.7-1.3) mg/dL Est Cr Clr Drug Dosing 229.14 mL/min Estimated GFR (MDRD) > 60 (>60) mL/min BUN/Creatinine Ratio 36.0 H (14-18) Glucose 97 (74-106) mg/dL POC Glucose 97 116 H (70-99) mg/dL Calcium 8.8 (8.5-10.1) mg/dL Phosphorus (2.6-4.7) mg/dL Magnesium (1.8-2.4) mg/dl Total Bilirubin 0.7 (0.2-1.0) mg/dL AST 63 H (15-37) U/L ALT 23 (16-63) U/L Alkaline Phosphatase 140 H (46-116) U/L Troponin I (0.00-0.056) ng/mL Total Protein 6.6 (6.4-8.2) g/dl Albumin 2.2 L (3.4-5.0) g/dl Globulin 4.4 gm/dL Albumin/Globulin Ratio 0.5 L (1-2) SARS-CoV-2 RNA (MARI) (NEGATIVE) Med Orders - Current: Current Medications Albuterol/Ipratropium (Albuterol/Ipratropium 3.0-0.5 Mg/3 Ml Neb Soln) 3 ml NEB Q4H PRN PRN Reason: Shortness Of Breath/wheezing Amlodipine Besylate (Amlodipine 10 Mg Tab) 10 mg PO DAILY [facility] Last Admin: 08/20/20 14:08 Dose: Not Given Documented by: Apixaban (Apixaban 5 Mg Tab) 5 mg PO BID [facility] Last Admin: 08/20/20 14:09 Dose: Not Given Documented by: Hydralazine HCl (Hydralazine 20 Mg/Ml Sdv) 10 mg IVPUSH Q4H PRN PRN Reason: Hypertension Hydralazine HCl (Hydralazine 25 Mg Tab) 25 mg PO TID [facility] Hydromorphone HCl (Hydromorphone 1 Mg/Ml Syringe) 1.5 mg IVPUSH Q2H PRN PRN Reason: Pain Last Admin: 08/20/20 13:48 Dose: 1.5 mg Documented by: Tpn Custom By [place]: (Pt's Own Tpn) 1,500 mls @ 62.5 mls/hr IVPUSH Q24H [facility] Miscellaneous Information (Remove Scopolamine Patch) 1 ea TRDERM Q72H [facility] Last Admin: 08/20/20 13:02 Dose: 1 ea Documented by: Morphine Sulfate (Morphine 2 Mg/Ml Syringe) 2 mg IVPUSH Q4H PRN PRN Reason: Pain (moderate 4-6) Stop: 08/20/20 17:45 Last Admin: 08/20/20 03:18 Dose: 2 mg Documented by: Ondansetron HCl (Ondansetron 4 Mg/2 Ml Sdv) 4 mg IV Q6H PRN PRN Reason: Nausea/Vomiting Last Admin: 08/20/20 11:17 Dose: 4 mg Documented by: Pantoprazole Sodium (Pantoprazole 40 Mg Tab.Cr) 40 mg PO BID [facility] Last Admin: 08/20/20 14:08 Dose: Not Given Documented by: Scopolamine (Scopolamine 1.5 Mg Transdermal Patch) 1.5 mg TRDERM Q72H [facility] Last Admin: 08/20/20 13:01 Dose: 1.5 mg Documented by: Discontinued Medications Enoxaparin Sodium (Enoxaparin 40 Mg/0.4 Ml Syringe) 40 mg SUBCUT DAILY [facility] Last Admin: 08/20/20 09:33 Dose: Not Given Documented by: Hydromorphone HCl (Hydromorphone 1 Mg/Ml Syringe) 1 mg IVPUSH ONETIME ONE Stop: 08/19/20 15:34 Last Admin: 08/19/20 15:53 Dose: 1 mg Documented by: Hydromorphone HCl (Hydromorphone 1 Mg/Ml Syringe) 1 mg IVPUSH ONETIME ONE Stop: 08/19/20 17:14 Last Admin: 08/19/20 17:24 Dose: 0.5 mg Documented by: Hydromorphone HCl (Hydromorphone 0.5 Mg/0.5 Ml Syringe) 0.5 mg IVPUSH Q2H PRN PRN Reason: Pain (severe 7-10) Last Admin: 08/20/20 06:44 Dose: 0.5 mg Documented by: Hydromorphone HCl (Hydromorphone 1 Mg/Ml Syringe) 1 mg IVPUSH Q2H PRN PRN Reason: Pain Last Admin: 08/20/20 11:17 Dose: 1 mg Documented by: Amino Ac/Electrol/Dextrose/Calcium (Clinimix E 20) 1,000 mls @ 20 mls/hr IV TITRATE EVAN; Protocol Lactated Ringer's (Ringers, Lactated) 1,000 mls @ 50 mls/hr IV ASDIRECTED [facility] Last Infusion: 08/20/20 04:30 Dose: 0 mls/hr Documented by: Metoclopramide HCl (Metoclopramide 10 Mg/2 Ml Sdv) 5 mg IVPUSH ONETIME ONE Stop: 08/19/20 17:11 Last Admin: 08/19/20 17:24 Dose: 5 mg Documented by: Ondansetron HCl (Ondansetron 4 Mg/2 Ml Sdv) 4 mg IVPUSH ONETIME ONE Stop: 08/19/20 15:59 Last Admin: 08/19/20 16:00 Dose: 4 mg Documented by: Ondansetron HCl (Ondansetron 4 Mg/2 Ml Sdv) Confirm Administered Dose 4 mg .ROUTE .STK-MED ONE Stop: 08/19/20 15:59 Last Admin: 08/19/20 17:25 Dose: Not Given Documented by:
[2020-08-20] MEDS: hydrALAZINE 25 MG Tab PO SCH ×2 (19:20→20:40)
[2020-08-20] MEDS: [UNRECOGNIZED DRUG - NUTRITION] IVPUSH SCH ×2 (20:05→20:47)
[2020-08-21] MEDS: HYDROmorphone 1 MG/ML Syringe IVPUSH PRN ×4 (00:42→09:12)
--- NOTE | 2020-08-21 08:50 | PCM.DCSUM1 ---
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 Assessment: 1. Metastatic signit ring cell carcinoma 2. Small bowel obstruction, partial? 3. Pleural effusion, bilateral 4. Ascites 5. Elevation of liver enzymes 6. Nausea and vomiting 7. leg tenderness, bilateral 8. Hepatic vein thrombosis? Plan: 1. observed in telemetry. Pulse ox and oxygen therapy if necessary. 2. Pt and mother do not want to do further workup and pursue aggressive treatment. Patient will be admitted to our hospital for pain control only. Patient has pleural effusion and ascites. Palliative care team Dr. Iverson suggested to do palliative thoracentesis and paracentesis. Spoke to Dr. Delcid who suggested patient follow with Dr. Sanchez in office. Dr. Sanchez can do these procedure in office if he feels necessary. Discussed with pt and mother the options: 1) follow with Dr. Sanchez as an outpatient patient; 2) transfer back to [place]. Patient refused to be transferred to back to [place]. Mom is in agreement with patient. TPN Pain management including IV Dilaudid (patient has a lot of pain. As per request from patient and mom, he is on Dilaudid 1.5 mg every 2 hours as needed. I explained the pain medication can suppress respiration to both patient and mom who fully understood the side effects of the pain medications) Zofran 4 mg every 6 hours as needed for nausea and vomiting 3. Repeat liver function in morning 4. leg tenderness bilaterally. Patient and mother refused ultrasound Doppler. He has been on anticoagulation. 5. 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 Since patient has a small bowel obstruction, both patient and mom agreed to have most important oral medications only including Eliquis. Furthermore patient does not like Lovenox shot. 5. DVT prophylaxis: Eliquis 6. CODE STATUS: Full. Today patient does not have any new complaints. Denies headache, dizziness, chest pain, shortness of breath or diarrhea. vital signs are stable and acceptable. Discussed with hospice care/palliative care Dr. Ahmadi who will take the pt right away after he is discharged from our hospital. Patient will be discharged home to Dr. Ahmadi this morning for hospice care. Potassium 3.3 today, which will be replaced. follow with PCP in 3 days, Dr. Sanchez in one week and oncology in 1 week if needed. Repeat a CBC, CMP and electrolytes in 3 days and then weekly if needed. Do not drive until approval from MD. Call Dr. Ahmadi and PCP PCP Dr. Narayan Robles for medical issues. Diagnosis: Stroke: No - Discharge Data Discharge Date: 08/21/20 Discharge Disposition: DC/Tfer to Hospice - Home 52 Condition: Poor - Referral to Home Health Primary Care Physician: Narayan Robles [employer] REPAIRER - Patient Summary/Data Consults: Consultations 08/19/20 17:39 Consult to Alterations Tailor [CONS] Routine 08/20/20 08:44 Consult to Hospice [CONS] Routine Recommended Follow-up Testing/Procedures: follow with PCP in 3 days, Dr. Sanchez within one week and oncology in 1 week if needed. Repeat a CBC, CMP and electrolytes in 3 days and then weekly if needed. Do not drive until approval from MD. Call Dr. Ahmadi and PCP PCP Dr. Narayan Robles for medical issues. - Patient Instructions Diet: NPO Activity: As Tolerated Driving: Do Not Drive - Discharge Plan *PRESCRIPTION DRUG MONITORING PROGRAM REVIEWED*: Not Applicable *COPY OF PRESCRIPTION DRUG MONITORING REPORT IN PATIENT SIMONE: Not Applicable Home Medications: Home Meds Cyclobenzaprine [Flexeril] 10 mg PO BID PRN 04/20/20 [History] Escitalopram [Lexapro] 10 mg PO DAILY 05/29/20 [History] Apixaban [Eliquis] 5 mg PO BID 07/01/20 [History] Cannabidiol (Cbd) Extract [CBD Oil] 1 dose PO ASDIRECTED PRN 07/01/20 [History] Furosemide [Lasix] 40 mg PO DAILY 08/03/20 [History] Melatonin 5 mg PO BEDTIME 08/03/20 [History] Mirtazapine [Remeron] 15 mg PO BEDTIME 08/03/20 [History] Ondansetron [Zofran ODT] 4 mg SL Q6H PRN 08/03/20 [History] amLODIPine [Norvasc] 10 mg PO DAILY 08/03/20 [History] hydrALAZINE [Apresoline] 25 mg PO TID 08/03/20 [History] Pantoprazole [ProTONIX] 1 tab PO BID 08/19/20 [History] Scopolamine [Transderm-Scop] 1 dose TRDERM ASDIRECTED 08/19/20 [History] HYDROmorphone [Dilaudid] 1.5 mg IVPUSH Q2H PRN syringe 08/21/20 [Rx] Patient Handouts: Parenteral Nutrition, Adult, Chronic Pain, Adult, Opioid Pain Medicine Management, [id number] Forms: ED Department Discharge Referrals: Narayan Robles, [employer] PNE[employer] REPAIRER [Primary Care Provider] - see, Dr Villalpando and cole this morning [Other] - Discharge Summary/Plan Comment DC Time >30 min.: Yes - General Info Date of Service: 08/21/20 Admission Dx/Problem (Free Text: Admission Diagnosis/Problem Admission Diagnosis/Problem Pain Subjective Update: Patient is a 29-year-old male with a 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 Patient does not have any new complaints. - Review of Systems General: Reports: No Symptoms HEENT: Reports: No Symptoms Pulmonary: Reports: No Symptoms Cardiovascular: Reports: No Symptoms Gastrointestinal: Reports: Abdominal Pain Genitourinary: Reports: No Symptoms Musculoskeletal: Reports: No Symptoms Skin: Reports: No Symptoms Neurological: Reports: No Symptoms Psychiatric: Reports: No Symptoms - Patient Data Vitals - Most Recent: Last Vital Signs Temp 36.7 C 08/21/20 03:43 Pulse 116 H 08/21/20 03:43 Resp 18 08/21/20 03:43 BP 137/86 08/21/20 03:43 Pulse Ox 92 L 08/21/20 06:21 Weight - Most Recent: 118.841 kg I&O - Last 24 hours: Intake & Output 08/20/20 08/21/20 08/21/20 22:59 06:59 14:59 Intake Total 1250 1150 Output Total 650 Balance 600 1150 Lab Results - Last 24 hrs: Laboratory Results - last 24 hr 08/19/20 08/20/20 08/20/20 Range/Units 23:04 06:50 11:33 WBC (4.23-9.07) K/mm3 RBC (4.63-6.08) M/mm3 Hgb (13.7-17.5) gm/dl Hct (40.1-51.0) % MCV (79.0-92.2) fl MCH (25.7-32.2) pg MCHC (32.2-35.5) g/dl RDW Std Deviation (35.1-43.9) fL Plt Count (163-337) K/mm3 MPV (9.4-12.3) fl Neut % (Auto) (34.0-67.9) % Lymph % (Auto) (21.8-53.1) % [place] % (Auto) (5.3-12.2) % Eos % (Auto) (0.8-7.0) Baso % (Auto) (0.1-1.2) % Neut # (Auto) (1.78-5.38) K/mm3 Lymph # (Auto) (1.32-3.57) K/mm3 [place] # (Auto) (0.30-0.82) K/mm3 Eos # (Auto) (0.04-0.54) K/mm3 Baso # (Auto) (0.01-0.08) K/mm3 Manual Slide Review Sodium (136-145) mEq/L Potassium (3.5-5.1) mEq/L Chloride (98-107) mEq/L Carbon Dioxide (21-32) mEq/L Anion Gap (5-15) BUN (7-18) mg/dL Creatinine (0.7-1.3) mg/dL Est Cr Clr Drug Dosing mL/min Estimated GFR (MDRD) (>60) mL/min BUN/Creatinine Ratio (14-18) Glucose (74-106) mg/dL POC Glucose 107 H 97 116 H (70-99) mg/dL Calcium (8.5-10.1) mg/dL Total Bilirubin (0.2-1.0) mg/dL AST (15-37) U/L ALT (16-63) U/L Alkaline Phosphatase (46-116) U/L Total Protein (6.4-8.2) g/dl Albumin (3.4-5.0) g/dl Globulin gm/dL Albumin/Globulin Ratio (1-2) 08/20/20 08/20/20 08/21/20 Range/Units 16:43 20:30 05:09 WBC 10.99 H (4.23-9.07) K/mm3 RBC 3.54 L (4.63-6.08) M/mm3 Hgb 8.8 L (13.7-17.5) gm/dl Hct 32.0 L (40.1-51.0) % MCV 90.4 (79.0-92.2) fl MCH 24.9 L (25.7-32.2) pg MCHC 27.5 L (32.2-35.5) g/dl RDW Std Deviation 59.1 H (35.1-43.9) fL Plt Count 216 (163-337) K/mm3 MPV 13.0 H (9.4-12.3) fl Neut % (Auto) 79.6 H (34.0-67.9) % Lymph % (Auto) 9.3 L (21.8-53.1) % [place] % (Auto) 10.2 (5.3-12.2) % Eos % (Auto) 0.4 L (0.8-7.0) Baso % (Auto) 0.2 (0.1-1.2) % Neut # (Auto) 8.76 H (1.78-5.38) K/mm3 Lymph # (Auto) 1.02 L (1.32-3.57) K/mm3 [place] # (Auto) 1.12 H (0.30-0.82) K/mm3 Eos # (Auto) 0.04 (0.04-0.54) K/mm3 Baso # (Auto) 0.02 (0.01-0.08) K/mm3 Manual Slide Review Abnormal smear Sodium (136-145) mEq/L Potassium (3.5-5.1) mEq/L Chloride (98-107) mEq/L Carbon Dioxide (21-32) mEq/L Anion Gap (5-15) BUN (7-18) mg/dL Creatinine (0.7-1.3) mg/dL Est Cr Clr Drug Dosing mL/min Estimated GFR (MDRD) (>60) mL/min BUN/Creatinine Ratio (14-18) Glucose (74-106) mg/dL POC Glucose 97 88 (70-99) mg/dL Calcium (8.5-10.1) mg/dL Total Bilirubin (0.2-1.0) mg/dL AST (15-37) U/L ALT (16-63) U/L Alkaline Phosphatase (46-116) U/L Total Protein (6.4-8.2) g/dl Albumin (3.4-5.0) g/dl Globulin gm/dL Albumin/Globulin Ratio (1-2) 08/21/20 08/21/20 Range/Units 05:09 05:53 WBC (4.23-9.07) K/mm3 RBC (4.63-6.08) M/mm3 Hgb (13.7-17.5) gm/dl Hct (40.1-51.0) % MCV (79.0-92.2) fl MCH (25.7-32.2) pg MCHC (32.2-35.5) g/dl RDW Std Deviation (35.1-43.9) fL Plt Count (163-337) K/mm3 MPV (9.4-12.3) fl Neut % (Auto) (34.0-67.9) % Lymph % (Auto) (21.8-53.1) % [place] % (Auto) (5.3-12.2) % Eos % (Auto) (0.8-7.0) Baso % (Auto) (0.1-1.2) % Neut # (Auto) (1.78-5.38) K/mm3 Lymph # (Auto) (1.32-3.57) K/mm3 [place] # (Auto) (0.30-0.82) K/mm3 Eos # (Auto) (0.04-0.54) K/mm3 Baso # (Auto) (0.01-0.08) K/mm3 Manual Slide Review Sodium 140 (136-145) mEq/L Potassium 3.3 L (3.5-5.1) mEq/L Chloride 102 (98-107) mEq/L Carbon Dioxide 29 (21-32) mEq/L Anion Gap 12.3 (5-15) BUN 19 H (7-18) mg/dL Creatinine 0.5 L (0.7-1.3) mg/dL Est Cr Clr Drug Dosing 229.14 mL/min Estimated GFR (MDRD) > 60 (>60) mL/min BUN/Creatinine Ratio 38.0 H (14-18) Glucose 102 (74-106) mg/dL POC Glucose 111 H (70-99) mg/dL Calcium 8.5 (8.5-10.1) mg/dL Total Bilirubin 0.7 (0.2-1.0) mg/dL AST 57 H (15-37) U/L ALT 24 (16-63) U/L Alkaline Phosphatase 137 H (46-116) U/L Total Protein 6.4 (6.4-8.2) g/dl Albumin 2.1 L (3.4-5.0) g/dl Globulin 4.3 gm/dL Albumin/Globulin Ratio 0.5 L (1-2) Med Orders - Current: Current Medications Albuterol/Ipratropium (Albuterol/Ipratropium 3.0-0.5 Mg/3 Ml Neb Soln) 3 ml NEB Q4H PRN PRN Reason: Shortness Of Breath/wheezing Amlodipine Besylate (Amlodipine 10 Mg Tab) 10 mg PO DAILY [facility] Last Admin: 08/20/20 14:08 Dose: Not Given Documented by: Apixaban (Apixaban 5 Mg Tab) 5 mg PO BID [facility] Last Admin: 08/20/20 20:41 Dose: 5 mg Documented by: Hydralazine HCl (Hydralazine 20 Mg/Ml Sdv) 10 mg IVPUSH Q4H PRN PRN Reason: Hypertension Hydralazine HCl (Hydralazine 25 Mg Tab) 25 mg PO TID [facility] Last Admin: 08/20/20 20:40 Dose: 25 mg Documented by: Hydromorphone HCl (Hydromorphone 1 Mg/Ml Syringe) 1.5 mg IVPUSH Q2H PRN PRN Reason: Pain Last Admin: 08/21/20 05:56 Dose: 1.5 mg Documented by: Tpn Custom By [place]: (Pt's Own Tpn) 1,500 mls @ 62.5 mls/hr IVPUSH Q24H [facility] Last Admin: 08/20/20 20:47 Dose: Not Given Documented by: Potassium Chloride 10 meq/ (Premix) 100 mls @ 100 mls/hr IV Q1H [facility] Stop: 08/21/20 10:44 Miscellaneous Information (Remove Scopolamine Patch) 1 ea TRDERM Q72H [facility] Last Admin: 08/20/20 13:02 Dose: 1 ea Documented by: Ondansetron HCl (Ondansetron 4 Mg/2 Ml Sdv) 4 mg IV Q6H PRN PRN Reason: Nausea/Vomiting Last Admin: 08/20/20 23:46 Dose: 4 mg Documented by: Pantoprazole Sodium (Pantoprazole 40 Mg Tab.Cr) 40 mg PO BID [facility] Last Admin: 08/20/20 20:40 Dose: 40 mg Documented by: Scopolamine (Scopolamine 1.5 Mg Transdermal Patch) 1.5 mg TRDERM Q72H [facility] Last Admin: 08/20/20 13:01 Dose: 1.5 mg Documented by: Discontinued Medications Enoxaparin Sodium (Enoxaparin 40 Mg/0.4 Ml Syringe) 40 mg SUBCUT DAILY [facility] Last Admin: 08/20/20 09:33 Dose: Not Given Documented by: Hydromorphone HCl (Hydromorphone 1 Mg/Ml Syringe) 1 mg IVPUSH ONETIME ONE Stop: 08/19/20 15:34 Last Admin: 08/19/20 15:53 Dose: 1 mg Documented by: Hydromorphone HCl (Hydromorphone 1 Mg/Ml Syringe) 1 mg IVPUSH ONETIME ONE Stop: 08/19/20 17:14 Last Admin: 08/19/20 17:24 Dose: 0.5 mg Documented by: Hydromorphone HCl (Hydromorphone 0.5 Mg/0.5 Ml Syringe) 0.5 mg IVPUSH Q2H PRN PRN Reason: Pain (severe 7-10) Last Admin: 08/20/20 06:44 Dose: 0.5 mg Documented by: Hydromorphone HCl (Hydromorphone 1 Mg/Ml Syringe) 1 mg IVPUSH Q2H PRN PRN Reason: Pain Last Admin: 08/20/20 11:17 Dose: 1 mg Documented by: Amino Ac/Electrol/Dextrose/Calcium (Clinimix E 09/10) 1,000 mls @ 20 mls/hr IV TITRATE EVAN; Protocol Lactated Ringer's (Ringers, Lactated) 1,000 mls @ 50 mls/hr IV ASDIRECTED [facility] Last Infusion: 08/20/20 04:30 Dose: 0 mls/hr Documented by: Metoclopramide HCl (Metoclopramide 10 Mg/2 Ml Sdv) 5 mg IVPUSH ONETIME ONE Stop: 08/19/20 17:11 Last Admin: 08/19/20 17:24 Dose: 5 mg Documented by: Morphine Sulfate (Morphine 2 Mg/Ml Syringe) 2 mg IVPUSH Q4H PRN PRN Reason: Pain (moderate 4-6) Stop: 08/20/20 17:45 Last Admin: 08/20/20 03:18 Dose: 2 mg Documented by: Ondansetron HCl (Ondansetron 4 Mg/2 Ml Sdv) 4 mg IVPUSH ONETIME ONE Stop: 08/19/20 15:59 Last Admin: 08/19/20 16:00 Dose: 4 mg Documented by: Ondansetron HCl (Ondansetron 4 Mg/2 Ml Sdv) Confirm Administered Dose 4 mg .ROUTE .STK-MED ONE Stop: 08/19/20 15:59 Last Admin: 08/19/20 17:25 Dose: Not Given Documented by: - Exam Physical Findings Comments:: General: Alert, Oriented, Cooperative HEENT: Conjunctiva Clear, EOMI, Pupils Equal, Pupils Reactive Neck: Supple, Trachea Midline, Full Range of Motion Lungs: Normal Respiratory Effort, Decreased Breath Sounds Cardiovascular: Regular Rate, Regular Rhythm, Normal S1, Normal S2 GI/Abdominal Exam: Distended, Tender, Abnormal Bowel Sounds Extremities: Normal Inspection, Normal Range of Motion, No Pedal Edema. No: Non-Tender (tenderness, b/l) Skin: Warm, Dry, Intact Neurological: Strength Equal Bilateral, Normal Speech, Normal Tone, Sensation Intact Neuro Extensive - Mental Status: Alert, Oriented x3, Normal Mood/Affect Psychiatric: Normal Mood
[2020-08-21 09:00] VITALS: BP 141/92; PULSE 112
[2020-08-21] MEDS: Potassium Chloride 10 MEQ in Premix Bag 1 BAG IV SCH ×2 (09:21→09:46)
[2020-08-21] MEDS: Pantoprazole 40 MG Tab.CR PO SCH (12:27)
[2020-08-21] MEDS: amLODIPine 10 MG Tab PO SCH (12:27)
[2020-08-21] MEDS: Apixaban 5 MG Tab PO SCH (12:27)
[2020-08-21] MEDS: hydrALAZINE 25 MG Tab PO SCH (12:27)
== END 2020-08-21 10:07 | disposition hospice, home (50) ==
LOC: JD.ED 14:52 → JD.MS 17:39
PROVIDERS: ADMIT Internal Medicine; ATTEND Internal Medicine
DX: C16.9 Malignant neoplasm of stomach, unspecified (principal); J90 Pleural effusion, not elsewhere classified; R18.8 Other ascites; K56.609 Unspecified intestinal obstruction, unspecified as to partial versus complete obstruction; R11.2 Nausea with vomiting, unspecified; R74.01 Elevation of levels of liver transaminase levels; M79.605 Pain in left leg; M79.604 Pain in right leg; I10 Essential (primary) hypertension; E66.9 Obesity, unspecified; Z68.37 Body mass index [BMI] 37.0-37.9, adult; Z20.822 Contact with and (suspected) exposure to COVID-19; Z88.0 Allergy status to penicillin; Z88.8 Allergy status to other drugs, medicaments and biological substances; Z79.899 Other long term (current) drug therapy
CPT/HCPCS: 36415; 80053; 82947; 83735; 84100; 84484; 85025; 87635; 94762; 96374; 96375; 96376; 99285; A9270; J1170; J1650; J2270; J2405; J2765; J7120; 96372; 99283; G0378; J3480; U0002